=== PATIENT | female | born 1930 | race Caucasian/White ===

== ENCOUNTER 2021-07-25 14:07 | Observation (INO) | payer MEDICARE, OTHER ==
[~2021-07-25] VITALS: Ht 165.1 cm; Wt 58.9 kg
[2021-07-25] MEDS ORDERED: LEVO50TA5 PO (15:16)
[2021-07-25] MEDS ORDERED: ASPI-630 PO (15:16)
[2021-07-25] MEDS ORDERED: ACET325T21 PO (15:16)
[2021-07-25] MEDS ORDERED: CITA20TA6 PO (15:16)
[2021-07-25] MEDS ORDERED: TWOCAL HN PO (15:16)
[2021-07-25] MEDS ORDERED: GABA-586 PO (15:16)
[2021-07-25] MEDS ORDERED: ACET-1874 PO (15:16)
[2021-07-25] MEDS ORDERED: PANT40TA3 PO (15:16)
[2021-07-25] MEDS ORDERED: DONE10TA61 PO (15:16)
[2021-07-25 15:56] VITALS: BP 115/71
[2021-07-25] MEDS ORDERED: QUET25TA5 PO (15:57)
[2021-07-25] MEDS ORDERED: QUEtiapine 25 MG TABLET. PO PRN (16:00)
[2021-07-25] MEDS ORDERED: ACETAMINOPHEN 325 MG TABLET PO PRN (16:00)
[2021-07-25 17:15] LABS: BASO % 1 % (0-3); EOS # 0.1 x10^3/uL (0.0-0.7); EOS % 2 % (0-3); HEMATOCRIT 38.4 % (36.0-47.0); HEMOGLOBIN 12.3 g/dL (12.0-15.5); LYMPH # 1.6 x10^3/uL (1.0-4.8); LYMPH % 26 % (24-48); MEAN CORPUSCULAR HEMOGLOBIN 28 pg (25-35); MEAN CORPUSCULAR HGB CONC 32 g/dL (31-37); MEAN CORPUSCULAR VOLUME 87 fL (79-100); MONO # 0.5 x10^3/uL (0.0-1.1); MONO % 8 % (0-9); NEUT % 64 % (31-73); PLATELET COUNT 245 x10^3/uL (140-400); RED BLOOD COUNT 4.43 x10^6/uL (3.50-5.40); RED CELL DISTRIBUTION WIDTH 15.9 % (11.5-14.5); WHITE BLOOD COUNT 6.2 x10^3/uL (4.0-11.0)
[2021-07-25 17:33] LABS: ALBUMIN/GLOBULIN RATIO 0.9 (1.0-1.7); CALCIUM 8.4 mg/dL (8.5-10.1); CREATININE 0.8 mg/dL (0.6-1.0); GFR 67.7; MAGNESIUM 2.3 mg/dL (1.8-2.4); POTASSIUM 3.8 mmol/L (3.5-5.1); TOTAL BILIRUBIN 0.2 mg/dL (0.2-1.0); TOTAL PROTEIN 6.4 g/dL (6.4-8.2)
--- NOTE | 2021-07-25 17:38 | NUR ---
NURSING NOTE ADMIT ADMIT TO ROOM 124 FOR [facility] 48 HOUR HOLD. PT WILL NOT STAY IN HER ROOM, VERBALLY AGGRESSIVE, ATTEMPT TO ELOPE, YELLING, DEMANDING. UNABLE TO RE DIRECT PT TO HER ROOM. NURSING CONSULTING SYSTEMS ENGINEER NOTIFIED, JOSH, STATES OKAY TO LEAVE DOOR OPEN AND HAVE GUS RAMOS MONITOR HER FOR ELOPEMENT UNTIL PT CAN CALM DOWN. DR DOAN NOTIFIED OF ADMISSION, HOME MEDS RECONCILED. PT REFUSED DINNER. NIA BERMUDEZ.
[2021-07-25] MEDS ORDERED: HALOPERIDOL LACT 5 MG/ML VIAL. IM ONE (17:45)
[2021-07-25 19:53] VITALS: BP 124/78
[2021-07-25] MEDS ORDERED: GABAPENTIN 300 MG CAPSULE. PO SCH (21:00)
[2021-07-25] MEDS ORDERED: DONEPEZIL HCL 10 MG TABLET PO SCH (21:00)
--- NOTE | 2021-07-26 00:40 | NUR ---
Nursing Note Pt in room confused, walks out periodically looking for her , difficult to redirect at times. Takes po meds willingly whole. Denies pain or other complaints lungs are clear. Resting in bed with the TV on at this time. Cooperative with redirection.
[2021-07-26] MEDS ORDERED: LEVOTHYROXINE 50 MCG TABLET PO SCH (06:00)
--- NOTE | 2021-07-26 07:40 | NUR ---
Nursing Note Report given to Kiana KRAMER on [facility], [phone]. Documents faxed to [facility].
[2021-07-26] MEDS ORDERED: PANTOPRAZOLE 40 MG TABLET. PO SCH (09:00)
[2021-07-26] MEDS ORDERED: CITALOPRAM 20 MG TABLET. PO SCH (09:00)
[2021-07-26] MEDS ORDERED: ASPIRIN CHEWABLE 81 MG TABLET. PO SCH (09:00)
[2021-07-26 18:37] LABS: FREE T4 1.01 ng/dL (0.76-1.46); THYROID STIM HORMONE (TSH) 2.403 uIU/mL (0.358-3.740)
[2021-07-27 01:12] LABS: HEMOGLOBIN A1C 5.6 % (4.8-5.6)
--- NOTE | 2021-07-30 02:37 | SSS ---
ADMIT DATE: 07/25/2021 HISTORY OF PRESENT ILLNESS: The patient is an 89-year-old female patient, resident at [facility] in [facility] by her primary care physician on account of worsening confusion within the context of her diagnosis of major neurocognitive disorder, Alzheimer, vascular with delusion, depression. She was admitted to [address] [place] [address] and there was screened for coronavirus and as her coronavirus by PCR was negative, she was admitted to [facility] for inpatient psychiatric stabilization. PAST MEDICAL HISTORY: Significant for history of encephalopathy, status post urinary tract infection, atherosclerotic heart disease, coronary artery disease with angina pectoris, peripheral vascular disease, hypothyroidism, anxiety disorder. PAST SURGICAL HISTORY: Significant for tonsillectomy. ALLERGIES: SHE IS ALLERGIC TO MEPERIDINE, OLANZAPINE, TRAZODONE, AMBIEN, AND DEMEROL. CODE STATUS: Full. FAMILY HISTORY: Noncontributory. SOCIAL HISTORY: She is currently a resident at [facility] in [place], [place]. She apparently does not smoke, drink alcohol or use any recreational drugs. MEDICATIONS: She is currently on following medications: Sertraline 50 mg daily, gabapentin 600 mg at bedtime, Aricept 10 mg at bedtime, aspirin 81 mg once a day, milk of magnesia 30 mL p.o. daily p.r.n. for constipation, multivitamin one tablet once a day, Protonix 40 mg once a day, levothyroxine sodium 50 mcg daily and quetiapine fumarate 12.5 mg every 4 hours and acetaminophen 650 mg daily. PHYSICAL EXAMINATION: GENERAL: On examining her, the patient was somewhat pale, but no jaundice, cyanosis, no lymphadenopathy, no thyromegaly, no jugular venous distention. No limb edema. VITAL SIGNS: Her heart rate was 61, blood pressure was 124/78, temperature was 98.2, respiratory rate was 18 and oxygen saturation was 93% on room air. HEENT: She is normocephalic, atraumatic. NECK: Supple. HEART: Normal first and second heart sounds, no gallop, rub or murmur. CHEST: Clear to auscultation. No crepitation or rhonchi. ABDOMEN: Scaphoid, soft, nontender. NEUROLOGIC: She was grossly intact. All her cranial nerves are intact. She moves extremities without difficulty. She ambulates without assistance or assistive devices. LABORATORY DATA: Her lab work on admission showed a white cell count of 6200, hemoglobin 12, hematocrit 38, MCV 87 and platelet count 245,000 with normal manual differential. Her chemistry showed a serum sodium of 141, potassium 3.8, chloride 107, bicarbonate 27, anion gap of 7, BUN 23, creatinine 0.8. Estimated GFR was 67 mL per minute. Her glucose was 104, calcium was 8.4, magnesium was 2.3. Total bilirubin, AST, ALT, alkaline phosphatase were normal. Total protein 6.4, albumin 3. Her TSH was 2.403. Her free T4 was 1.01 and total T3 was 73. Her vitamin B12 was 301 picograms per mL and 25-hydroxy vitamin D was low at 24. Her serum triglycerides was 155. Total cholesterol was 221, LDL cholesterol 119, VLDL was 31, HDL cholesterol was 72 and the ratio was 3. Her serum iron was 54, TIBC was 326 and iron saturation was 17. Her hemoglobin A1c was 5.6. Her D-dimer was only 0.4 mg per liter and her treponema pallidum antibodies were nonreactive and coronavirus by PCR was negative. ASSESSMENT AND PLAN: The patient was [facility] to [facility] for inpatient psychiatric stabilization by her primary care physician on account of worsening confusion within the context of her diagnosis of major neurocognitive disorder. She apparently has been extremely impulsive, aggressive, throwing tables, combative towards her and was admitted for inpatient psychiatric stabilization. CARLA MARIE: Nav TID: [id number]
== END 2021-07-26 07:34 ==
LOC: 1 SOUTH 15:52
PROVIDERS: ADMIT Hospitalist; ATTEND Hospitalist
DX: G30.9 Alzheimer's disease, unspecified (principal); F02.80 Dementia in other diseases classified elsewhere, unspecified severity, without behavioral disturbance, psychotic disturbance, mood disturbance, and anxiety; F32.9 Major depressive disorder, single episode, unspecified; I25.10 Atherosclerotic heart disease of native coronary artery without angina pectoris; E03.9 Hypothyroidism, unspecified; I73.9 Peripheral vascular disease, unspecified
CPT/HCPCS: G0378 ×2; 36415; 80053; 80061; 82306; 82607; 83036; 83540; 83550; 83735; 84439; 84443; 84480; 85025; 85379; 86592; 87426; 93005; G0379; U0003

== ENCOUNTER 2021-07-26 07:35 | Inpatient (IN) | payer MEDICARE, OTHER ==
[~2021-07-26] VITALS: Ht 167.6 cm; Wt 61.0 kg
[~2021-07-26 07:35] MED LIST: ACET-1874 PO; ACET325T21 PO; ASPI-630 PO; CITA20TA6 PO; DONE10TA61 PO; GABA-586 PO; LEVO50TA5 PO; PANT40TA3 PO; QUET25TA5 PO; TWOCAL HN PO
[2021-07-26] MEDS ORDERED: ACETAMINOPHEN 325 MG TABLET PO PRN ×2 (07:45→08:15)
[2021-07-26 08:15] VITALS: BP 102/67
[2021-07-26] MEDS ORDERED: METHYL SALICYLATE/MENTHOL TOPICAL OINTMENT 57GM TUBE. TP PRN (08:15)
[2021-07-26] MEDS ORDERED: MAG HYDROX/AL HYDROX/SIMETH 30 ML ORAL.SUSP PO PRN (08:15)
[2021-07-26] MEDS ORDERED: MAGNESIUM HYDROXIDE 2,400 MG/30 ML ORAL.SUSP. PO PRN (08:15)
--- NOTE | 2021-07-26 08:16 | NUR ---
Admission Note with Justification for Admission to [facility] Patient admitted to [facility] for protective oversight for emergency stabilization of acute psychiatric crisis. Pt admitted from: SNF Mode of arrival: W/C Accompanied By: [facility] Staff Precipitating behaviors that initiated intake and admission: Pt was agitated, verbally aggressive, irritable, throwing food, cursing exit seeking. Description of failure of out patient attempts at stabilization in previous setting list behavior and medication trials: Med adjustments attempted, behavior modification techniques but but unable to be managed as an outpatient. Behaviors and assessment findings upon admission: Pt pleasant but irritable, compliant with meds and assessments. Poor short term memory follows commands. Plan: Admit for protective oversight for adjustment and stabilization of medications, behaviors and mood. Intense treatment regimen including groups, medication adjustments, therapy, consistent regimen for ADL's, self care, and sleep hygiene. Daily monitoring by Inpatient staff, Psychiatry, and Medical Physician.
[2021-07-26 08:58] LABS: BACTERIA,URINE 0 /HPF (0-FEW); BILIRUBIN,URINE NEG (NEG); CLARITY,URINE CLEAR; COLOR,URINE YELLOW; GLUCOSE,URINE NEG (NEG); NITRITE,URINE NEG (NEG); RBC,URINE 0 /HPF (0-2); SQUAMOUS EPITHELIAL CELL,UR FEW /LPF; UROBILINOGEN,URINE 0.2 mg/dL (0.2 mg/dL); WBC,URINE OCC /HPF (0-4)
[2021-07-26] MEDS ORDERED: [UNRECOGNIZED DRUG - OTHER] PO SCH (09:00)
[2021-07-26] MEDS: PANTOPRAZOLE 40 MG TABLET. PO SCH (09:19)
[2021-07-26] MEDS: LEVOTHYROXINE 50 MCG TABLET PO SCH (09:19)
[2021-07-26] MEDS: ASPIRIN CHEWABLE 81 MG TABLET. PO SCH (09:19)
[2021-07-26] MEDS: CITALOPRAM 20 MG TABLET. PO SCH (09:19)
--- NOTE | 2021-07-26 14:49 | NUR ---
Risk management/legal has reviewed Vnaesa Justin's POA HC document and determined that all three persons listed on the document are POA's. Therefore, information can be shared with each person listed on the POA document. BASSEM called Serafin Zheng, brother, back as Serafin had spoken to BASSEM earlier in the day requesting an update. Informed Serafin of risk management/legal determination and answered questions that Serafin had. Provided Serafin with pass code for future updates. BASSEM contacted Lisa, daughter, to inform of above as Lisa had completed consent to treats for Vanesa Justin's admission.
[2021-07-26 15:58] VITALS: BP 114/75
--- NOTE | 2021-07-26 17:00 | NUR ---
Nursing note: Pt has been pleasant, med compliant and cooperative this shift. She has had no complaints of pain/concerns. This afternoon, pt did begin to get worked up and paced the hallway, but was able to calm down on her own. She is currently sitting quietly in her room preparing for supper. Will continue to monitor.
[2021-07-26] MEDS: DONEPEZIL HCL 10 MG TABLET PO SCH (21:56)
[2021-07-26] MEDS: GABAPENTIN 300 MG CAPSULE. PO SCH (21:56)
--- NOTE | 2021-07-26 22:02 | PDOC ---
Exam Note: Ignacio Note: Please also refer to the separate dictated note~for this date of service dictated separately.~Patient seen individually. Discussed the patient with Nursing staff reviewed the chart.~Reviewed interim history and current functioning. Reviewed vital signs,~Labs/ Radiology~and current medications noted below. Continue current treatment with the changes noted in the dictated addendum note Assessment: Vital Signs/I&O: Vital Signs Date Time Temp Pulse Resp B/P (MAP) Pulse Ox O2 Delivery O2 Flow Rate FiO2 07/26/21 15:58 98.6 79 16 114/75 (88) 95 Labs: Laboratory Tests Test 07/26/21 08:00 Urine Collection Type Unknown Urine Color Yellow Urine Clarity Clear Urine pH 5.5 Urine Specific Stewart 1.025 Urine Protein Neg (NEG-TRACE) Urine Glucose (UA) Neg mg/dL (NEG) Urine Ketones (Stick) Neg mg/dL (NEG) Urine Blood Neg (NEG) Urine Nitrite Neg (NEG) Urine Bilirubin Neg (NEG) Urine Urobilinogen Dipstick 0.2 mg/dL (0.2 mg/dL) Urine Leukocyte Esterase Neg (NEG) Urine RBC 0 /HPF (0-2) Urine WBC Occ /HPF (0-4) Urine Squamous Epithelial Cells Few /LPF Urine Bacteria 0 /HPF (0-FEW) Urine Mucus Mod /LPF Current Medications: Meds: Current Medications Medications (Trade) Dose Ordered Sig/Ruth Route PRN Reason Start Time Stop Time Status Last Admin Dose Admin Aspirin (Aspirin Chewable) 81 mg DAILY PO 07/26/21 09:00 07/26/21 09:19 Citalopram Hydrobromide (CeleXA) 20 mg DAILY PO 07/26/21 09:00 07/26/21 09:19 Donepezil HCl (Aricept) 10 mg QHS PO 07/26/21 21:00 07/26/21 21:56 Gabapentin (Neurontin) 600 mg HS PO 07/26/21 21:00 07/26/21 21:56 Levothyroxine Sodium (Synthroid) 50 mcg DAILY06 PO 07/26/21 08:00 07/26/21 09:19 Pantoprazole Sodium (Protonix) 40 mg DAILYAC PO 07/26/21 08:00 07/26/21 09:19 I have reviewed the current psychotropics carefully including drug interactions. Risk benefit ratio favors no change other than as noted in my dictated progress note. Diagnosis: Problems: (1) Major neurocognitive disorder EVANS KWON MD Jul 26, 2021 22:02
--- NOTE | 2021-07-27 01:01 | NUR ---
Nursing Note The patient was located in her room laying in bed for her assessment and medication pass. The patient was pleasant during interactions with this nurse. The patient was alert to name only. The patient was compliant with her medications and took her medication whole. The patient is currently sleeping in her room.
[2021-07-27] MEDS: LEVOTHYROXINE 50 MCG TABLET PO SCH (06:07)
[2021-07-27 06:19] VITALS: BP 101/62
[2021-07-27] MEDS: CITALOPRAM 20 MG TABLET. PO SCH (08:56)
[2021-07-27] MEDS: ASPIRIN CHEWABLE 81 MG TABLET. PO SCH (08:56)
[2021-07-27] MEDS: PANTOPRAZOLE 40 MG TABLET. PO SCH (08:57)
--- NOTE | 2021-07-27 11:03 | NUR ---
WEEKLY ACTIVITY THERAPY NOTE Date of Admission: 07/26/21 Date of AT Assessment:TBD Precipitating behaviors that initiated intake and admission: Pt was agitated, verbally aggressive, irritable, throwing food, cursing exit seeking. Goal aimed: TBD Initial Goal: TBD Weekly progress towards goal: NA Group participation level: 1 full Weekly highlights: accepted a couple of magazines during meet the needs group Behaviors observed: new patient Plan: meet/assess pt Beneficial adaptations:reading material
--- NOTE | 2021-07-27 11:15 | NUR ---
WEEKLY NOTE/UPDATE: Vanesa is averaging 6.75 hours of sleep at night and intake of meals have been 70%. Vanesa is a new admit to [facility] as of 07/26/21. Vanesa is alert with confusion. She is oriented to herself and the year. She has been calm and cooperative taking medications whole. She has been observed to be helpful to others and accepted magazines from recreational therapy. Vanesa's family has strained relationships amongst themselves, including refusing to talk to one another and calling one another foul names. Lisa, daughter/ one POA, has expressed interest in moving Vanesa and her spouse to [place] to be closer to her. Vanesa has most recently been residing at [facility] and will return there if other arrangements are not in place at time of tentative d/c the middle of week after next. BASSEM Hollis, will follow Vanesa's case while hospitalized.
--- NOTE | 2021-07-27 11:25 | NUR ---
ACTIVITY THERAPY ASSESSMENT completed based on notes, observation and interview. Pt was agreeable to answer assessment questions. Pt said that she was not feeling well and her stomach felt nauseated. AT asked pt what activities she enjoys and she said playing with her grandkids, reading, watching tv/movies and sometimes crosswords. Pt was able to answer when her birthday is but stated the current year was 1929 and then 1829. Pt was unaware of the city she was in but is aware that she is in the hospital. Pt said that she lives in [place], [place] with her brother and . Pt said she thinks she has been for 30 years and has two children from a previous marriage. Pt reports that both of her children live in [place] but she is in good contact with them. Pt said that she lived in [place] for a few years but moved back when her parents became ill. AT asked pt if she reports and stress and she said yes because she is missing her kids. Pt said that she does not cope with stress very well. AT then asked pt if she ambulates well and she said she is able to move independently. Pt also reported that she has two dogs at home that are like her children. Pt remained calm and pleasant throughout assessment. Pt did appear to be a bit anxious at times. Per notes pt has been compliant and pleasant with staff. Initial goal aimed to increase stress management and relaxation skills. Pt will participate in at least five individual or group Activity Therapy sessions per week.
--- NOTE | 2021-07-27 13:10 | NUR ---
Pt is refusing to eat any meals stating that her stomach hurts. Nursing tried to get her to drink fluids and eat some crackers, because she had taken her morning medications, but she refused. She has been delusional, agitated, and aggressive throughout the day. Pt thinks she is a worker here at the [facility] and that we are holding her here at the hospital and not letting her leave. Pt called her nurse a "shan ass" and an "idiot" because her nurse was explaining to her she could not leave until the doctor cleared her to be discharged. She then told the nurse that no one is going to stop her from leaving the unit and she will make sure she gets out. Nurse told if she needed anything to please let her know and pt said back "I won't need anything from you, dumb bitch" and then followed up "and if I do need something, I will find someone that isn't you!"
--- NOTE | 2021-07-27 13:21 | NUR ---
BASSEM returned call to wilian Gonzalez, and provided update as requested.
[2021-07-27 16:30] VITALS: BP 130/80
[2021-07-27] MEDS: DONEPEZIL HCL 10 MG TABLET PO SCH (21:54)
[2021-07-27] MEDS: GABAPENTIN 300 MG CAPSULE. PO SCH (21:54)
--- NOTE | 2021-07-27 22:20 | PDOC ---
Exam Note: Ignacio Note: Please also refer to the separate dictated note~for this date of service dictated separately.~Patient seen individually. Discussed the patient with Nursing staff reviewed the chart.~Reviewed interim history and current functioning. Reviewed vital signs,~Labs/ Radiology~and current medications noted below. Continue current treatment with the changes noted in the dictated addendum note Assessment: Vital Signs/I&O: Vital Signs Date Time Temp Pulse Resp B/P (MAP) Pulse Ox O2 Delivery O2 Flow Rate FiO2 07/27/21 16:30 97.9 72 18 130/80 (97) 93 I & O 07/26/21 07/26/21 07/27/21 14:00 22:00 06:00 Intake Total 360 ml 480 ml 240 ml Balance 360 ml 480 ml 240 ml Current Medications: Meds: Current Medications Medications (Trade) Dose Ordered Sig/Ruth Route PRN Reason Start Time Stop Time Status Last Admin Dose Admin Acetaminophen (Tylenol) 650 mg PRN Q6HRS PRN PO pain or fever 07/26/21 07:45 Aspirin (Aspirin Chewable) 81 mg DAILY PO 07/26/21 09:00 07/27/21 08:56 Citalopram Hydrobromide (CeleXA) 20 mg DAILY PO 07/26/21 09:00 07/27/21 10:11 DC 07/27/21 08:56 Donepezil HCl (Aricept) 10 mg QHS PO 07/26/21 21:00 07/27/21 21:54 Gabapentin (Neurontin) 600 mg HS PO 07/26/21 21:00 07/27/21 21:54 Levothyroxine Sodium (Synthroid) 50 mcg DAILY06 PO 07/26/21 08:00 07/27/21 06:07 Pantoprazole Sodium (Protonix) 40 mg DAILYAC PO 07/26/21 08:00 07/27/21 08:57 Quetiapine Fumarate (SEROquel) 12.5 mg PRN Q4HRS PRN PO ANXIETY / AGITATION 07/26/21 07:45 Non-Formulary Medication ([TwoCal HN 2.0 liq] ) 60 ml BID PO 07/26/21 09:00 07/26/21 08:01 DC Acetaminophen (Tylenol) 650 mg PRN Q6HRS PRN PO MILD PAIN / TEMP > 100.3'F 07/26/21 08:15 07/26/21 08:33 DC Multi-Ingredient Ointment (Analgesic [place]) 1 judith PRN QID PRN TP MUSCLE PAIN 07/26/21 08:15 Al Hydroxide/Mg Hydroxide (Mylanta Plus Xs) 15 ml PRN AFTMEALHC PRN PO DYSPEPSIA 07/26/21 08:15 Magnesium Hydroxide (Milk Of Magnesia) 2,400 mg PRN QHS PRN PO CONSTIPATION 07/26/21 08:15 Sertraline HCl (Zoloft) 50 mg DAILY PO 07/28/21 09:00 I have reviewed the current psychotropics carefully including drug interactions. Risk benefit ratio favors no change other than as noted in my dictated progress note. Diagnosis: Problems: (1) Major neurocognitive disorder EVANS KWON MD Jul 27, 2021 22:20
--- NOTE | 2021-07-27 23:10 | HP ---
ADMIT DATE: 07/26/2021 PSYCHIATRIC ADMISSION AND HISTORY/EVALUATION This is a late entry, date of service 07/26/2021, covers the elements not covered in my initial note of 07/26/2021. IDENTIFYING DATA: The patient is an 89-year-old female referred to us from [facility] in [place], [place] by Dr. Anderson, primary care physician on account of worsening confusion within the context of her diagnosis of major neurocognitive disorder, Alzheimer, vascular with delusion, depression. She has been extremely impulsive, aggressive, tells her daughter she wants out of this world. She threw a table, was combative towards her and peer, agitated, verbally aggressive, cursing, exit seeking and throwing food. She failed outpatient psychiatric interventions resulting in this referral. I met with the patient on the evening of 07/26, discussed with nursing staff, reviewed the chart and previously discussed with Maame Lu, quality management coordinator. CHIEF COMPLAINT: "I'm okay." HISTORY OF PRESENT ILLNESS: The patient has a history of dementia, Alzheimer's, vascular type with worsening symptoms of depression and making suicidal statements in the recent past. She has appeared more confused, had sleep and appetite changes. No active homicidal ideation. Denies active suicidal ideation. She has been somewhat paranoid. No clear history of bipolar disorder. PAST PSYCHIATRIC HISTORY: As above. MEDICAL HISTORY: History of encephalopathy, status post urinary tract infection, atherosclerotic heart disease, coronary artery disease, angina pectoris, peripheral vascular disease, hypothyroidism, anxiety disorder. DRUG ALLERGIES: MEPERIDINE, OLANZAPINE, TRAZODONE, AMBIEN, DEMEROL. CODE STATUS: Full code. ACCU-CHEKS: None. DIET: Regular. Takes medications whole. Ambulates independently. UA is negative. FAMILY HISTORY: Noncontributory. SOCIAL HISTORY: No history of alcohol, drug abuse, physical, sexual or elder abuse. The patient is not known to be a perpetrator. REACTION TO HOSPITALIZATION: The patient accepting of it. IMPRESSION: Major neurocognitive disorder, Alzheimer, vascular with delusion, depression, behavioral disturbance, anxiety disorder, unspecified; impulse control disorder, unspecified; major depressive disorder, recurrent, severe. Rest unchanged from above. PLAN: Admit to Geropsychiatry unit at [facility]. I will see the patient daily individually from a psychiatric standpoint, medical followup, Dr. Cabrera/Dr. Valentin. Continue current psychotropics. We will consider adjustments in psychotropics post baseline. ESTIMATED LENGTH OF STAY: 10-12 days. DISPOSITION PLAN: Back to [facility] when stable. RICARDO/NIRAJ DR: RICARDO/anastasiya TID: [id number]
--- NOTE | 2021-07-28 00:04 | NUR ---
Nursing Note Pt in good spirits, pleasant and cooperative. No behaviors noted.
--- NOTE | 2021-07-28 00:48 | NUR ---
Nursing Note Pt wanders about in the [place], cooperative and compliant with meds and assessments. Pt denies complaints is confused with zero short term memory.
[2021-07-28] MEDS: LEVOTHYROXINE 50 MCG TABLET PO SCH (06:00)
[2021-07-28 06:13] VITALS: BP 124/73
[2021-07-28] MEDS: ASPIRIN CHEWABLE 81 MG TABLET. PO SCH (08:08)
[2021-07-28] MEDS: PANTOPRAZOLE 40 MG TABLET. PO SCH (08:08)
[2021-07-28] MEDS: SERTRALINE 50 MG TABLET. PO SCH (08:09)
--- NOTE | 2021-07-28 09:46 | PDOC ---
Exam Note: Ignacio Note: This note is a late entry for 07/27/2021 covers elements not covered in my initial note. Subjective: The patient was reviewed at treatment team meeting individually in the morning on 07/27/2021 with Michelle Tellez (social work case manager), Sima, activity therapy and Mustapha RN, discussed and reviewed the chart. The patient slept 6-3/4 hours previous night. She was helping the activity therapy staff with the cart. Discussed also with Ann RN in the evening, somewhat delusional in the evening, believed she worked here. Review of Systems: Ambulation impaired. No CV, , pulmonary, eye, ENT system symptoms on review. Reliability poor. Mental Status Exam: The patient is oriented to herself and year. Insight and judgment, recent and remote memory, attention and concentration, fund of knowledge is poor consistent with her diagnoses. Laboratory Data: Reviewed. Impression: Major neurocognitive disorder Alzheimer vascular with delusion, depression, behavioral disturbance. Anxiety disorder, unspecified. Impulse control disorder, unspecified. Plan: No change from initial note. Assessment: Vital Signs/I&O: Vital Signs Date Time Temp Pulse Resp B/P (MAP) Pulse Ox O2 Delivery O2 Flow Rate FiO2 07/28/21 06:13 96.9 70 14 124/73 (90) 91 I & O 07/27/21 07/27/21 07/28/21 14:00 22:00 06:00 Intake Total 360 ml 120 ml 120 ml Balance 360 ml 120 ml 120 ml Current Medications: Meds: Current Medications Medications (Trade) Dose Ordered Sig/Ruth Route PRN Reason Start Time Stop Time Status Last Admin Dose Admin Sertraline HCl (Zoloft) 50 mg DAILY PO 07/28/21 09:00 07/28/21 08:09 I have reviewed the current psychotropics carefully including drug interactions. Risk benefit ratio favors no change other than as noted in my dictated progress note. 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
--- NOTE | 2021-07-28 10:19 | NUR ---
Nurse Note Patient up for meals, Compliant with medication. No new behaviors noted. makes needs known to staff.socializes with staff and other patients.
[2021-07-28 15:43] VITALS: BP 106/58
[2021-07-28] MEDS: GABAPENTIN 300 MG CAPSULE. PO SCH (20:27)
[2021-07-28] MEDS: DONEPEZIL HCL 10 MG TABLET PO SCH (20:27)
--- NOTE | 2021-07-28 22:05 | PDOC ---
Exam Note: Ignacio Note: Please also refer to the separate dictated note~for this date of service dictated separately.~Patient seen individually. Discussed the patient with Nursing staff reviewed the chart.~Reviewed interim history and current functioning. Reviewed vital signs,~Labs/ Radiology~and current medications noted below. Continue current treatment with the changes noted in the dictated addendum note Assessment: Vital Signs/I&O: Vital Signs Date Time Temp Pulse Resp B/P (MAP) Pulse Ox O2 Delivery O2 Flow Rate FiO2 07/28/21 15:43 98.9 94 18 106/58 (74) 97 Room Air I & O 07/27/21 07/27/21 07/28/21 14:00 22:00 06:00 Intake Total 360 ml 120 ml 120 ml Balance 360 ml 120 ml 120 ml Current Medications: Meds: Current Medications Medications (Trade) Dose Ordered Sig/Ruth Route PRN Reason Start Time Stop Time Status Last Admin Dose Admin Acetaminophen (Tylenol) 650 mg PRN Q6HRS PRN PO pain or fever 07/26/21 07:45 Aspirin (Aspirin Chewable) 81 mg DAILY PO 07/26/21 09:00 07/28/21 08:08 Citalopram Hydrobromide (CeleXA) 20 mg DAILY PO 07/26/21 09:00 07/27/21 10:11 DC 07/27/21 08:56 Donepezil HCl (Aricept) 10 mg QHS PO 07/26/21 21:00 07/28/21 20:27 Gabapentin (Neurontin) 600 mg HS PO 07/26/21 21:00 07/28/21 20:27 Levothyroxine Sodium (Synthroid) 50 mcg DAILY06 PO 07/26/21 08:00 07/28/21 06:00 Pantoprazole Sodium (Protonix) 40 mg DAILYAC PO 07/26/21 08:00 07/28/21 08:08 Quetiapine Fumarate (SEROquel) 12.5 mg PRN Q4HRS PRN PO ANXIETY / AGITATION 07/26/21 07:45 Non-Formulary Medication ([TwoCal HN 2.0 liq] ) 60 ml BID PO 07/26/21 09:00 07/26/21 08:01 DC Acetaminophen (Tylenol) 650 mg PRN Q6HRS PRN PO MILD PAIN / TEMP > 100.3'F 07/26/21 08:15 07/26/21 08:33 DC Multi-Ingredient Ointment (Analgesic Solomon) 1 judith PRN QID PRN TP MUSCLE PAIN 07/26/21 08:15 Al Hydroxide/Mg Hydroxide (Mylanta Plus Xs) 15 ml PRN AFTMEALHC PRN PO DYSPEPSIA 07/26/21 08:15 Magnesium Hydroxide (Milk Of Magnesia) 2,400 mg PRN QHS PRN PO CONSTIPATION 07/26/21 08:15 Sertraline HCl (Zoloft) 50 mg DAILY PO 07/28/21 09:00 07/28/21 08:09 Current Medications Medications (Trade) Dose Ordered Sig/Ruth Route PRN Reason Start Time Stop Time Status Last Admin Dose Admin Sertraline HCl (Zoloft) 50 mg DAILY PO 07/28/21 09:00 07/28/21 08:09 I have reviewed the current psychotropics carefully including drug interactions. Risk benefit ratio favors no change other than as noted in my dictated progress note. Diagnosis: Problems: (1) Major neurocognitive disorder (2) Impulse control disorder, unspecified (3) Anxiety disorder, unspecified (4) Dementia, vascular, with depression (5) Dementia, vascular, with delusions (6) Dementia in Alzheimer's disease with depression (7) Dementia in Alzheimer's disease with delusions (8) Dementia of the Alzheimer's type with early onset with behavioral disturbance EVANS KWON MD Jul 28, 2021 22:05
[2021-07-29 04:30] VITALS: BP 113/70
[2021-07-29] MEDS: LEVOTHYROXINE 50 MCG TABLET PO SCH (06:00)
[2021-07-29] MEDS: SERTRALINE 50 MG TABLET. PO SCH (08:30)
[2021-07-29] MEDS: PANTOPRAZOLE 40 MG TABLET. PO SCH (08:30)
[2021-07-29] MEDS: ASPIRIN CHEWABLE 81 MG TABLET. PO SCH (08:30)
--- NOTE | 2021-07-29 10:20 | NUR ---
Pt remains confused and disorganized this shift. Absent of SI/HI/VH/AH/delusions/pain at this time. Pt absent of verbal aggression towards staff. She is compliant with whole medications and has no complaints/concerns at this time. Plan of care continues, will pass to next shift.
[2021-07-29 15:04] VITALS: BP 125/67
[2021-07-29] MEDS: GABAPENTIN 300 MG CAPSULE. PO SCH (20:26)
[2021-07-29] MEDS: DONEPEZIL HCL 10 MG TABLET PO SCH (20:26)
--- NOTE | 2021-07-29 22:17 | PDOC ---
Exam Note: Ignacio Note: Please also refer to the separate dictated note~for this date of service dictated separately.~Patient seen individually. Discussed the patient with Nursing staff reviewed the chart.~Reviewed interim history and current functioning. Reviewed vital signs,~Labs/ Radiology~and current medications noted below. Continue current treatment with the changes noted in the dictated addendum note Assessment: Vital Signs/I&O: Vital Signs Date Time Temp Pulse Resp B/P (MAP) Pulse Ox O2 Delivery O2 Flow Rate FiO2 07/29/21 15:04 98.0 78 18 125/67 (86) 97 07/28/21 15:43 Room Air I & O 07/28/21 07/28/21 07/29/21 14:00 22:00 06:00 Intake Total 700 ml 240 ml 240 ml Balance 700 ml 240 ml 240 ml Current Medications: Meds: Current Medications Medications (Trade) Dose Ordered Sig/Ruth Route PRN Reason Start Time Stop Time Status Last Admin Dose Admin Acetaminophen (Tylenol) 650 mg PRN Q6HRS PRN PO pain or fever 07/26/21 07:45 Aspirin (Aspirin Chewable) 81 mg DAILY PO 07/26/21 09:00 07/29/21 08:30 Citalopram Hydrobromide (CeleXA) 20 mg DAILY PO 07/26/21 09:00 07/27/21 10:11 DC 07/27/21 08:56 Donepezil HCl (Aricept) 10 mg QHS PO 07/26/21 21:00 07/29/21 20:26 Gabapentin (Neurontin) 600 mg HS PO 07/26/21 21:00 07/29/21 20:26 Levothyroxine Sodium (Synthroid) 50 mcg DAILY06 PO 07/26/21 08:00 07/29/21 06:00 Pantoprazole Sodium (Protonix) 40 mg DAILYAC PO 07/26/21 08:00 07/29/21 08:30 Quetiapine Fumarate (SEROquel) 12.5 mg PRN Q4HRS PRN PO ANXIETY / AGITATION 07/26/21 07:45 Non-Formulary Medication ([TwoCal HN 2.0 liq] ) 60 ml BID PO 07/26/21 09:00 07/26/21 08:01 DC Acetaminophen (Tylenol) 650 mg PRN Q6HRS PRN PO MILD PAIN / TEMP > 100.3'F 07/26/21 08:15 07/26/21 08:33 DC Multi-Ingredient Ointment (Analgesic [place]) 1 judith PRN QID PRN TP MUSCLE PAIN 07/26/21 08:15 Al Hydroxide/Mg Hydroxide (Mylanta Plus Xs) 15 ml PRN AFTMEALHC PRN PO DYSPEPSIA 07/26/21 08:15 Magnesium Hydroxide (Milk Of Magnesia) 2,400 mg PRN QHS PRN PO CONSTIPATION 07/26/21 08:15 Sertraline HCl (Zoloft) 50 mg DAILY PO 07/28/21 09:00 07/29/21 08:30 I have reviewed the current psychotropics carefully including drug interactions. Risk benefit ratio favors no change other than as noted in my dictated progress note. Diagnosis: Problems: (1) Major neurocognitive disorder (2) Impulse control disorder, unspecified (3) Anxiety disorder, unspecified (4) Dementia, vascular, with depression (5) Dementia, vascular, with delusions (6) Dementia in Alzheimer's disease with depression (7) Dementia in Alzheimer's disease with delusions (8) Dementia of the Alzheimer's type with early onset with behavioral disturbance EVANS KWON MD Jul 29, 2021 22:17
--- NOTE | 2021-07-29 23:09 | CONS ---
DATE OF CONSULTATION: 07/29/2021 REASON FOR CONSULTATION: Medical management. HISTORY OF PRESENT ILLNESS: The patient is an 89-year-old female patient who is a resident at [facility], in [place], [place], who was admitted for a short period of time in [address] [place] [address] and was screened for coronavirus and returned to be negative. The patient was admitted to [facility] for inpatient psychiatric stabilization. Apparently, she was referred to this facility by her primary care physician on account of worsening confusion within the context of her diagnosis of major neurocognitive disorder, Alzheimer, vascular with delusion, or depression. Medically, she has multiple medical problems including coronary artery disease with angina pectoris, peripheral vascular disease, hypothyroidism. PAST PSYCHIATRIC HISTORY: Significant for dementia, Alzheimer, vascular type with worsening symptoms of depression and making suicidal statements. PAST SURGICAL HISTORY: Significant for tonsillectomy. ALLERGIES: SHE IS ALLERGIC TO MEPERIDINE, OLANZAPINE, TRAZODONE, AMBIEN, AND DEMEROL. FAMILY HISTORY: Noncontributory. SOCIAL HISTORY: She is currently a resident at [facility] in [place], [place]. She apparently does not smoke, drink alcohol or use recreational drugs. PHYSICAL EXAMINATION: GENERAL: When I examined her this afternoon, she was sitting comfortably in her chair in no apparent respiratory distress. She was somewhat pale, cachectic with a body mass index 21.7. VITAL SIGNS: Her heart rate was 77, blood pressure is 113/70, temperature was 97.7, respiratory rate was 18 and oxygen saturation was 93% on room air. HEAD, EYES, EARS, NOSE, AND THROAT: Normocephalic, atraumatic. NECK: Supple. HEART: Showed normal first and second heart sounds, no gallop, rub or murmur. CHEST: Clear to auscultation. No crepitation or rhonchi. ABDOMEN: Scaphoid, soft, nontender. NEUROLOGIC: She was grossly intact. LABORATORY DATA: Reviewed and were unremarkable except for the fact that 25-hydroxy vitamin D is low at 24.1. PLAN: My plan is obviously to continue with all her current medication. I will start her also on vitamin D. Meanwhile, continue with all her other medication. We will monitor all her labs that are still pending and make any necessary recommendation. Thank you, Dr. Dhillon, for allowing me to participate in the care of this patient. AMM/MANUELA MARIE: Nav TID: [id number]
[2021-07-30] MEDS: LEVOTHYROXINE 50 MCG TABLET PO SCH (06:00)
[2021-07-30 06:14] VITALS: BP 112/68
[2021-07-30] MEDS: PANTOPRAZOLE 40 MG TABLET. PO SCH (07:30)
[2021-07-30] MEDS: ASPIRIN CHEWABLE 81 MG TABLET. PO SCH (08:36)
[2021-07-30] MEDS: SERTRALINE 50 MG TABLET. PO SCH (08:37)
--- NOTE | 2021-07-30 10:44 | NUR ---
RN DAY SHIFT NOTE: PT PRESENTS WITH PLEASANT MOOD/AFFECT. PT WAS MEDICATION COMPLIANT. PT IS LOW-BURK ON THE UNIT. PT IS NOTED TO SPEND TIME IN THE HALLWAY. PT IS INQUISITIVE AND WILL ASK STAFF QUESTIONS ABOUT HER STAY HERE. PT KNEW HER NAME AND BIRTHDAY. WHEN ASKED WHERE SHE IS PT STATED, "IN A ALF." PT VITALS WNL. PT SLEPT 7.75 HOURS LAST NIGHT. PT CONTINUES TO HAVE A GOOD APPETITE. WILL CONTINUE TO MONITOR.
[2021-07-30 15:52] VITALS: BP 117/67
[2021-07-30] MEDS: CHOLECALCIFEROL (VITAMIN D3) 50,000 UNIT CAPSULE PO SCH (20:54)
[2021-07-30] MEDS: GABAPENTIN 300 MG CAPSULE. PO SCH (20:54)
[2021-07-30] MEDS: DONEPEZIL HCL 10 MG TABLET PO SCH (20:54)
--- NOTE | 2021-07-30 22:03 | PDOC ---
Exam Note: Ignacio Note: Please also refer to the separate dictated note~for this date of service dictated separately.~Patient seen individually. Discussed the patient with Nursing staff reviewed the chart.~Reviewed interim history and current functioning. Reviewed vital signs,~Labs/ Radiology~and current medications noted below. Continue current treatment with the changes noted in the dictated addendum note Assessment: Vital Signs/I&O: Vital Signs Date Time Temp Pulse Resp B/P (MAP) Pulse Ox O2 Delivery O2 Flow Rate FiO2 07/30/21 15:52 97.9 87 16 117/67 (84) 94 07/28/21 15:43 Room Air I & O 07/29/21 07/29/21 07/30/21 15:00 23:00 07:00 Intake Total 840 ml 480 ml Balance 840 ml 480 ml Current Medications: Meds: Current Medications Medications (Trade) Dose Ordered Sig/Ruth Route PRN Reason Start Time Stop Time Status Last Admin Dose Admin Acetaminophen (Tylenol) 650 mg PRN Q6HRS PRN PO pain or fever 07/26/21 07:45 Aspirin (Aspirin Chewable) 81 mg DAILY PO 07/26/21 09:00 07/30/21 08:36 Citalopram Hydrobromide (CeleXA) 20 mg DAILY PO 07/26/21 09:00 07/27/21 10:11 DC 07/27/21 08:56 Donepezil HCl (Aricept) 10 mg QHS PO 07/26/21 21:00 07/30/21 20:54 Gabapentin (Neurontin) 600 mg HS PO 07/26/21 21:00 07/30/21 20:54 Levothyroxine Sodium (Synthroid) 50 mcg DAILY06 PO 07/26/21 08:00 07/30/21 06:00 Pantoprazole Sodium (Protonix) 40 mg DAILYAC PO 07/26/21 08:00 07/30/21 07:30 Quetiapine Fumarate (SEROquel) 12.5 mg PRN Q4HRS PRN PO ANXIETY / AGITATION 07/26/21 07:45 Non-Formulary Medication ([TwoCal HN 2.0 liq] ) 60 ml BID PO 07/26/21 09:00 07/26/21 08:01 DC Acetaminophen (Tylenol) 650 mg PRN Q6HRS PRN PO MILD PAIN / TEMP > 100.3'F 07/26/21 08:15 07/26/21 08:33 DC Multi-Ingredient Ointment (Analgesic [place]) 1 judith PRN QID PRN TP MUSCLE PAIN 07/26/21 08:15 Al Hydroxide/Mg Hydroxide (Mylanta Plus Xs) 15 ml PRN AFTMEALHC PRN PO DYSPEPSIA 07/26/21 08:15 Magnesium Hydroxide (Milk Of Magnesia) 2,400 mg PRN QHS PRN PO CONSTIPATION 07/26/21 08:15 Sertraline HCl (Zoloft) 50 mg DAILY PO 07/28/21 09:00 07/30/21 08:37 Vitamin D (Vitamin D3) 50,000 unit WEEKLY PO 07/30/21 16:30 07/30/21 20:54 Current Medications Medications (Trade) Dose Ordered Sig/Ruth Route PRN Reason Start Time Stop Time Status Last Admin Dose Admin Vitamin D (Vitamin D3) 50,000 unit WEEKLY PO 07/30/21 16:30 07/30/21 20:54 I have reviewed the current psychotropics carefully including drug interactions. Risk benefit ratio favors no change other than as noted in my dictated progress note. Diagnosis: Problems: (1) Major neurocognitive disorder (2) Impulse control disorder, unspecified (3) Anxiety disorder, unspecified (4) Dementia, vascular, with depression (5) Dementia, vascular, with delusions (6) Dementia in Alzheimer's disease with depression (7) Dementia in Alzheimer's disease with delusions (8) Dementia of the Alzheimer's type with early onset with behavioral disturbance EVANS KWON MD Jul 30, 2021 22:03
--- NOTE | 2021-07-31 00:06 | NUR ---
Pt sitting in hallway when approached. Pt pleasant, crying and anxious at times, delusional- she thinks her is in the hospital. Pt calmed with re-direction provided by staff. Pt cooperative with assessment and compliant with medications administered whole. No agitation or aggression noted thus far this shift.
[2021-07-31] MEDS: LEVOTHYROXINE 50 MCG TABLET PO SCH (05:20)
[2021-07-31 05:42] VITALS: BP 147/67
--- NOTE | 2021-07-31 06:44 | PDOC ---
Exam Note: Ignacio Note: This note is a late entry for 07/28/2021 covers elements not covered in my initial note. Subjective: The patient was seen face to face in the evening of 07/28/2021 with Ann KRAMER, discussed and reviewed the chart. The patient slept 5-1/2 hours previous night. She remains confused, but otherwise not aggressive, fairly quiet, withdrawn. Review of Systems: Ambulation impaired. No CV, , pulmonary, eye, ENT system symptoms on review. Mental Status Exam: The patient is oriented to herself and year. Insight and judgment, recent and remote memory, attention and concentration, fund of knowledge is poor consistent with her diagnoses. Laboratory Data: Reviewed. Impression: Major neurocognitive disorder Alzheimer vascular with delusion, depression, behavioral disturbance. Anxiety disorder, unspecified. Impulse control disorder, unspecified. Plan: No change from initial note. Assessment: Vital Signs/I&O: Vital Signs Date Time Temp Pulse Resp B/P (MAP) Pulse Ox O2 Delivery O2 Flow Rate FiO2 07/31/21 05:42 98.6 68 18 147/67 (93) 95 Room Air I & O 07/30/21 07/30/21 07/31/21 15:00 23:00 07:00 Intake Total 720 ml 840 ml Balance 720 ml 840 ml Current Medications: Meds: Current Medications Medications (Trade) Dose Ordered Sig/Ruth Route PRN Reason Start Time Stop Time Status Last Admin Dose Admin Acetaminophen (Tylenol) 650 mg PRN Q6HRS PRN PO pain or fever 07/26/21 07:45 Aspirin (Aspirin Chewable) 81 mg DAILY PO 07/26/21 09:00 07/30/21 08:36 Citalopram Hydrobromide (CeleXA) 20 mg DAILY PO 07/26/21 09:00 07/27/21 10:11 DC 07/27/21 08:56 Donepezil HCl (Aricept) 10 mg QHS PO 07/26/21 21:00 07/30/21 20:54 Gabapentin (Neurontin) 600 mg HS PO 07/26/21 21:00 07/30/21 20:54 Levothyroxine Sodium (Synthroid) 50 mcg DAILY06 PO 07/26/21 08:00 07/31/21 05:20 Pantoprazole Sodium (Protonix) 40 mg DAILYAC PO 07/26/21 08:00 07/30/21 07:30 Quetiapine Fumarate (SEROquel) 12.5 mg PRN Q4HRS PRN PO ANXIETY / AGITATION 07/26/21 07:45 Non-Formulary Medication ([TwoCal HN 2.0 liq] ) 60 ml BID PO 07/26/21 09:00 07/26/21 08:01 DC Acetaminophen (Tylenol) 650 mg PRN Q6HRS PRN PO MILD PAIN / TEMP > 100.3'F 07/26/21 08:15 07/26/21 08:33 DC Multi-Ingredient Ointment (Analgesic [place]) 1 judith PRN QID PRN TP MUSCLE PAIN 07/26/21 08:15 Al Hydroxide/Mg Hydroxide (Mylanta Plus Xs) 15 ml PRN AFTMEALHC PRN PO DYSPEPSIA 07/26/21 08:15 Magnesium Hydroxide (Milk Of Magnesia) 2,400 mg PRN QHS PRN PO CONSTIPATION 07/26/21 08:15 Sertraline HCl (Zoloft) 50 mg DAILY PO 07/28/21 09:00 07/30/21 08:37 Vitamin D (Vitamin D3) 50,000 unit WEEKLY PO 07/30/21 16:30 07/30/21 20:54 Current Medications Medications (Trade) Dose Ordered Sig/Ruth Route PRN Reason Start Time Stop Time Status Last Admin Dose Admin Vitamin D (Vitamin D3) 50,000 unit WEEKLY PO 07/30/21 16:30 07/30/21 20:54 I have reviewed the current psychotropics carefully including drug interactions. Risk benefit ratio favors no change other than as noted in my dictated progress note. Diagnosis: Problems: (1) Major neurocognitive disorder (2) Impulse control disorder, unspecified (3) Anxiety disorder, unspecified (4) Dementia, vascular, with depression (5) Dementia, vascular, with delusions (6) Dementia in Alzheimer's disease with depression (7) Dementia in Alzheimer's disease with delusions (8) Dementia of the Alzheimer's type with early onset with behavioral disturbance EVANS KWON MD Jul 31, 2021 06:44
--- NOTE | 2021-07-31 06:56 | PDOC ---
Exam Note: Ignacio Note: This note is a late entry for 07/29/2021 covers elements not covered in my initial note. Subjective: The patient was seen face to face in the evening of 07/29/2021 with Ann KRAMER, discussed and reviewed the chart. The patient slept 6-3/4 hours previous night. She remains confused. She believes she works here. 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 Review of Systems: Ambulation impaired. No CV, , pulmonary, eye, ENT system symptoms on review. Reliability poor. Mental Status Exam: The patient is oriented to herself and year. Insight and judgment, recent and remote memory, attention and concentration, fund of knowledge is poor consistent with her diagnoses. She is delusional. Laboratory Data: Reviewed. Impression: Major neurocognitive disorder Alzheimer vascular with delusion, depression, behavioral disturbance. Anxiety disorder, unspecified. Impulse co ntrol disorder, unspecified. Plan: No change from initial note. Assessment: Vital Signs/I&O: Vital Signs Date Time Temp Pulse Resp B/P (MAP) Pulse Ox O2 Delivery O2 Flow Rate FiO2 07/31/21 05:42 98.6 68 18 147/67 (93) 95 Room Air I & O 07/30/21 07/30/21 07/31/21 15:00 23:00 07:00 Intake Total 720 ml 840 ml Balance 720 ml 840 ml Current Medications: Meds: Current Medications Medications (Trade) Dose Ordered Sig/Ruth Route PRN Reason Start Time Stop Time Status Last Admin Dose Admin Acetaminophen (Tylenol) 650 mg PRN Q6HRS PRN PO pain or fever 07/26/21 07:45 Aspirin (Aspirin Chewable) 81 mg DAILY PO 07/26/21 09:00 07/30/21 08:36 Citalopram Hydrobromide (CeleXA) 20 mg DAILY PO 07/26/21 09:00 07/27/21 10:11 DC 07/27/21 08:56 Donepezil HCl (Aricept) 10 mg QHS PO 07/26/21 21:00 07/30/21 20:54 Gabapentin (Neurontin) 600 mg HS PO 07/26/21 21:00 07/30/21 20:54 Levothyroxine Sodium (Synthroid) 50 mcg DAILY06 PO 07/26/21 08:00 07/31/21 05:20 Pantoprazole Sodium (Protonix) 40 mg DAILYAC PO 07/26/21 08:00 07/30/21 07:30 Quetiapine Fumarate (SEROquel) 12.5 mg PRN Q4HRS PRN PO ANXIETY / AGITATION 07/26/21 07:45 Non-Formulary Medication ([TwoCal HN 2.0 liq] ) 60 ml BID PO 07/26/21 09:00 07/26/21 08:01 DC Acetaminophen (Tylenol) 650 mg PRN Q6HRS PRN PO MILD PAIN / TEMP > 100.3'F 07/26/21 08:15 07/26/21 08:33 DC Multi-Ingredient Ointment (Analgesic [place]) 1 judith PRN QID PRN TP MUSCLE PAIN 07/26/21 08:15 Al Hydroxide/Mg Hydroxide (Mylanta Plus Xs) 15 ml PRN AFTMEALHC PRN PO DYSPEPSIA 07/26/21 08:15 Magnesium Hydroxide (Milk Of Magnesia) 2,400 mg PRN QHS PRN PO CONSTIPATION 07/26/21 08:15 Sertraline HCl (Zoloft) 50 mg DAILY PO 07/28/21 09:00 07/30/21 08:37 Vitamin D (Vitamin D3) 50,000 unit WEEKLY PO 07/30/21 16:30 07/30/21 20:54 Current Medications Medications (Trade) Dose Ordered Sig/Ruth Route PRN Reason Start Time Stop Time Status Last Admin Dose Admin Vitamin D (Vitamin D3) 50,000 unit WEEKLY PO 07/30/21 16:30 07/30/21 20:54 I have reviewed the current psychotropics carefully including drug interactions. Risk benefit ratio favors no change other than as noted in my dictated progress note. Diagnosis: Problems: (1) Major neurocognitive disorder (2) Impulse control disorder, unspecified (3) Anxiety disorder, unspecified (4) Dementia, vascular, with depression (5) Dementia, vascular, with delusions (6) Dementia in Alzheimer's disease with depression (7) Dementia in Alzheimer's disease with delusions (8) Dementia of the Alzheimer's type with early onset with behavioral disturbance EVANS KWON MD Jul 31, 2021 06:56
[2021-07-31] MEDS: SERTRALINE 50 MG TABLET. PO SCH (08:30)
[2021-07-31] MEDS: ASPIRIN CHEWABLE 81 MG TABLET. PO SCH (08:30)
[2021-07-31] MEDS: PANTOPRAZOLE 40 MG TABLET. PO SCH (08:30)
--- NOTE | 2021-07-31 10:43 | NUR ---
RN DAY SHIFT NOTE: PT PRESENTS WITH A PLEASANT MOOD/AFFECT. PT WILL SMILE AND ENGAGE WHEN SPOKEN TO. PT CAN STATE HER BIRTHDAY AND NAME WHEN ASKED. PT WAS MEDICATION COMPLIANT. PT IS HAS GENERAL CONFUSION. PT VITALS ARE WNL. PT SLEPT 3.5 HOURS LAST NIGHT. PT IS LOW-BURK ON THE UNIT. PT IS NOTED TO SPEND HER TIME SITTING COMFORTABLE AND CALMLY IN THE HALLWAY. PT FOLLOWS RULES/ROUTINES ON THE UNIT. PT CONTINUES TO HAVE A GOOD APPETITE. WILL CONTINUE TO MONITOR.
--- NOTE | 2021-07-31 13:55 | NUR ---
pt is confused and exit seeking, in a calm manner. pt believes she is at work and it is time for her to go home. pt is redirected and able to remain calm.
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
[2021-07-31 16:31] VITALS: BP 131/75
[2021-07-31] MEDS: GABAPENTIN 300 MG CAPSULE. PO SCH (20:26)
[2021-07-31] MEDS: DONEPEZIL HCL 10 MG TABLET PO SCH (20:26)
--- NOTE | 2021-07-31 22:05 | PDOC ---
Exam Note: Ignacio Note: Please also refer to the separate dictated note~for this date of service dictated separately.~Patient seen individually. Discussed the patient with Nursing staff reviewed the chart.~Reviewed interim history and current functioning. Reviewed vital signs,~Labs/ Radiology~and current medications noted below. Continue current treatment with the changes noted in the dictated addendum note Assessment: Vital Signs/I&O: Vital Signs Date Time Temp Pulse Resp B/P (MAP) Pulse Ox O2 Delivery O2 Flow Rate FiO2 07/31/21 16:31 97.3 86 20 131/75 (93) 96 07/31/21 05:42 Room Air I & O 07/30/21 07/30/21 07/31/21 15:00 23:00 07:00 Intake Total 720 ml 840 ml Balance 720 ml 840 ml Current Medications: Meds: Current Medications Medications (Trade) Dose Ordered Sig/Ruth Route PRN Reason Start Time Stop Time Status Last Admin Dose Admin Acetaminophen (Tylenol) 650 mg PRN Q6HRS PRN PO pain or fever 07/26/21 07:45 Aspirin (Aspirin Chewable) 81 mg DAILY PO 07/26/21 09:00 07/31/21 08:30 Citalopram Hydrobromide (CeleXA) 20 mg DAILY PO 07/26/21 09:00 07/27/21 10:11 DC 07/27/21 08:56 Donepezil HCl (Aricept) 10 mg QHS PO 07/26/21 21:00 07/31/21 20:26 Gabapentin (Neurontin) 600 mg HS PO 07/26/21 21:00 07/31/21 20:26 Levothyroxine Sodium (Synthroid) 50 mcg DAILY06 PO 07/26/21 08:00 07/31/21 05:20 Pantoprazole Sodium (Protonix) 40 mg DAILYAC PO 07/26/21 08:00 07/31/21 08:30 Quetiapine Fumarate (SEROquel) 12.5 mg PRN Q4HRS PRN PO ANXIETY / AGITATION 07/26/21 07:45 Non-Formulary Medication ([TwoCal HN 2.0 liq] ) 60 ml BID PO 07/26/21 09:00 07/26/21 08:01 DC Acetaminophen (Tylenol) 650 mg PRN Q6HRS PRN PO MILD PAIN / TEMP > 100.3'F 07/26/21 08:15 07/26/21 08:33 DC Multi-Ingredient Ointment (Analgesic [place]) 1 judith PRN QID PRN TP MUSCLE PAIN 07/26/21 08:15 Al Hydroxide/Mg Hydroxide (Mylanta Plus Xs) 15 ml PRN AFTMEALHC PRN PO DYSPEPSIA 07/26/21 08:15 Magnesium Hydroxide (Milk Of Magnesia) 2,400 mg PRN QHS PRN PO CONSTIPATION 07/26/21 08:15 Sertraline HCl (Zoloft) 50 mg DAILY PO 07/28/21 09:00 07/31/21 08:30 Vitamin D (Vitamin D3) 50,000 unit WEEKLY PO 07/30/21 16:30 07/30/21 20:54 I have reviewed the current psychotropics carefully including drug interactions. Risk benefit ratio favors no change other than as noted in my dictated progress note. 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
--- NOTE | 2021-07-31 22:48 | NUR ---
Pt walking in hallway when approached. Pt calm, confused, disorganized, and delusional. Pt wants to call home to let her family know that she won't be home tonight. I assured her that her family knows that she is here and will be staying tonight. Pt cooperative with assessment and compliant with medications administered whole. No agitation or aggression noted thus far this shift.
[2021-08-01] MEDS: LEVOTHYROXINE 50 MCG TABLET PO SCH (05:09)
[2021-08-01 05:52] VITALS: BP 108/66
[2021-08-01] MEDS: ASPIRIN CHEWABLE 81 MG TABLET. PO SCH (08:09)
[2021-08-01] MEDS: SERTRALINE 50 MG TABLET. PO SCH (08:09)
[2021-08-01] MEDS: PANTOPRAZOLE 40 MG TABLET. PO SCH (08:09)
--- NOTE | 2021-08-01 10:43 | NUR ---
RN DAY SHIFT NOTE: PT PRESENTS WITH A PLEASANT MOOD/AFFECT. PT IS ABLE TO STATE FULL NAME AND BIRTHDAY. PT IS MEDICATION COMPLIANT. PT IS LOW-BURK ON THE UNIT. PT IS NOTED TO BE RESTING IN HER BEDROOM. PT IS APPROACHABLE BY STAFF. PT WILL ENGAGE SOCIALLY WHEN SPOKEN TOO. PT SLEPT 6.5 HOURS LAST NIGHT. PT'S VITALS ARE WNL. PT FOLLOWS RULES AND ROUTINES ON THE UNIT. WILL CONTINUE TO MONITOR.
--- NOTE | 2021-08-01 12:28 | TX PLAN ---
Interdisciplinary Tx Plan Admission Information Jul 26, 2021 at 07:35 Legal Status (on Admission): Voluntary DPOA/Guardian Name: Lisa Carrillo Contact Other Contact Name: Cyndi Other Contact Verified Code Status: Full Code Allergies: Coded Allergies: meperidine (Verified Allergy, Unknown, 07/25/21) olanzapine (Verified Allergy, Unknown, 07/25/21) trazodone (Verified Allergy, Unknown, 07/25/21) zolpidem (Verified Allergy, Unknown, 07/25/21) Diagnoses Primary Diagnosis: Major Neurocognitive D/O, Vascular Alzheimers with delusions, depression and BD. Problem in Patient's Words: Concerns that she is just not in the right environment Additional Admission Comments: According to the intake pt told her dtr she wants out of this world, threw a table, combative towards her and a peer, agitated, verbally aggressive, cursing, exit seeking, throwing food Problems Active Problems: Delusional at time agitated Inactive Problems: Medication compliant No physical or verbal aggression Pt Strengths/Limitations Ability for [place]: Poor Cognitive Functioning/Ability: Fair Communication Skills/Ability: Fair Financial Resources: Fair Insight/Judgement: Poor Intellectual Ability: Fair Physical Health: Poor Social Skills: Fair Stability in Family: Fair Stability in School/Work: Poor Verbal Skills: Fair Discharge Criteria Discharge Criteria: No need for close observ., Adequate arrangements @DC, Improved behavior, Improved mood/thought Preliminary Discharge Plan Preliminary DC Plan: Current Living Arrange., Other Special Precautions Fall Risk: Low Initial D/C Plan May return to [facility] once stable with extra services Identified Discharge Needs: Potential to move to [place] with dtr. Currently Utilized Resources Currently Utilized Resources/P: Primary Care Physician Referrals Community Resources: Community services for psychiatry and case management Identified Problems/Hx/Goals Objectives/Short-Term Goals Short Term Goals: Dec. Aggression, Dec. Outbursts, Medication Stabilization, Promote Coping Skill Short Term Goals in Patient's: N/A Interventions/Frequency Staff Interventions/Frequency&: Psychiatrist to assess pt at least 3x per week for medication management. Social Work to assess pt at least 2x per week to identify barriers to care and finalize discharge plans. Nursing to assess medication effects, behavior modification and complete 15 minute checks daily Encourage participation in group activities (if applicable) or 1:1 engagement based off activity dept goals. 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 Education: Pt graduated high school (12th grade). 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 Community Follow-up Primary Care Physician Psychiatry and Case management referral. Community Provider/Family Inpu: Pt dtr is hopeful to have her move to [place] if possible. Family dynamics are very hostile as pt dtrs and pt brother has equal rights as DPOA. Treatment Plan Explained Patient/Roll Grinder had this treatment plan explained to him/her as indicated by the signature below and has been given the opportunity to ask questions and make suggestions: Date: Patient/Roll Grinder Signature: Patient/Roll Grinder Decline: No (Pt dtr is active in pt care.) ASHLEIGH DAVIS Aug 01, 2021 12:28
[2021-08-01 15:34] VITALS: BP 100/65
[2021-08-01] MEDS: DONEPEZIL HCL 10 MG TABLET PO SCH (20:16)
[2021-08-01] MEDS: GABAPENTIN 300 MG CAPSULE. PO SCH (20:16)
--- NOTE | 2021-08-01 22:01 | PDOC ---
Exam Note: Ignacio Note: Please also refer to the separate dictated note~for this date of service dictated separately.~Patient seen individually. Discussed the patient with Nursing staff reviewed the chart.~Reviewed interim history and current functioning. Reviewed vital signs,~Labs/ Radiology~and current medications noted below. Continue current treatment with the changes noted in the dictated addendum note Assessment: Vital Signs/I&O: Vital Signs Date Time Temp Pulse Resp B/P (MAP) Pulse Ox O2 Delivery O2 Flow Rate FiO2 08/01/21 15:34 97.5 78 16 100/65 (77) 95 07/31/21 05:42 Room Air I & O 07/31/21 07/31/21 08/01/21 15:00 23:00 07:00 Intake Total 1080 ml 360 ml Balance 1080 ml 360 ml Labs: Laboratory Tests Test 08/01/21 05:28 SARS-CoV-2 (PCR) Negative (NEGATIVE) Current Medications: Meds: Laboratory Tests Test 08/01/21 05:28 Coronavirus (COVID-19)(PCR) Negative Current Medications Medications (Trade) Dose Ordered Sig/Ruth Route PRN Reason Start Time Stop Time Status Last Admin Dose Admin Acetaminophen (Tylenol) 650 mg PRN Q6HRS PRN PO pain or fever 07/26/21 07:45 Aspirin (Aspirin Chewable) 81 mg DAILY PO 07/26/21 09:00 08/01/21 08:09 Citalopram Hydrobromide (CeleXA) 20 mg DAILY PO 07/26/21 09:00 07/27/21 10:11 DC 07/27/21 08:56 Donepezil HCl (Aricept) 10 mg QHS PO 07/26/21 21:00 08/01/21 20:16 Gabapentin (Neurontin) 600 mg HS PO 07/26/21 21:00 08/01/21 20:16 Levothyroxine Sodium (Synthroid) 50 mcg DAILY06 PO 07/26/21 08:00 08/01/21 05:09 Pantoprazole Sodium (Protonix) 40 mg DAILYAC PO 07/26/21 08:00 08/01/21 08:09 Quetiapine Fumarate (SEROquel) 12.5 mg PRN Q4HRS PRN PO ANXIETY / AGITATION 07/26/21 07:45 Non-Formulary Medication ([TwoCal HN 2.0 liq] ) 60 ml BID PO 07/26/21 09:00 07/26/21 08:01 DC Acetaminophen (Tylenol) 650 mg PRN Q6HRS PRN PO MILD PAIN / TEMP > 100.3'F 07/26/21 08:15 07/26/21 08:33 DC Multi-Ingredient Ointment (Analgesic [place]) 1 judith PRN QID PRN TP MUSCLE PAIN 07/26/21 08:15 Al Hydroxide/Mg Hydroxide (Mylanta Plus Xs) 15 ml PRN AFTMEALHC PRN PO DYSPEPSIA 07/26/21 08:15 Magnesium Hydroxide (Milk Of Magnesia) 2,400 mg PRN QHS PRN PO CONSTIPATION 07/26/21 08:15 Sertraline HCl (Zoloft) 50 mg DAILY PO 07/28/21 09:00 08/01/21 08:09 Vitamin D (Vitamin D3) 50,000 unit WEEKLY PO 07/30/21 16:30 07/30/21 20:54 I have reviewed the current psychotropics carefully including drug interactions. Risk benefit ratio favors no change other than as noted in my dictated progress note. 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
--- NOTE | 2021-08-02 00:03 | NUR ---
Nursing Note Pt pleasant and calm, med compliant and cooperative. Denies complaints. In [place] social with peers.
[2021-08-02] MEDS: LEVOTHYROXINE 50 MCG TABLET PO SCH (06:18)
[2021-08-02 06:19] VITALS: BP 114/72
[2021-08-02] MEDS: ASPIRIN CHEWABLE 81 MG TABLET. PO SCH (08:25)
[2021-08-02] MEDS: PANTOPRAZOLE 40 MG TABLET. PO SCH (08:25)
[2021-08-02] MEDS: SERTRALINE 50 MG TABLET. PO SCH (08:25)
--- NOTE | 2021-08-02 09:11 | PDOC ---
Exam Note: Ignacio Note: This note is a late entry for 07/30/2021 covers elements not covered in my initial note. Subjective: The patient was seen face to face in the evening of 07/30/2021 with Tatyana KRAMER, discussed and reviewed the chart. The patient slept 7-3/4 hours previous night. She has been little more social, interactive, less delusional about her being in hospital. Review of Systems: Ambulation impaired. No CV, , pulmonary, eye, ENT system symptoms on review. Mental Status Exam: The patient is oriented to herself. Insight and judgment, recent and remote memory, attention and concentration, fund of knowledge is poor consistent with her diagnoses. Laboratory Data: Reviewed. Impression: Major neurocognitive disorder Alzheimer vascular with delusion, depression, behavioral disturbance. Anxiety disorder, unspecified. Impulse control disorder, unspecified. Plan: No change from initial note. Assessment: Vital Signs/I&O: Vital Signs Date Time Temp Pulse Resp B/P (MAP) Pulse Ox O2 Delivery O2 Flow Rate FiO2 08/02/21 06:19 96.9 68 16 114/72 (86) 96 07/31/21 05:42 Room Air I & O 08/01/21 08/01/21 08/02/21 15:00 23:00 07:00 Intake Total 720 ml 480 ml Balance 720 ml 480 ml Current Medications: Meds: Current Medications Medications (Trade) Dose Ordered Sig/Ruth Route PRN Reason Start Time Stop Time Status Last Admin Dose Admin Acetaminophen (Tylenol) 650 mg PRN Q6HRS PRN PO pain or fever 07/26/21 07:45 Aspirin (Aspirin Chewable) 81 mg DAILY PO 07/26/21 09:00 08/02/21 08:25 Citalopram Hydrobromide (CeleXA) 20 mg DAILY PO 07/26/21 09:00 07/27/21 10:11 DC 07/27/21 08:56 Donepezil HCl (Aricept) 10 mg QHS PO 07/26/21 21:00 08/01/21 20:16 Gabapentin (Neurontin) 600 mg HS PO 07/26/21 21:00 08/01/21 20:16 Levothyroxine Sodium (Synthroid) 50 mcg DAILY06 PO 07/26/21 08:00 08/02/21 06:18 Pantoprazole Sodium (Protonix) 40 mg DAILYAC PO 07/26/21 08:00 08/02/21 08:25 Quetiapine Fumarate (SEROquel) 12.5 mg PRN Q4HRS PRN PO ANXIETY / AGITATION 07/26/21 07:45 Non-Formulary Medication ([TwoCal HN 2.0 liq] ) 60 ml BID PO 07/26/21 09:00 07/26/21 08:01 DC Acetaminophen (Tylenol) 650 mg PRN Q6HRS PRN PO MILD PAIN / TEMP > 100.3'F 07/26/21 08:15 07/26/21 08:33 DC Multi-Ingredient Ointment (Analgesic [place]) 1 judith PRN QID PRN TP MUSCLE PAIN 07/26/21 08:15 Al Hydroxide/Mg Hydroxide (Mylanta Plus Xs) 15 ml PRN AFTMEALHC PRN PO DYSPEPSIA 07/26/21 08:15 Magnesium Hydroxide (Milk Of Magnesia) 2,400 mg PRN QHS PRN PO CONSTIPATION 07/26/21 08:15 Sertraline HCl (Zoloft) 50 mg DAILY PO 07/28/21 09:00 08/02/21 08:25 Vitamin D (Vitamin D3) 50,000 unit WEEKLY PO 07/30/21 16:30 07/30/21 20:54 I have reviewed the current psychotropics carefully including drug interactions. Risk benefit ratio favors no change other than as noted in my dictated progress note. 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
--- NOTE | 2021-08-02 09:39 | PDOC ---
Exam Note: Ignacio Note: This note is a late entry for 07/31/2021 covers elements not covered in my initial note. Subjective: The patient was seen face to face in the evening of 07/31/2021 with Geovanna KRAMER, discussed and reviewed the chart. The patient slept 3-1/2 hours previous night. Overall she had been convinced that her was in the hospital and nursing staff had her talk to her and he is quite well and living at home. Patient seems to forget this. Review of Systems: Ambulation impaired. No CV, , pulmonary, eye, ENT system symptoms on review. Reliability poor. Mental Status Exam: The patient is oriented to herself. Insight and judgment, recent and remote memory, attention and concentration, fund of knowledge is poor consistent with her diagnoses. Laboratory Data: Reviewed. Impression: Major neurocognitive disorder Alzheimer vascular with delusion, depression, behavioral disturbance. Anxiety disorder, unspecified. Impulse control disorder, unspecified. Plan: No change from initial note. Assessment: Vital Signs/I&O: Vital Signs Date Time Temp Pulse Resp B/P (MAP) Pulse Ox O2 Delivery O2 Flow Rate FiO2 08/02/21 06:19 96.9 68 16 114/72 (86) 96 07/31/21 05:42 Room Air I & O 08/01/21 08/01/21 08/02/21 15:00 23:00 07:00 Intake Total 720 ml 480 ml Balance 720 ml 480 ml Current Medications: Meds: Current Medications Medications (Trade) Dose Ordered Sig/Ruth Route PRN Reason Start Time Stop Time Status Last Admin Dose Admin Acetaminophen (Tylenol) 650 mg PRN Q6HRS PRN PO pain or fever 07/26/21 07:45 Aspirin (Aspirin Chewable) 81 mg DAILY PO 07/26/21 09:00 08/02/21 08:25 Citalopram Hydrobromide (CeleXA) 20 mg DAILY PO 07/26/21 09:00 07/27/21 10:11 DC 07/27/21 08:56 Donepezil HCl (Aricept) 10 mg QHS PO 07/26/21 21:00 08/01/21 20:16 Gabapentin (Neurontin) 600 mg HS PO 07/26/21 21:00 08/01/21 20:16 Levothyroxine Sodium (Synthroid) 50 mcg DAILY06 PO 07/26/21 08:00 08/02/21 06:18 Pantoprazole Sodium (Protonix) 40 mg DAILYAC PO 07/26/21 08:00 08/02/21 08:25 Quetiapine Fumarate (SEROquel) 12.5 mg PRN Q4HRS PRN PO ANXIETY / AGITATION 07/26/21 07:45 Non-Formulary Medication ([TwoCal HN 2.0 liq] ) 60 ml BID PO 07/26/21 09:00 07/26/21 08:01 DC Acetaminophen (Tylenol) 650 mg PRN Q6HRS PRN PO MILD PAIN / TEMP > 100.3'F 07/26/21 08:15 07/26/21 08:33 DC Multi-Ingredient Ointment (Analgesic [place]) 1 judith PRN QID PRN TP MUSCLE PAIN 07/26/21 08:15 Al Hydroxide/Mg Hydroxide (Mylanta Plus Xs) 15 ml PRN AFTMEALHC PRN PO DYSPEPSIA 07/26/21 08:15 Magnesium Hydroxide (Milk Of Magnesia) 2,400 mg PRN QHS PRN PO CONSTIPATION 07/26/21 08:15 Sertraline HCl (Zoloft) 50 mg DAILY PO 07/28/21 09:00 08/02/21 08:25 Vitamin D (Vitamin D3) 50,000 unit WEEKLY PO 07/30/21 16:30 07/30/21 20:54 I have reviewed the current psychotropics carefully including drug interactions. Risk benefit ratio favors no change other than as noted in my dictated progress note. 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
--- NOTE | 2021-08-02 10:39 | PDOC ---
Exam Note: Ignacio Note: This note is a late entry for 08/01/2021 covers elements not covered in my initial note. Subjective: The patient was seen face to face in the evening of 08/01/2021 with Geovanna KRAMER, discussed and reviewed the chart. The patient slept 6-1/2 hours previous night. She is COVID negative, otherwise, cooperative, confused. Review of Systems: Ambulation impaired. No CV, , pulmonary, eye, ENT system symptoms on review. Reliability poor. Mental Status Exam: The patient is oriented to herself. Insight and judgment, recent and remote memory, attention and concentration, fund of knowledge is poor consistent with her diagnoses. Laboratory Data: Reviewed. Impression: Major neurocognitive disorder Alzheimer vascular with delusion, depression, behavioral disturbance. Anxiety disorder, unspecified. Impulse control disorder, unspecified. Plan: No change from initial note. Assessment: Vital Signs/I&O: Vital Signs Date Time Temp Pulse Resp B/P (MAP) Pulse Ox O2 Delivery O2 Flow Rate FiO2 08/02/21 06:19 96.9 68 16 114/72 (86) 96 07/31/21 05:42 Room Air I & O 08/01/21 08/01/21 08/02/21 15:00 23:00 07:00 Intake Total 720 ml 480 ml Balance 720 ml 480 ml Current Medications: Meds: Current Medications Medications (Trade) Dose Ordered Sig/Ruth Route PRN Reason Start Time Stop Time Status Last Admin Dose Admin Acetaminophen (Tylenol) 650 mg PRN Q6HRS PRN PO pain or fever 07/26/21 07:45 Aspirin (Aspirin Chewable) 81 mg DAILY PO 07/26/21 09:00 08/02/21 08:25 Citalopram Hydrobromide (CeleXA) 20 mg DAILY PO 07/26/21 09:00 07/27/21 10:11 DC 07/27/21 08:56 Donepezil HCl (Aricept) 10 mg QHS PO 07/26/21 21:00 08/01/21 20:16 Gabapentin (Neurontin) 600 mg HS PO 07/26/21 21:00 08/01/21 20:16 Levothyroxine Sodium (Synthroid) 50 mcg DAILY06 PO 07/26/21 08:00 08/02/21 06:18 Pantoprazole Sodium (Protonix) 40 mg DAILYAC PO 07/26/21 08:00 08/02/21 08:25 Quetiapine Fumarate (SEROquel) 12.5 mg PRN Q4HRS PRN PO ANXIETY / AGITATION 07/26/21 07:45 Non-Formulary Medication ([TwoCal HN 2.0 liq] ) 60 ml BID PO 07/26/21 09:00 07/26/21 08:01 DC Acetaminophen (Tylenol) 650 mg PRN Q6HRS PRN PO MILD PAIN / TEMP > 100.3'F 07/26/21 08:15 07/26/21 08:33 DC Multi-Ingredient Ointment (Analgesic [place]) 1 judith PRN QID PRN TP MUSCLE PAIN 07/26/21 08:15 Al Hydroxide/Mg Hydroxide (Mylanta Plus Xs) 15 ml PRN AFTMEALHC PRN PO DYSPEPSIA 07/26/21 08:15 Magnesium Hydroxide (Milk Of Magnesia) 2,400 mg PRN QHS PRN PO CONSTIPATION 07/26/21 08:15 Sertraline HCl (Zoloft) 50 mg DAILY PO 07/28/21 09:00 08/02/21 08:25 Vitamin D (Vitamin D3) 50,000 unit WEEKLY PO 07/30/21 16:30 07/30/21 20:54 I have reviewed the current psychotropics carefully including drug interactions. Risk benefit ratio favors no change other than as noted in my dictated progress note. 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
--- NOTE | 2021-08-02 10:58 | NUR ---
Pt has been very quiet and withdrawn this morning. She stays mostly in her room however when she does interact with others it has been appropriate. Absent of SI/HI/VH/AH/delusions/pain at this time. Pt absent of verbal aggression towards staff. She is compliant with whole medications and has no complaints/concerns at this time. Plan of care continues, will pass to next shift.
[2021-08-02 15:45] VITALS: BP 144/79
[2021-08-02] MEDS: DONEPEZIL HCL 10 MG TABLET PO SCH (19:51)
[2021-08-02] MEDS: GABAPENTIN 300 MG CAPSULE. PO SCH (19:52)
--- NOTE | 2021-08-02 21:58 | PDOC ---
Exam Note: Ignacio Note: Please also refer to the separate dictated note~for this date of service dictated separately.~Patient seen individually. Discussed the patient with Nursing staff reviewed the chart.~Reviewed interim history and current functioning. Reviewed vital signs,~Labs/ Radiology~and current medications noted below. Continue current treatment with the changes noted in the dictated addendum note Assessment: Vital Signs/I&O: Vital Signs Date Time Temp Pulse Resp B/P (MAP) Pulse Ox O2 Delivery O2 Flow Rate FiO2 08/02/21 15:45 97.6 80 18 144/79 (100) 95 07/31/21 05:42 Room Air I & O 08/01/21 08/01/21 08/02/21 15:00 23:00 07:00 Intake Total 720 ml 480 ml Balance 720 ml 480 ml Current Medications: Meds: Current Medications Medications (Trade) Dose Ordered Sig/Ruth Route PRN Reason Start Time Stop Time Status Last Admin Dose Admin Acetaminophen (Tylenol) 650 mg PRN Q6HRS PRN PO pain or fever 07/26/21 07:45 Aspirin (Aspirin Chewable) 81 mg DAILY PO 07/26/21 09:00 08/02/21 08:25 Citalopram Hydrobromide (CeleXA) 20 mg DAILY PO 07/26/21 09:00 07/27/21 10:11 DC 07/27/21 08:56 Donepezil HCl (Aricept) 10 mg QHS PO 07/26/21 21:00 08/02/21 19:51 Gabapentin (Neurontin) 600 mg HS PO 07/26/21 21:00 08/02/21 19:52 Levothyroxine Sodium (Synthroid) 50 mcg DAILY06 PO 07/26/21 08:00 08/02/21 06:18 Pantoprazole Sodium (Protonix) 40 mg DAILYAC PO 07/26/21 08:00 08/02/21 08:25 Quetiapine Fumarate (SEROquel) 12.5 mg PRN Q4HRS PRN PO ANXIETY / AGITATION 07/26/21 07:45 Non-Formulary Medication ([TwoCal HN 2.0 liq] ) 60 ml BID PO 07/26/21 09:00 07/26/21 08:01 DC Acetaminophen (Tylenol) 650 mg PRN Q6HRS PRN PO MILD PAIN / TEMP > 100.3'F 07/26/21 08:15 07/26/21 08:33 DC Multi-Ingredient Ointment (Analgesic [place]) 1 judith PRN QID PRN TP MUSCLE PAIN 07/26/21 08:15 Al Hydroxide/Mg Hydroxide (Mylanta Plus Xs) 15 ml PRN AFTMEALHC PRN PO DYSPEPSIA 07/26/21 08:15 Magnesium Hydroxide (Milk Of Magnesia) 2,400 mg PRN QHS PRN PO CONSTIPATION 07/26/21 08:15 Sertraline HCl (Zoloft) 50 mg DAILY PO 07/28/21 09:00 08/02/21 08:25 Vitamin D (Vitamin D3) 50,000 unit WEEKLY PO 07/30/21 16:30 07/30/21 20:54 I have reviewed the current psychotropics carefully including drug interactions. Risk benefit ratio favors no change other than as noted in my dictated progress note. 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
[2021-08-03 05:23] VITALS: BP 106/58
[2021-08-03] MEDS: LEVOTHYROXINE 50 MCG TABLET PO SCH (07:25)
[2021-08-03] MEDS: ASPIRIN CHEWABLE 81 MG TABLET. PO SCH (08:11)
[2021-08-03] MEDS: SERTRALINE 50 MG TABLET. PO SCH (08:11)
[2021-08-03] MEDS: PANTOPRAZOLE 40 MG TABLET. PO SCH (08:11)
--- NOTE | 2021-08-03 10:58 | NUR ---
Pt has pleasant mood and affect, when this nurse introduced self she commented that she has a granddaughter named Sonya. Absent of SI/HI/VH/AH/delusions at this time, absent of wandering or exit seeking. She denies pain when asked. She is med compliant. Plan of care continues, will pass to next shift.
--- NOTE | 2021-08-03 11:51 | NUR ---
WEEKLY ACTIVITY THERAPY NOTE Date of Admission: 07/26/21 Date of AT Assessment:07/27 Precipitating behaviors that initiated intake and admission: Pt was agitated, verbally aggressive, irritable, throwing food, cursing exit seeking. Goal aimed: increase stress management and relaxation skills Initial Goal: Pt will participate in at least five individual or group Activity Therapy sessions per week Weekly progress towards goal: did not achieve, / Group participation level: 1 full Weekly highlights: requested magazines on Saturday Behaviors observed: social and pleasant Plan: no change to goal Beneficial adaptations: socialization, magazines
--- NOTE | 2021-08-03 13:44 | NUR ---
Treatment team update: Pt is eating roughly 75-100% of meals and sleeping on average 6.5 hours per night. Pt continues to be disorganized, withdrawn to her room and cooperative with staff directions. Pt does not go out of her way to talk to staff or peers, but is polite when addressed. Pt did exhibit some exit seeking behavior last night; however, was easily redirected. Pt dtr, Lisa, participated in treatment team via phone. Lisa questioned if pt would be okay to complete outings and stage of Dementia. Lisa was very thankful for all staff are doing for pt; [facility] is scheduled for the middle of next week.
--- NOTE | 2021-08-03 13:53 | TX PLAN ---
Interdisciplinary Tx Plan Admission Information Jul 26, 2021 at 07:35 Legal Status (on Admission): Voluntary DPOA/Guardian Name: Lisa Carrillo Contact Other Contact Name: Cyndi Other Contact Verified Code Status: Full Code Allergies: Coded Allergies: meperidine (Verified Allergy, Unknown, 07/25/21) olanzapine (Verified Allergy, Unknown, 07/25/21) trazodone (Verified Allergy, Unknown, 07/25/21) zolpidem (Verified Allergy, Unknown, 07/25/21) Diagnoses Primary Diagnosis: Major Neurocognitive D/O, Vascular Alzheimers with delusions, depression and BD. Problem in Patient's Words: Concerns that she is just not in the right environment Additional Admission Comments: According to the intake pt told her dtr she wants out of this world, threw a table, combative towards her and a peer, agitated, verbally aggressive, cursing, exit seeking, throwing food Problems Active Problems: Delusional at time agitated Inactive Problems: Medication compliant No physical or verbal aggression Pt Strengths/Limitations Ability for [place]: Poor Cognitive Functioning/Ability: Fair Communication Skills/Ability: Fair Financial Resources: Fair Insight/Judgement: Poor Intellectual Ability: Fair Physical Health: Poor Social Skills: Fair Stability in Family: Fair Stability in School/Work: Poor Verbal Skills: Fair Discharge Criteria Discharge Criteria: No need for close observ., Adequate arrangements @DC, Improved behavior, Improved mood/thought Preliminary Discharge Plan Preliminary DC Plan: Current Living Arrange., Other Special Precautions Fall Risk: Low Initial D/C Plan May return to [facility] once stable with extra services Identified Discharge Needs: Potential to move to [place] with dtr. Currently Utilized Resources Currently Utilized Resources/P: Primary Care Physician Referrals Community Resources: Community services for psychiatry and case management Identified Problems/Hx/Goals Objectives/Short-Term Goals Short Term Goals: Dec. Aggression, Dec. Outbursts, Medication Stabilization, Promote Coping Skill Short Term Goals in Patient's: N/A Interventions/Frequency Staff Interventions/Frequency&: Psychiatrist to assess pt at least 3x per week for medication management. Social Work to assess pt at least 2x per week to identify barriers to care and finalize discharge plans. Nursing to assess medication effects, behavior modification and complete 15 minute checks daily Encourage participation in group activities (if applicable) or 1:1 engagement based off activity dept goals. 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 Education: Pt graduated high school (12th grade). 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 Community Follow-up Primary Care Physician Psychiatry and Case management referral. Community Provider/Family Inpu: Pt dtr is hopeful to have her move to [place] if possible. Family dynamics are very hostile as pt dtrs and pt brother has equal rights as DPOA. Treatment Plan Explained Patient/Revenue Analyst had this treatment plan explained to him/her as indicated by the signature below and has been given the opportunity to ask questions and make suggestions: Date: Patient/Revenue Analyst Signature: Status Update Update Pt is eating roughly 75-100% of meals and sleeping on average 6.5 hours per night. Pt continues to be disorganized, withdrawn to her room and cooperative with staff directions. Pt does not go out of her way to talk to staff or peers, but is polite when addressed. Pt did exhibit some exit seeking behavior last night; however, was easily redirected. Pt dtr, Lisa, participated in treatment team via phone. Lisa questioned if pt would be okay to complete outings and stage of Dementia. Lisa was very thankful for all staff are doing for pt; [facility] is scheduled for the middle of next week. ASHLEIGH DAVIS Aug 03, 2021 13:53
[2021-08-03 16:20] VITALS: BP 117/70
[2021-08-03] MEDS: GABAPENTIN 300 MG CAPSULE. PO SCH (21:02)
[2021-08-03] MEDS: DONEPEZIL HCL 10 MG TABLET PO SCH (21:02)
--- NOTE | 2021-08-03 22:00 | PDOC ---
Exam Note: Ignacio Note: Please also refer to the separate dictated note~for this date of service dictated separately.~Patient seen individually. Discussed the patient with Nursing staff reviewed the chart.~Reviewed interim history and current functioning. Reviewed vital signs,~Labs/ Radiology~and current medications noted below. Continue current treatment with the changes noted in the dictated addendum note Assessment: Vital Signs/I&O: Vital Signs Date Time Temp Pulse Resp B/P (MAP) Pulse Ox O2 Delivery O2 Flow Rate FiO2 08/03/21 16:20 97.8 71 20 117/70 (86) 94 07/31/21 05:42 Room Air I & O 08/02/21 08/02/21 08/03/21 15:00 23:00 07:00 Intake Total 840 ml 240 ml Balance 840 ml 240 ml Current Medications: Meds: Current Medications Medications (Trade) Dose Ordered Sig/Ruth Route PRN Reason Start Time Stop Time Status Last Admin Dose Admin Acetaminophen (Tylenol) 650 mg PRN Q6HRS PRN PO PAIN / TEMP > 100.3'F 07/26/21 07:45 Aspirin (Aspirin Chewable) 81 mg DAILY PO 07/26/21 09:00 08/03/21 08:11 Citalopram Hydrobromide (CeleXA) 20 mg DAILY PO 07/26/21 09:00 07/27/21 10:11 DC 07/27/21 08:56 Donepezil HCl (Aricept) 10 mg QHS PO 07/26/21 21:00 08/03/21 21:02 Gabapentin (Neurontin) 600 mg HS PO 07/26/21 21:00 08/03/21 21:02 Levothyroxine Sodium (Synthroid) 50 mcg DAILY06 PO 07/26/21 08:00 08/03/21 07:25 Pantoprazole Sodium (Protonix) 40 mg DAILYAC PO 07/26/21 08:00 08/03/21 08:11 Quetiapine Fumarate (SEROquel) 12.5 mg PRN Q4HRS PRN PO ANXIETY / AGITATION 07/26/21 07:45 Non-Formulary Medication ([TwoCal HN 2.0 liq] ) 60 ml BID PO 07/26/21 09:00 07/26/21 08:01 DC Acetaminophen (Tylenol) 650 mg PRN Q6HRS PRN PO MILD PAIN / TEMP > 100.3'F 07/26/21 08:15 07/26/21 08:33 DC Multi-Ingredient Ointment (Analgesic [place]) 1 judith PRN QID PRN TP MUSCLE PAIN 07/26/21 08:15 Al Hydroxide/Mg Hydroxide (Mylanta Plus Xs) 15 ml PRN AFTMEALHC PRN PO DYSPEPSIA 07/26/21 08:15 Magnesium Hydroxide (Milk Of Magnesia) 2,400 mg PRN QHS PRN PO CONSTIPATION 07/26/21 08:15 Sertraline HCl (Zoloft) 50 mg DAILY PO 07/28/21 09:00 08/03/21 08:11 Vitamin D (Vitamin D3) 50,000 unit WEEKLY PO 07/30/21 16:30 07/30/21 20:54 I have reviewed the current psychotropics carefully including drug interactions. Risk benefit ratio favors no change other than as noted in my dictated progress note. 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
--- NOTE | 2021-08-04 02:53 | NUR ---
Nursing Note The patient was located in her room and in the chair outside her room this shift. The patient was pleasant during interactions with this nurse. The patient was alert to self only. The patient took her medication whole. The patient is currently sleeping in her room.
[2021-08-04] MEDS: LEVOTHYROXINE 50 MCG TABLET PO SCH (05:42)
[2021-08-04 06:08] VITALS: BP 116/69
[2021-08-04] MEDS: PANTOPRAZOLE 40 MG TABLET. PO SCH (08:06)
[2021-08-04] MEDS: ASPIRIN CHEWABLE 81 MG TABLET. PO SCH (08:06)
[2021-08-04] MEDS: SERTRALINE 50 MG TABLET. PO SCH (08:06)
--- NOTE | 2021-08-04 09:51 | PDOC ---
Exam Note: Ignacio Note: This note is a late entry for 08/02/2021 covers elements not covered in my initial note. Subjective: The patient was seen face to face in the evening of 08/02/2021 with Sonya KRAMER, discussed and reviewed the chart. The patient slept 6-1/4 hours previous night. She remains confused, pleasant, less tearful. Review of Systems: Ambulation impaired. No CV, , pulmonary, eye, ENT system symptoms on review. Reliability poor. Mental Status Exam: The patient is oriented to herself. Insight and judgment, recent and remote memory, attention and concentration, fund of knowledge is poor consistent with her diagnoses. Laboratory Data: Reviewed. Impression: Major neurocognitive disorder Alzheimer vascular with delusion, depression, behavioral disturbance. Anxiety disorder, unspecified. Impulse control disorder, unspecified. Plan: No change from initial note. Assessment: Vital Signs/I&O: Vital Signs Date Time Temp Pulse Resp B/P (MAP) Pulse Ox O2 Delivery O2 Flow Rate FiO2 08/04/21 06:08 97.9 87 16 116/69 (85) 91 07/31/21 05:42 Room Air I & O 08/03/21 08/03/21 08/04/21 15:00 23:00 07:00 Intake Total 240 ml 960 ml Balance 240 ml 960 ml Current Medications: Meds: Current Medications Medications (Trade) Dose Ordered Sig/Ruth Route PRN Reason Start Time Stop Time Status Last Admin Dose Admin Acetaminophen (Tylenol) 650 mg PRN Q6HRS PRN PO PAIN / TEMP > 100.3'F 07/26/21 07:45 Aspirin (Aspirin Chewable) 81 mg DAILY PO 07/26/21 09:00 08/04/21 08:06 Citalopram Hydrobromide (CeleXA) 20 mg DAILY PO 07/26/21 09:00 07/27/21 10:11 DC 07/27/21 08:56 Donepezil HCl (Aricept) 10 mg QHS PO 07/26/21 21:00 08/03/21 21:02 Gabapentin (Neurontin) 600 mg HS PO 07/26/21 21:00 08/03/21 21:02 Levothyroxine Sodium (Synthroid) 50 mcg DAILY06 PO 07/26/21 08:00 08/04/21 05:42 Pantoprazole Sodium (Protonix) 40 mg DAILYAC PO 07/26/21 08:00 08/04/21 08:06 Quetiapine Fumarate (SEROquel) 12.5 mg PRN Q4HRS PRN PO ANXIETY / AGITATION 07/26/21 07:45 Non-Formulary Medication ([TwoCal HN 2.0 liq] ) 60 ml BID PO 07/26/21 09:00 07/26/21 08:01 DC Acetaminophen (Tylenol) 650 mg PRN Q6HRS PRN PO MILD PAIN / TEMP > 100.3'F 07/26/21 08:15 07/26/21 08:33 DC Multi-Ingredient Ointment (Analgesic [place]) 1 judith PRN QID PRN TP MUSCLE PAIN 07/26/21 08:15 Al Hydroxide/Mg Hydroxide (Mylanta Plus Xs) 15 ml PRN AFTMEALHC PRN PO DYSPEPSIA 07/26/21 08:15 Magnesium Hydroxide (Milk Of Magnesia) 2,400 mg PRN QHS PRN PO CONSTIPATION 07/26/21 08:15 Sertraline HCl (Zoloft) 50 mg DAILY PO 07/28/21 09:00 08/04/21 08:06 Vitamin D (Vitamin D3) 50,000 unit WEEKLY PO 07/30/21 16:30 07/30/21 20:54 I have reviewed the current psychotropics carefully including drug interactions. Risk benefit ratio favors no change other than as noted in my dictated progress note. 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
--- NOTE | 2021-08-04 10:02 | PDOC ---
Exam Note: Ignacio Note: This note is a late entry for 08/03/2021 covers elements not covered in my initial note. Subjective: The patient was reviewed at treatment team meeting individually in the morning on 08/03/2021 with Maame Rosario, Michelle Hartmann (social worker psychiatric), Sima, activity therapy and Sonya RN, discussed and reviewed the chart. The patient slept 6 hours previous night. Patients daughter Lisa attended the lengthy treatment team meeting. Daughter would like the patient move closer to her in [place] and we addressed this. Review of Systems: Ambulation impaired. No CV, , pulmonary, eye, ENT system symptoms on review. Reliability poor. Mental Status Exam: The patient is oriented to herself. Insight and judgment, recent and remote memory, attention and concentration, fund of knowledge is poor consistent with her diagnoses. Laboratory Data: Reviewed. Impression: Major neurocognitive disorder Alzheimer vascular with delusion, d epression, behavioral disturbance. Anxiety disorder, unspecified. Impulse control disorder, unspecified. Plan: No change from initial note. Assessment: Vital Signs/I&O: Vital Signs Date Time Temp Pulse Resp B/P (MAP) Pulse Ox O2 Delivery O2 Flow Rate FiO2 08/04/21 06:08 97.9 87 16 116/69 (85) 91 07/31/21 05:42 Room Air I & O 08/03/21 08/03/21 08/04/21 15:00 23:00 07:00 Intake Total 240 ml 960 ml Balance 240 ml 960 ml Current Medications: Meds: Current Medications Medications (Trade) Dose Ordered Sig/Ruth Route PRN Reason Start Time Stop Time Status Last Admin Dose Admin Acetaminophen (Tylenol) 650 mg PRN Q6HRS PRN PO PAIN / TEMP > 100.3'F 07/26/21 07:45 Aspirin (Aspirin Chewable) 81 mg DAILY PO 07/26/21 09:00 08/04/21 08:06 Citalopram Hydrobromide (CeleXA) 20 mg DAILY PO 07/26/21 09:00 07/27/21 10:11 DC 07/27/21 08:56 Donepezil HCl (Aricept) 10 mg QHS PO 07/26/21 21:00 08/03/21 21:02 Gabapentin (Neurontin) 600 mg HS PO 07/26/21 21:00 08/03/21 21:02 Levothyroxine Sodium (Synthroid) 50 mcg DAILY06 PO 07/26/21 08:00 08/04/21 05:42 Pantoprazole Sodium (Protonix) 40 mg DAILYAC PO 07/26/21 08:00 08/04/21 08:06 Quetiapine Fumarate (SEROquel) 12.5 mg PRN Q4HRS PRN PO ANXIETY / AGITATION 07/26/21 07:45 Non-Formulary Medication ([TwoCal HN 2.0 liq] ) 60 ml BID PO 07/26/21 09:00 07/26/21 08:01 DC Acetaminophen (Tylenol) 650 mg PRN Q6HRS PRN PO MILD PAIN / TEMP > 100.3'F 07/26/21 08:15 07/26/21 08:33 DC Multi-Ingredient Ointment (Analgesic [place]) 1 judith PRN QID PRN TP MUSCLE PAIN 07/26/21 08:15 Al Hydroxide/Mg Hydroxide (Mylanta Plus Xs) 15 ml PRN AFTMEALHC PRN PO DYSPEPSIA 07/26/21 08:15 Magnesium Hydroxide (Milk Of Magnesia) 2,400 mg PRN QHS PRN PO CONSTIPATION 07/26/21 08:15 Sertraline HCl (Zoloft) 50 mg DAILY PO 07/28/21 09:00 08/04/21 08:06 Vitamin D (Vitamin D3) 50,000 unit WEEKLY PO 07/30/21 16:30 07/30/21 20:54 I have reviewed the current psychotropics carefully including drug interactions. Risk benefit ratio favors no change other than as noted in my dictated progress note. 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
--- NOTE | 2021-08-04 11:04 | NUR ---
Nurse Note Patient alert to self, pleasant and cooperative with staff. Patient quiet unless conversation is initiated with her.Takes all medication whole compliant with all medications. Patient withdrawn to room but comes out for meals and activities. socializes with staff and other patients.
--- NOTE | 2021-08-04 12:58 | NUR ---
BASSEM received call from pt dtr, Lisa, who wanted to discuss discharge plans for pt. Initially the team discussed discharge for the middle of the week. Pt dtr was able to make arrangements to pick pt up on Sunday 08/12; she is driving down from [place] to pick pt up and will plan to get medications filled her in [place] so she can have them for the trip home. SW will have to make sure that scripts for all of pt new medications are available for discharge. BASSEM was asked to email Lisa the address for the hospital as well as instructions on what to do. Lisa gave SW the information of pt primary care who will see her in [place] and will make sure he gets the information for continued care purposes. BASSEM will check in with Lisa next week to confirm and finalize all discharge plans. Lisa did question if her sister has called and BASSEM was not able to confirm if nursing has talk to her but BASSEM has only talked to Lisa as the point of contact for discharge planning.
--- NOTE | 2021-08-04 15:53 | NUR ---
Nurse Notes Patient's brother called to check on sister during the conversation he states " And another thing when it is time for her to leave she is not to leave with Lisa she has to call me first and we have to agree on it" I have conditions and Lorriane need to agree to the conditions or he will not let Vanesa Justin go and fight for guardianship. I have a manufacturers service representative on standby" The nurse replied to the brother sir I am the nurse I understand what you are saying but I care about the patient's well being, this matter must be discussed with social welfare clerk and our fur cutter being there are 3 POA.Brother of patient amarjit he understands but continue to talk about there will be a lawsuit and he will take Lorriane to court. Nurse continue to tell the brother about the patient's day. Brother ended the conversation.
[2021-08-04 16:35] VITALS: BP 116/60
[2021-08-04] MEDS: GABAPENTIN 300 MG CAPSULE. PO SCH (20:21)
[2021-08-04] MEDS: DONEPEZIL HCL 10 MG TABLET PO SCH (20:21)
[2021-08-04] MEDS: QUEtiapine 25 MG TABLET. PO PRN (21:48)
--- NOTE | 2021-08-04 22:09 | PDOC ---
Exam Note: Ignacio Note: Please also refer to the separate dictated note~for this date of service dictated separately.~Patient seen individually. Discussed the patient with Nursing staff reviewed the chart.~Reviewed interim history and current functioning. Reviewed vital signs,~Labs/ Radiology~and current medications noted below. Continue current treatment with the changes noted in the dictated addendum note Assessment: Vital Signs/I&O: Vital Signs Date Time Temp Pulse Resp B/P (MAP) Pulse Ox O2 Delivery O2 Flow Rate FiO2 08/04/21 16:35 97.8 80 18 116/60 (78) 94 07/31/21 05:42 Room Air I & O 08/03/21 08/03/21 08/04/21 15:00 23:00 07:00 Intake Total 240 ml 960 ml Balance 240 ml 960 ml Current Medications: Meds: Current Medications Medications (Trade) Dose Ordered Sig/Ruth Route PRN Reason Start Time Stop Time Status Last Admin Dose Admin Acetaminophen (Tylenol) 650 mg PRN Q6HRS PRN PO PAIN / TEMP > 100.3'F 07/26/21 07:45 Aspirin (Aspirin Chewable) 81 mg DAILY PO 07/26/21 09:00 08/04/21 08:06 Citalopram Hydrobromide (CeleXA) 20 mg DAILY PO 07/26/21 09:00 07/27/21 10:11 DC 07/27/21 08:56 Donepezil HCl (Aricept) 10 mg QHS PO 07/26/21 21:00 08/04/21 20:21 Gabapentin (Neurontin) 600 mg HS PO 07/26/21 21:00 08/04/21 20:21 Levothyroxine Sodium (Synthroid) 50 mcg DAILY06 PO 07/26/21 08:00 08/04/21 05:42 Pantoprazole Sodium (Protonix) 40 mg DAILYAC PO 07/26/21 08:00 08/04/21 08:06 Quetiapine Fumarate (SEROquel) 12.5 mg PRN Q4HRS PRN PO ANXIETY / AGITATION 07/26/21 07:45 08/04/21 21:48 Non-Formulary Medication ([TwoCal HN 2.0 liq] ) 60 ml BID PO 07/26/21 09:00 07/26/21 08:01 DC Acetaminophen (Tylenol) 650 mg PRN Q6HRS PRN PO MILD PAIN / TEMP > 100.3'F 07/26/21 08:15 07/26/21 08:33 DC Multi-Ingredient Ointment (Analgesic [place]) 1 judith PRN QID PRN TP MUSCLE PAIN 07/26/21 08:15 Al Hydroxide/Mg Hydroxide (Mylanta Plus Xs) 15 ml PRN AFTMEALHC PRN PO DYSPEPSIA 07/26/21 08:15 Magnesium Hydroxide (Milk Of Magnesia) 2,400 mg PRN QHS PRN PO CONSTIPATION 07/26/21 08:15 Sertraline HCl (Zoloft) 50 mg DAILY PO 07/28/21 09:00 08/04/21 08:06 Vitamin D (Vitamin D3) 50,000 unit WEEKLY PO 07/30/21 16:30 07/30/21 20:54 I have reviewed the current psychotropics carefully including drug interactions. Risk benefit ratio favors no change other than as noted in my dictated progress note. 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
--- NOTE | 2021-08-04 23:57 | NUR ---
Patient is in the hallway on assumption of care, socializing with a peer. She is in pleasant spirits. Compliant with assessments and medications whole. No agitation. Patient denies any pain or discomfort. She requested something to help her sleep, PRN Seroquel 12.5mg given at 2200, with good effect. She appears to be sleeping comfortably at present time. Will continue to monitor.
[2021-08-05] MEDS: LEVOTHYROXINE 50 MCG TABLET PO SCH (05:32)
[2021-08-05 06:12] VITALS: BP 114/65
[2021-08-05] MEDS: PANTOPRAZOLE 40 MG TABLET. PO SCH (08:33)
[2021-08-05] MEDS: SERTRALINE 50 MG TABLET. PO SCH (08:33)
[2021-08-05] MEDS: ASPIRIN CHEWABLE 81 MG TABLET. PO SCH (08:33)
[2021-08-05 08:34] LABS: BASO # 0.1 x10^3/uL (0.0-0.2); BASO % 1 % (0-3); EOS # 0.2 x10^3/uL (0.0-0.7); EOS % 2 % (0-3); HEMATOCRIT 37.4 % (36.0-47.0); HEMOGLOBIN 12.2 g/dL (12.0-15.5); LYMPH % 30 % (24-48); MEAN CORPUSCULAR HEMOGLOBIN 28 pg (25-35); MEAN CORPUSCULAR HGB CONC 33 g/dL (31-37); MEAN CORPUSCULAR VOLUME 87 fL (79-100); MONO # 0.6 x10^3/uL (0.0-1.1); MONO % 8 % (0-9); NEUT # 3.8 x10^3uL (1.8-7.7); NEUT % 58 % (31-73); PLATELET COUNT 299 x10^3/uL (140-400); RED BLOOD COUNT 4.32 x10^6/uL (3.50-5.40); RED CELL DISTRIBUTION WIDTH 15.3 % (11.5-14.5); WHITE BLOOD COUNT 6.6 x10^3/uL (4.0-11.0)
[2021-08-05 08:49] LABS: ALBUMIN/GLOBULIN RATIO 0.9 (1.0-1.7); CALCIUM 8.6 mg/dL (8.5-10.1); CREATININE 0.6 mg/dL (0.6-1.0); GFR 94.3; POTASSIUM 4.1 mmol/L (3.5-5.1); TOTAL BILIRUBIN 0.3 mg/dL (0.2-1.0); TOTAL PROTEIN 6.5 g/dL (6.4-8.2)
[2021-08-05 15:34] VITALS: BP 103/64
--- NOTE | 2021-08-05 17:23 | NUR ---
Nurse Note: Patient in hallway for medication and assessment, meds taken whole. She is alert to self, pleasant and cooperative with staff. She ambulates independently through halls and room. She has been interactive with peers and staff, as well as sitting in day room through the day. Patient is currently eating dinner. Will continue to monitor.
[2021-08-05] MEDS: DONEPEZIL HCL 10 MG TABLET PO SCH (20:13)
[2021-08-05] MEDS: GABAPENTIN 300 MG CAPSULE. PO SCH (20:13)
--- NOTE | 2021-08-05 22:02 | PDOC ---
Exam Note: Ignacio Note: Please also refer to the separate dictated note~for this date of service dictated separately.~Patient seen individually. Discussed the patient with Nursing staff reviewed the chart.~Reviewed interim history and current functioning. Reviewed vital signs,~Labs/ Radiology~and current medications noted below. Continue current treatment with the changes noted in the dictated addendum note Assessment: Vital Signs/I&O: Vital Signs Date Time Temp Pulse Resp B/P (MAP) Pulse Ox O2 Delivery O2 Flow Rate FiO2 08/05/21 15:34 98.4 84 16 103/64 (77) 93 07/31/21 05:42 Room Air I & O 08/04/21 08/04/21 08/05/21 15:00 23:00 07:00 Intake Total 240 ml 720 ml Output Total 240 ml Balance 0 ml 720 ml Labs: Laboratory Tests Test 08/05/21 08:00 08/05/21 08:05 Sodium Level 142 mmol/L (136-145) Potassium Level 4.1 mmol/L (3.5-5.1) Chloride Level 108 mmol/L (98-107) H Carbon Dioxide Level 26 mmol/L (21-32) Anion Gap 8 (6-14) Blood Urea Nitrogen 17 mg/dL (7-20) Creatinine 0.6 mg/dL (0.6-1.0) Estimated GFR (Cockcroft-Gault) 94.3 BUN/Creatinine Ratio 28 (6-20) H Glucose Level 94 mg/dL (70-99) Calcium Level 8.6 mg/dL (8.5-10.1) Total Bilirubin 0.3 mg/dL (0.2-1.0) Aspartate Amino Transferase (AST) 26 U/L (15-37) Alanine Aminotransferase (ALT) 14 U/L (14-59) Alkaline Phosphatase 86 U/L (46-116) Total Protein 6.5 g/dL (6.4-8.2) Albumin 3.0 g/dL (3.4-5.0) L Albumin/Globulin Ratio 0.9 (1.0-1.7) L White Blood Count 6.6 x10^3/uL (4.0-11.0) Red Blood Count 4.32 x10^6/uL (3.50-5.40) Hemoglobin 12.2 g/dL (12.0-15.5) Hematocrit 37.4 % (36.0-47.0) Mean Corpuscular Volume 87 fL (79-100) Mean Corpuscular Hemoglobin 28 pg (25-35) Mean Corpuscular Hemoglobin Concent 33 g/dL (31-37) Red Cell Distribution Width 15.3 % (11.5-14.5) H Platelet Count 299 x10^3/uL (140-400) Neutrophils (%) (Auto) 58 % (31-73) Lymphocytes (%) (Auto) 30 % (24-48) Monocytes (%) (Auto) 8 % (0-9) Eosinophils (%) (Auto) 2 % (0-3) Basophils (%) (Auto) 1 % (0-3) Neutrophils # (Auto) 3.8 x10^3uL (1.8-7.7) Lymphocytes # (Auto) 2.0 x10^3/uL (1.0-4.8) Monocytes # (Auto) 0.6 x10^3/uL (0.0-1.1) Eosinophils # (Auto) 0.2 x10^3/uL (0.0-0.7) Basophils # (Auto) 0.1 x10^3/uL (0.0-0.2) Current Medications: Meds: Laboratory Tests Test 08/05/21 08:00 08/05/21 08:05 Sodium Level 142 mmol/L Potassium Level 4.1 mmol/L Chloride Level 108 mmol/L Carbon Dioxide Level 26 mmol/L Anion Gap 8 Blood Urea Nitrogen 17 mg/dL Creatinine 0.6 mg/dL Estimated GFR (Cockcroft-Gault) 94.3 BUN/Creatinine Ratio 28 Glucose Level 94 mg/dL Calcium Level 8.6 mg/dL Total Bilirubin 0.3 mg/dL Aspartate Amino Transf (AST/SGOT) 26 U/L Alanine Aminotransferase (ALT/SGPT) 14 U/L Alkaline Phosphatase 86 U/L Total Protein 6.5 g/dL Albumin 3.0 g/dL Albumin/Globulin Ratio 0.9 White Blood Count 6.6 x10^3/uL Red Blood Count 4.32 x10^6/uL Hemoglobin 12.2 g/dL Hematocrit 37.4 % Mean Corpuscular Volume 87 fL Mean Corpuscular Hemoglobin 28 pg Mean Corpuscular Hemoglobin Concent 33 g/dL Red Cell Distribution Width 15.3 % Platelet Count 299 x10^3/uL Neutrophils (%) (Auto) 58 % Lymphocytes (%) (Auto) 30 % Monocytes (%) (Auto) 8 % Eosinophils (%) (Auto) 2 % Basophils (%) (Auto) 1 % Neutrophils # (Auto) 3.8 x10^3uL Lymphocytes # (Auto) 2.0 x10^3/uL Monocytes # (Auto) 0.6 x10^3/uL Eosinophils # (Auto) 0.2 x10^3/uL Basophils # (Auto) 0.1 x10^3/uL Current Medications Medications (Trade) Dose Ordered Sig/Ruth Route PRN Reason Start Time Stop Time Status Last Admin Dose Admin Acetaminophen (Tylenol) 650 mg PRN Q6HRS PRN PO PAIN / TEMP > 100.3'F 07/26/21 07:45 Aspirin (Aspirin Chewable) 81 mg DAILY PO 07/26/21 09:00 08/05/21 08:33 Citalopram Hydrobromide (CeleXA) 20 mg DAILY PO 07/26/21 09:00 07/27/21 10:11 DC 07/27/21 08:56 Donepezil HCl (Aricept) 10 mg QHS PO 07/26/21 21:00 08/05/21 20:13 Gabapentin (Neurontin) 600 mg HS PO 07/26/21 21:00 08/05/21 20:13 Levothyroxine Sodium (Synthroid) 50 mcg DAILY06 PO 07/26/21 08:00 08/05/21 05:32 Pantoprazole Sodium (Protonix) 40 mg DAILYAC PO 07/26/21 08:00 08/05/21 08:33 Quetiapine Fumarate (SEROquel) 12.5 mg PRN Q4HRS PRN PO ANXIETY / AGITATION 07/26/21 07:45 08/04/21 21:48 Non-Formulary Medication ([TwoCal HN 2.0 liq] ) 60 ml BID PO 07/26/21 09:00 07/26/21 08:01 DC Acetaminophen (Tylenol) 650 mg PRN Q6HRS PRN PO MILD PAIN / TEMP > 100.3'F 07/26/21 08:15 07/26/21 08:33 DC Multi-Ingredient Ointment (Analgesic [place]) 1 judith PRN QID PRN TP MUSCLE PAIN 07/26/21 08:15 Al Hydroxide/Mg Hydroxide (Mylanta Plus Xs) 15 ml PRN AFTMEALHC PRN PO DYSPEPSIA 07/26/21 08:15 Magnesium Hydroxide (Milk Of Magnesia) 2,400 mg PRN QHS PRN PO CONSTIPATION 07/26/21 08:15 Sertraline HCl (Zoloft) 50 mg DAILY PO 07/28/21 09:00 08/05/21 08:33 Vitamin D (Vitamin D3) 50,000 unit WEEKLY PO 07/30/21 16:30 07/30/21 20:54 I have reviewed the current psychotropics carefully including drug interactions. Risk benefit ratio favors no change other than as noted in my dictated progress note. 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
--- NOTE | 2021-08-05 22:28 | NUR ---
Patient is in the hallway on assumption of care, socializing with a peer. She is in pleasant spirits. Appropriate in her interactions with staff and peers. Compliant with assessments and medications whole. No agitation. Patient denies any pain or discomfort. She appears to be sleeping comfortably at present time. Will continue to monitor.
--- NOTE | 2021-08-05 23:59 | PDOC ---
Exam Note: Ignacio Note: This note is a late entry for 08/04/2021 covers elements not covered in my initial note. Subjective: The patient was seen face to face in the evening of 08/04/2021 with Elmer KRAMER, discussed and reviewed the chart. The patient slept 6-1/4 hours previous night. Overall she gets more confused in the evening, compliant with her medications. Review of Systems: Ambulation impaired. No CV, , pulmonary, eye, ENT system symptoms on review. Reliability poor. Mental Status Exam: The patient is oriented to herself. Insight and judgment, recent and remote memory, attention and concentration, fund of knowledge is poor consistent with her diagnoses. Laboratory Data: Reviewed. Impression: Major neurocognitive disorder Alzheimer vascular with delusion, depression, behavioral disturbance. Anxiety disorder, unspecified. Impulse control disorder, unspecified. Plan: No change from initial note. Assessment: Vital Signs/I&O: Vital Signs Date Time Temp Pulse Resp B/P (MAP) Pulse Ox O2 Delivery O2 Flow Rate FiO2 08/05/21 15:34 98.4 84 16 103/64 (77) 93 07/31/21 05:42 Room Air I & O 08/04/21 08/04/21 08/05/21 15:00 23:00 07:00 Intake Total 240 ml 720 ml Output Total 240 ml Balance 0 ml 720 ml Labs: Laboratory Tests Test 08/05/21 08:00 08/05/21 08:05 Sodium Level 142 mmol/L (136-145) Potassium Level 4.1 mmol/L (3.5-5.1) Chloride Level 108 mmol/L (98-107) H Carbon Dioxide Level 26 mmol/L (21-32) Anion Gap 8 (6-14) Blood Urea Nitrogen 17 mg/dL (7-20) Creatinine 0.6 mg/dL (0.6-1.0) Estimated GFR (Cockcroft-Gault) 94.3 BUN/Creatinine Ratio 28 (6-20) H Glucose Level 94 mg/dL (70-99) Calcium Level 8.6 mg/dL (8.5-10.1) Total Bilirubin 0.3 mg/dL (0.2-1.0) Aspartate Amino Transferase (AST) 26 U/L (15-37) Alanine Aminotransferase (ALT) 14 U/L (14-59) Alkaline Phosphatase 86 U/L (46-116) Total Protein 6.5 g/dL (6.4-8.2) Albumin 3.0 g/dL (3.4-5.0) L Albumin/Globulin Ratio 0.9 (1.0-1.7) L White Blood Count 6.6 x10^3/uL (4.0-11.0) Red Blood Count 4.32 x10^6/uL (3.50-5.40) Hemoglobin 12.2 g/dL (12.0-15.5) Hematocrit 37.4 % (36.0-47.0) Mean Corpuscular Volume 87 fL (79-100) Mean Corpuscular Hemoglobin 28 pg (25-35) Mean Corpuscular Hemoglobin Concent 33 g/dL (31-37) Red Cell Distribution Width 15.3 % (11.5-14.5) H Platelet Count 299 x10^3/uL (140-400) Neutrophils (%) (Auto) 58 % (31-73) Lymphocytes (%) (Auto) 30 % (24-48) Monocytes (%) (Auto) 8 % (0-9) Eosinophils (%) (Auto) 2 % (0-3) Basophils (%) (Auto) 1 % (0-3) Neutrophils # (Auto) 3.8 x10^3uL (1.8-7.7) Lymphocytes # (Auto) 2.0 x10^3/uL (1.0-4.8) Monocytes # (Auto) 0.6 x10^3/uL (0.0-1.1) Eosinophils # (Auto) 0.2 x10^3/uL (0.0-0.7) Basophils # (Auto) 0.1 x10^3/uL (0.0-0.2) Current Medications: Meds: Laboratory Tests Test 08/05/21 08:00 08/05/21 08:05 Sodium Level 142 mmol/L Potassium Level 4.1 mmol/L Chloride Level 108 mmol/L Carbon Dioxide Level 26 mmol/L Anion Gap 8 Blood Urea Nitrogen 17 mg/dL Creatinine 0.6 mg/dL Estimated GFR (Cockcroft-Gault) 94.3 BUN/Creatinine Ratio 28 Glucose Level 94 mg/dL Calcium Level 8.6 mg/dL Total Bilirubin 0.3 mg/dL Aspartate Amino Transf (AST/SGOT) 26 U/L Alanine Aminotransferase (ALT/SGPT) 14 U/L Alkaline Phosphatase 86 U/L Total Protein 6.5 g/dL Albumin 3.0 g/dL Albumin/Globulin Ratio 0.9 White Blood Count 6.6 x10^3/uL Red Blood Count 4.32 x10^6/uL Hemoglobin 12.2 g/dL Hematocrit 37.4 % Mean Corpuscular Volume 87 fL Mean Corpuscular Hemoglobin 28 pg Mean Corpuscular Hemoglobin Concent 33 g/dL Red Cell Distribution Width 15.3 % Platelet Count 299 x10^3/uL Neutrophils (%) (Auto) 58 % Lymphocytes (%) (Auto) 30 % Monocytes (%) (Auto) 8 % Eosinophils (%) (Auto) 2 % Basophils (%) (Auto) 1 % Neutrophils # (Auto) 3.8 x10^3uL Lymphocytes # (Auto) 2.0 x10^3/uL Monocytes # (Auto) 0.6 x10^3/uL Eosinophils # (Auto) 0.2 x10^3/uL Basophils # (Auto) 0.1 x10^3/uL Current Medications Medications (Trade) Dose Ordered Sig/Ruth Route PRN Reason Start Time Stop Time Status Last Admin Dose Admin Acetaminophen (Tylenol) 650 mg PRN Q6HRS PRN PO PAIN / TEMP > 100.3'F 07/26/21 07:45 Aspirin (Aspirin Chewable) 81 mg DAILY PO 07/26/21 09:00 08/05/21 08:33 Citalopram Hydrobromide (CeleXA) 20 mg DAILY PO 07/26/21 09:00 07/27/21 10:11 DC 07/27/21 08:56 Donepezil HCl (Aricept) 10 mg QHS PO 07/26/21 21:00 08/05/21 20:13 Gabapentin (Neurontin) 600 mg HS PO 07/26/21 21:00 08/05/21 20:13 Levothyroxine Sodium (Synthroid) 50 mcg DAILY06 PO 07/26/21 08:00 08/05/21 05:32 Pantoprazole Sodium (Protonix) 40 mg DAILYAC PO 07/26/21 08:00 08/05/21 08:33 Quetiapine Fumarate (SEROquel) 12.5 mg PRN Q4HRS PRN PO ANXIETY / AGITATION 07/26/21 07:45 08/04/21 21:48 Non-Formulary Medication ([TwoCal HN 2.0 liq] ) 60 ml BID PO 07/26/21 09:00 07/26/21 08:01 DC Acetaminophen (Tylenol) 650 mg PRN Q6HRS PRN PO MILD PAIN / TEMP > 100.3'F 07/26/21 08:15 07/26/21 08:33 DC Multi-Ingredient Ointment (Analgesic [place]) 1 judith PRN QID PRN TP MUSCLE PAIN 07/26/21 08:15 Al Hydroxide/Mg Hydroxide (Mylanta Plus Xs) 15 ml PRN AFTMEALHC PRN PO DYSPEPSIA 07/26/21 08:15 Magnesium Hydroxide (Milk Of Magnesia) 2,400 mg PRN QHS PRN PO CONSTIPATION 07/26/21 08:15 Sertraline HCl (Zoloft) 50 mg DAILY PO 07/28/21 09:00 08/05/21 08:33 Vitamin D (Vitamin D3) 50,000 unit WEEKLY PO 07/30/21 16:30 07/30/21 20:54 I have reviewed the current psychotropics carefully including drug interactions. Risk benefit ratio favors no change other than as noted in my dictated progress note. 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
[2021-08-06] MEDS: LEVOTHYROXINE 50 MCG TABLET PO SCH (05:35)
[2021-08-06 06:14] VITALS: BP 137/78
[2021-08-06] MEDS: PANTOPRAZOLE 40 MG TABLET. PO SCH (08:15)
[2021-08-06] MEDS: SERTRALINE 50 MG TABLET. PO SCH (08:15)
[2021-08-06] MEDS: ASPIRIN CHEWABLE 81 MG TABLET. PO SCH (08:15)
[2021-08-06] MEDS: CHOLECALCIFEROL (VITAMIN D3) 50,000 UNIT CAPSULE PO SCH (08:16)
--- NOTE | 2021-08-06 11:56 | NUR ---
Nursing note: Pt in dining room at time of AM med pass and assessment. She is pleasant, med compliant and cooperative. Pt has no complaints or concerns at time of assessment. She is currently in the dining room for lunch. Will continue to monitor.
[2021-08-06 15:56] VITALS: BP 113/70
[2021-08-06] MEDS: GABAPENTIN 300 MG CAPSULE. PO SCH (19:50)
[2021-08-06] MEDS: DONEPEZIL HCL 10 MG TABLET PO SCH (19:50)
--- NOTE | 2021-08-06 22:20 | PDOC ---
Exam Note: Ignacio Note: Please also refer to the separate dictated note~for this date of service dictated separately.~Patient seen individually. Discussed the patient with Nursing staff reviewed the chart.~Reviewed interim history and current functioning. Reviewed vital signs,~Labs/ Radiology~and current medications noted below. Continue current treatment with the changes noted in the dictated addendum note Assessment: Vital Signs/I&O: Vital Signs Date Time Temp Pulse Resp B/P (MAP) Pulse Ox O2 Delivery O2 Flow Rate FiO2 08/06/21 15:56 97.4 74 20 113/70 (84) 97 I & O 08/05/21 08/05/21 08/06/21 15:00 23:00 07:00 Intake Total 600 ml 240 ml Balance 600 ml 240 ml Current Medications: Meds: Current Medications Medications (Trade) Dose Ordered Sig/Ruth Route PRN Reason Start Time Stop Time Status Last Admin Dose Admin Acetaminophen (Tylenol) 650 mg PRN Q6HRS PRN PO PAIN / TEMP > 100.3'F 07/26/21 07:45 Aspirin (Aspirin Chewable) 81 mg DAILY PO 07/26/21 09:00 08/06/21 08:15 Citalopram Hydrobromide (CeleXA) 20 mg DAILY PO 07/26/21 09:00 07/27/21 10:11 DC 07/27/21 08:56 Donepezil HCl (Aricept) 10 mg QHS PO 07/26/21 21:00 08/06/21 19:50 Gabapentin (Neurontin) 600 mg HS PO 07/26/21 21:00 08/06/21 19:50 Levothyroxine Sodium (Synthroid) 50 mcg DAILY06 PO 07/26/21 08:00 08/06/21 05:35 Pantoprazole Sodium (Protonix) 40 mg DAILYAC PO 07/26/21 08:00 08/06/21 08:15 Quetiapine Fumarate (SEROquel) 12.5 mg PRN Q4HRS PRN PO ANXIETY / AGITATION 07/26/21 07:45 08/04/21 21:48 Non-Formulary Medication ([TwoCal HN 2.0 liq] ) 60 ml BID PO 07/26/21 09:00 07/26/21 08:01 DC Acetaminophen (Tylenol) 650 mg PRN Q6HRS PRN PO MILD PAIN / TEMP > 100.3'F 07/26/21 08:15 07/26/21 08:33 DC Multi-Ingredient Ointment (Analgesic [place]) 1 judith PRN QID PRN TP MUSCLE PAIN 07/26/21 08:15 Al Hydroxide/Mg Hydroxide (Mylanta Plus Xs) 15 ml PRN AFTMEALHC PRN PO DYSPEPSIA 07/26/21 08:15 Magnesium Hydroxide (Milk Of Magnesia) 2,400 mg PRN QHS PRN PO CONSTIPATION 07/26/21 08:15 Sertraline HCl (Zoloft) 50 mg DAILY PO 07/28/21 09:00 08/06/21 08:15 Vitamin D (Vitamin D3) 50,000 unit WEEKLY PO 07/30/21 16:30 08/06/21 08:16 I have reviewed the current psychotropics carefully including drug interactions. Risk benefit ratio favors no change other than as noted in my dictated progress note. 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
[2021-08-07] MEDS: LEVOTHYROXINE 50 MCG TABLET PO SCH (05:12)
[2021-08-07 05:59] VITALS: BP 142/87
[2021-08-07] MEDS: SERTRALINE 50 MG TABLET. PO SCH (08:08)
[2021-08-07] MEDS: ASPIRIN CHEWABLE 81 MG TABLET. PO SCH (08:08)
[2021-08-07] MEDS: PANTOPRAZOLE 40 MG TABLET. PO SCH (08:08)
--- NOTE | 2021-08-07 09:21 | NUR ---
Nurse Note Patient alert to self and confused. Patient ambulates in room , hallway and to dining room. Speech is clear and concise , no hearing loss. Hand grasp strong equal. Patient dependent to toilet, assist with showers. Skin warm and dry. Feed self. Medication compliant. PAtient repeatedly asking to go home, patient is easily redirected. No behaviors noted at this time.
--- NOTE | 2021-08-07 10:09 | PDOC ---
Exam Note: Ignacio Note: This note is a late entry for 08/05/2021 covers elements not covered in my initial note. Subjective: The patient was seen individually in the evening of 08/05/2021 with Elmer KRAMER, discussed and reviewed the chart. The patient slept 6-1/4 hours previous night. Overall she remains confused and has done reasonably well, not agitated or aggressive. She still gets tearful and depressed at times but less evening of 08/05 as I met with her. Review of Systems: Ambulation impaired. No CV, , pulmonary, eye, ENT system symptoms on review. She is outside her room in the corridor on the East side having moved there on 08/05. Mental Status Exam: The patient is oriented to herself. Insight and judgment, recent and remote memory, attention and concentration, fund of knowledge is poor consistent with her diagnoses. Laboratory Data: Reviewed. Impression: Major neurocognitive disorder Alzheimer vascular with delusion, depression, behavioral disturbance. Anxiety disorder, unspecified. Impulse control disorder, unspecified. Plan: No change from initial note. Assessment: Vital Signs/I&O: Vital Signs Date Time Temp Pulse Resp B/P (MAP) Pulse Ox O2 Delivery O2 Flow Rate FiO2 08/07/21 05:59 97.6 66 16 142/87 (105) 94 I & O 08/06/21 08/06/21 08/07/21 15:00 23:00 07:00 Intake Total 840 ml 360 ml Balance 840 ml 360 ml Current Medications: Meds: Current Medications Medications (Trade) Dose Ordered Sig/Ruth Route PRN Reason Start Time Stop Time Status Last Admin Dose Admin Acetaminophen (Tylenol) 650 mg PRN Q6HRS PRN PO PAIN / TEMP > 100.3'F 07/26/21 07:45 Aspirin (Aspirin Chewable) 81 mg DAILY PO 07/26/21 09:00 08/07/21 08:08 Citalopram Hydrobromide (CeleXA) 20 mg DAILY PO 07/26/21 09:00 07/27/21 10:11 DC 07/27/21 08:56 Donepezil HCl (Aricept) 10 mg QHS PO 07/26/21 21:00 08/06/21 19:50 Gabapentin (Neurontin) 600 mg HS PO 07/26/21 21:00 08/06/21 19:50 Levothyroxine Sodium (Synthroid) 50 mcg DAILY06 PO 07/26/21 08:00 08/07/21 05:12 Pantoprazole Sodium (Protonix) 40 mg DAILYAC PO 07/26/21 08:00 08/07/21 08:08 Quetiapine Fumarate (SEROquel) 12.5 mg PRN Q4HRS PRN PO ANXIETY / AGITATION 07/26/21 07:45 08/04/21 21:48 Non-Formulary Medication ([TwoCal HN 2.0 liq] ) 60 ml BID PO 07/26/21 09:00 07/26/21 08:01 DC Acetaminophen (Tylenol) 650 mg PRN Q6HRS PRN PO MILD PAIN / TEMP > 100.3'F 07/26/21 08:15 07/26/21 08:33 DC Multi-Ingredient Ointment (Analgesic [place]) 1 judith PRN QID PRN TP MUSCLE PAIN 07/26/21 08:15 Al Hydroxide/Mg Hydroxide (Mylanta Plus Xs) 15 ml PRN AFTMEALHC PRN PO DYSPEPSIA 07/26/21 08:15 Magnesium Hydroxide (Milk Of Magnesia) 2,400 mg PRN QHS PRN PO CONSTIPATION 07/26/21 08:15 Sertraline HCl (Zoloft) 50 mg DAILY PO 07/28/21 09:00 08/07/21 08:08 Vitamin D (Vitamin D3) 50,000 unit WEEKLY PO 07/30/21 16:30 08/06/21 08:16 I have reviewed the current psychotropics carefully including drug interactions. Risk benefit ratio favors no change other than as noted in my dictated progress note. Diagnosis: Problems: (1) Major neurocognitive disorder (2) Impulse control disorder, unspecified (3) Anxiety disorder, unspecified (4) Dementia, vascular, with depression (5) Dementia, vascular, with delusions (6) Dementia in Alzheimer's disease with depression (7) Dementia in Alzheimer's disease with delusions (8) Dementia of the Alzheimer's type with early onset with behavioral disturbanc EVANS Jean MD Aug 07, 2021 10:09
[2021-08-07 16:06] VITALS: BP 130/67
[2021-08-07] MEDS: DONEPEZIL HCL 10 MG TABLET PO SCH (20:45)
[2021-08-07] MEDS: GABAPENTIN 300 MG CAPSULE. PO SCH (20:45)
--- NOTE | 2021-08-07 22:06 | PDOC ---
Exam Note: Ignacio Note: Please also refer to the separate dictated note~for this date of service dictated separately.~Patient seen individually. Discussed the patient with Nursing staff reviewed the chart.~Reviewed interim history and current functioning. Reviewed vital signs,~Labs/ Radiology~and current medications noted below. Continue current treatment with the changes noted in the dictated addendum note Assessment: Vital Signs/I&O: Vital Signs Date Time Temp Pulse Resp B/P (MAP) Pulse Ox O2 Delivery O2 Flow Rate FiO2 08/07/21 16:06 97.7 85 16 130/67 (88) 96 I & O 08/06/21 08/06/21 08/07/21 15:00 23:00 07:00 Intake Total 840 ml 360 ml Balance 840 ml 360 ml Current Medications: Meds: Current Medications Medications (Trade) Dose Ordered Sig/Ruth Route PRN Reason Start Time Stop Time Status Last Admin Dose Admin Acetaminophen (Tylenol) 650 mg PRN Q6HRS PRN PO PAIN / TEMP > 100.3'F 07/26/21 07:45 Aspirin (Aspirin Chewable) 81 mg DAILY PO 07/26/21 09:00 08/07/21 08:08 Citalopram Hydrobromide (CeleXA) 20 mg DAILY PO 07/26/21 09:00 07/27/21 10:11 DC 07/27/21 08:56 Donepezil HCl (Aricept) 10 mg QHS PO 07/26/21 21:00 08/07/21 20:45 Gabapentin (Neurontin) 600 mg HS PO 07/26/21 21:00 08/07/21 20:45 Levothyroxine Sodium (Synthroid) 50 mcg DAILY06 PO 07/26/21 08:00 08/07/21 05:12 Pantoprazole Sodium (Protonix) 40 mg DAILYAC PO 07/26/21 08:00 08/07/21 08:08 Quetiapine Fumarate (SEROquel) 12.5 mg PRN Q4HRS PRN PO ANXIETY / AGITATION 07/26/21 07:45 08/04/21 21:48 Non-Formulary Medication ([TwoCal HN 2.0 liq] ) 60 ml BID PO 07/26/21 09:00 07/26/21 08:01 DC Acetaminophen (Tylenol) 650 mg PRN Q6HRS PRN PO MILD PAIN / TEMP > 100.3'F 07/26/21 08:15 07/26/21 08:33 DC Multi-Ingredient Ointment (Analgesic [place]) 1 judith PRN QID PRN TP MUSCLE PAIN 07/26/21 08:15 Al Hydroxide/Mg Hydroxide (Mylanta Plus Xs) 15 ml PRN AFTMEALHC PRN PO DYSPEPSIA 07/26/21 08:15 Magnesium Hydroxide (Milk Of Magnesia) 2,400 mg PRN QHS PRN PO CONSTIPATION 07/26/21 08:15 Sertraline HCl (Zoloft) 50 mg DAILY PO 07/28/21 09:00 08/07/21 08:08 Vitamin D (Vitamin D3) 50,000 unit WEEKLY PO 07/30/21 16:30 08/06/21 08:16 I have reviewed the current psychotropics carefully including drug interactions. Risk benefit ratio favors no change other than as noted in my dictated progress note. 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
--- NOTE | 2021-08-07 22:45 | NUR ---
Patient spent the evening socializing with several peers in the hallway. She is calm, pleasant, interactive, cooperative and compliant with medications. Patient is very forgetful; she asked for a night gown several times despite being told each time that there was one on her bed for her. Patient stated that she wants to go home, she spoke with Dr Dhillon about that on rounds.
[2021-08-08] MEDS: LEVOTHYROXINE 50 MCG TABLET PO SCH (05:31)
[2021-08-08 05:57] VITALS: BP 116/67
[2021-08-08] MEDS: ASPIRIN CHEWABLE 81 MG TABLET. PO SCH (08:03)
[2021-08-08] MEDS: PANTOPRAZOLE 40 MG TABLET. PO SCH (08:03)
[2021-08-08] MEDS: SERTRALINE 50 MG TABLET. PO SCH (08:03)
--- NOTE | 2021-08-08 08:25 | PDOC ---
Exam Note: Ignacio Note: This note is a late entry for 08/06/2021 covers elements not covered in my initial note. Subjective: The patient was seen individually in the evening of 08/06/2021 with Elmer KRAMER, discussed and reviewed the chart. The patient slept 6-1/2 hours previous night. I met with her in the hallway. She was sitting in the East hallway outside her room. Review of Systems: Ambulation impaired. No CV, , pulmonary, eye, ENT system symptoms on review. Mental Status Exam: The patient is oriented to herself. Insight and judgment, recent and remote memory, attention and concentration, fund of knowledge is poor consistent with her diagnoses. Laboratory Data: Reviewed. Impression: Major neurocognitive disorder Alzheimer vascular with delusion, depression, behavioral disturbance. Anxiety disorder, unspecified. Impulse control disorder, unspecified. Plan: No change from initial note. Assessment: Vital Signs/I&O: Vital Signs Date Time Temp Pulse Resp B/P (MAP) Pulse Ox O2 Delivery O2 Flow Rate FiO2 08/08/21 05:57 96.4 70 16 116/67 (83) 97 I & O 08/07/21 08/07/21 08/08/21 15:00 23:00 07:00 Intake Total 720 ml 600 ml Balance 720 ml 600 ml Current Medications: Meds: Current Medications Medications (Trade) Dose Ordered Sig/Ruth Route PRN Reason Start Time Stop Time Status Last Admin Dose Admin Acetaminophen (Tylenol) 650 mg PRN Q6HRS PRN PO PAIN / TEMP > 100.3'F 07/26/21 07:45 Aspirin (Aspirin Chewable) 81 mg DAILY PO 07/26/21 09:00 08/08/21 08:03 Citalopram Hydrobromide (CeleXA) 20 mg DAILY PO 07/26/21 09:00 07/27/21 10:11 DC 07/27/21 08:56 Donepezil HCl (Aricept) 10 mg QHS PO 07/26/21 21:00 08/07/21 20:45 Gabapentin (Neurontin) 600 mg HS PO 07/26/21 21:00 08/07/21 20:45 Levothyroxine Sodium (Synthroid) 50 mcg DAILY06 PO 07/26/21 08:00 08/08/21 05:31 Pantoprazole Sodium (Protonix) 40 mg DAILYAC PO 07/26/21 08:00 08/08/21 08:03 Quetiapine Fumarate (SEROquel) 12.5 mg PRN Q4HRS PRN PO ANXIETY / AGITATION 07/26/21 07:45 08/04/21 21:48 Non-Formulary Medication ([TwoCal HN 2.0 liq] ) 60 ml BID PO 07/26/21 09:00 07/26/21 08:01 DC Acetaminophen (Tylenol) 650 mg PRN Q6HRS PRN PO MILD PAIN / TEMP > 100.3'F 07/26/21 08:15 07/26/21 08:33 DC Multi-Ingredient Ointment (Analgesic [place]) 1 judith PRN QID PRN TP MUSCLE PAIN 07/26/21 08:15 Al Hydroxide/Mg Hydroxide (Mylanta Plus Xs) 15 ml PRN AFTMEALHC PRN PO DYSPEPSIA 07/26/21 08:15 Magnesium Hydroxide (Milk Of Magnesia) 2,400 mg PRN QHS PRN PO CONSTIPATION 07/26/21 08:15 Sertraline HCl (Zoloft) 50 mg DAILY PO 07/28/21 09:00 08/08/21 08:03 Vitamin D (Vitamin D3) 50,000 unit WEEKLY PO 07/30/21 16:30 08/06/21 08:16 I have reviewed the current psychotropics carefully including drug interactions. Risk benefit ratio favors no change other than as noted in my dictated progress note. Diagnosis: Problems: (1) Major neurocognitive disorder (2) Impulse control disorder, unspecified (3) Anxiety disorder, unspecified (4) Dementia, vascular, with depression (5) Dementia, vascular, with delusions (6) Dementia in Alzheimer's disease with depression (7) Dementia in Alzheimer's disease with delusions (8) Dementia of the Alzheimer's type with early onset with behavioral disturbance EVANS KWON MD Aug 08, 2021 08:25
--- NOTE | 2021-08-08 08:41 | PDOC ---
Exam Note: Ignacio Note: This note is a late entry for 08/07/2021 covers elements not covered in my initial note. Subjective: The patient was seen individually in the evening of 08/07/2021 with Viola KRAMER, discussed and reviewed the chart. The patient slept 5-1/2 hours previous night. Again I met with the patient as she was seated outside her room in the East hallway. She is obsessing about discharge and we addressed this. She is quite forgetful. Review of Systems: Ambulation impaired. No CV, , pulmonary, eye, ENT system symptoms on review. Mental Status Exam: The patient is oriented to herself. Insight and judgment, recent and remote memory, attention and concentration, fund of knowledge is poor consistent with her diagnoses. Laboratory Data: Reviewed. Impression: Major neurocognitive disorder Alzheimer vascular with delusion, depression, behavioral disturbance. Anxiety disorder, unspecified. Impulse control disorder, unspecified. Plan: No change from initial note. Assessment: Vital Signs/I&O: Vital Signs Date Time Temp Pulse Resp B/P (MAP) Pulse Ox O2 Delivery O2 Flow Rate FiO2 08/08/21 05:57 96.4 70 16 116/67 (83) 97 I & O 08/07/21 08/07/21 08/08/21 15:00 23:00 07:00 Intake Total 720 ml 600 ml Balance 720 ml 600 ml Current Medications: Meds: Current Medications Medications (Trade) Dose Ordered Sig/Ruth Route PRN Reason Start Time Stop Time Status Last Admin Dose Admin Acetaminophen (Tylenol) 650 mg PRN Q6HRS PRN PO PAIN / TEMP > 100.3'F 07/26/21 07:45 Aspirin (Aspirin Chewable) 81 mg DAILY PO 07/26/21 09:00 08/08/21 08:03 Citalopram Hydrobromide (CeleXA) 20 mg DAILY PO 07/26/21 09:00 07/27/21 10:11 DC 07/27/21 08:56 Donepezil HCl (Aricept) 10 mg QHS PO 07/26/21 21:00 08/07/21 20:45 Gabapentin (Neurontin) 600 mg HS PO 07/26/21 21:00 08/07/21 20:45 Levothyroxine Sodium (Synthroid) 50 mcg DAILY06 PO 07/26/21 08:00 08/08/21 05:31 Pantoprazole Sodium (Protonix) 40 mg DAILYAC PO 07/26/21 08:00 08/08/21 08:03 Quetiapine Fumarate (SEROquel) 12.5 mg PRN Q4HRS PRN PO ANXIETY / AGITATION 07/26/21 07:45 08/04/21 21:48 Non-Formulary Medication ([TwoCal HN 2.0 liq] ) 60 ml BID PO 07/26/21 09:00 07/26/21 08:01 DC Acetaminophen (Tylenol) 650 mg PRN Q6HRS PRN PO MILD PAIN / TEMP > 100.3'F 07/26/21 08:15 07/26/21 08:33 DC Multi-Ingredient Ointment (Analgesic [place]) 1 judith PRN QID PRN TP MUSCLE PAIN 07/26/21 08:15 Al Hydroxide/Mg Hydroxide (Mylanta Plus Xs) 15 ml PRN AFTMEALHC PRN PO DYSPEPSIA 07/26/21 08:15 Magnesium Hydroxide (Milk Of Magnesia) 2,400 mg PRN QHS PRN PO CONSTIPATION 07/26/21 08:15 Sertraline HCl (Zoloft) 50 mg DAILY PO 07/28/21 09:00 08/08/21 08:03 Vitamin D (Vitamin D3) 50,000 unit WEEKLY PO 07/30/21 16:30 08/06/21 08:16 I have reviewed the current psychotropics carefully including drug interactions. Risk benefit ratio favors no change other than as noted in my dictated progress note. Diagnosis: Problems: (1) Major neurocognitive disorder (2) Impulse control disorder, unspecified (3) Anxiety disorder, unspecified (4) Dementia, vascular, with depression (5) Dementia, vascular, with delusions (6) Dementia in Alzheimer's disease with depression (7) Dementia in Alzheimer's disease with delusions (8) Dementia of the Alzheimer's type with early onset with behavioral disturbance EVANS KWON MD Aug 08, 2021 08:41
--- NOTE | 2021-08-08 09:20 | NUR ---
SW contacted Risk Management to discuss the DPOA paperwork to make sure SW not only understood it correctly, but to question what would need to happen in the event all parties did not agree for discharge planning purposes. As it stands, they have a difference in opinion. Risk Management mentioned that if all parties did not agree, it should be mentioned that the case could be taken to court and a guardian, non-family, could be assigned to her. Hopefully that would sway the family into making a unanimous decision; however, that would be the next step if all parties continue to disagree on pt plan of care.
--- NOTE | 2021-08-08 11:11 | NUR ---
Nursing note: Pt in dining room at time of AM med pass and assessment. She is pleasant, med compliant and cooperative. She is forgetful, asking staff repeatedly to let the doctor know she wants to speak with him when he gets here. Pt continues to be reassured by staff and she is accepting of it. Pt is currently resting quietly in her room. Will continue to monitor.
--- NOTE | 2021-08-08 12:40 | NUR ---
BASSEM received call from Serafin, pt brother, who wanted an update on pt status. BASSEM gave Serafin an update on pt behaviors and reported that pt would be ready to discharge soon and would need to establish a meeting with all parties to determine pt discharge outcome. It was BASSEM understanding that Serafin did not want pt to discharge to [place]; however, pt dtr did. Serafin reports that he is willing to concede letting pt discharge to [place] with her dtr; however, he needs Lisa to call him. He wants to make sure that he is still able to get updates on how pt is doing and information on how to reach her so that he can continue to still be in the loop. "Lisa thinks her shit doesn't stink and I'm willing to let this all go if she will just call me". BASSEM will pass the message on to Lisa and informed Serafin that if anything more comes up, BASSEM would be in contact with him.
--- NOTE | 2021-08-08 13:00 | NUR ---
BASSEM contacted Lisa, pt dtr, to let her know that SW received a call from Serafin, who wanted to give his consent for pt to discharge to [place] on the contingency that Lisa called him He wants to continue to be kept update on pt care and get information on where pt would be going. Lisa questioned SW how Serafin received the passcode because she never gave it to him; BASSEM is not aware of that as this is the first time SW has talked to him, but he did give SW the code before anything was discussed. Lisa is leary about calling pt, in which SW understood; however, SW also wants to make sure that pt discharge plan goes accordingly. With having a triple DPOA, it would be a disservice to the pt. Lisa mentioned that pt has no say on pt placement. He has medical DPOA but Lisa has the financial and other rights for POA. BASSEM questioned Lisa and she reports that there are 2 DPOA in which SW reported only receiving one. Lisa will forward it on to BASSEM and explained that while Lisa, her sister Vanesa and her uncle Serafin have equal rights for DPOA; Lisa has been assigned as her DPOA for other things such as placement and financials. BASSEM will go over this with Risk Mgmt; Lisa requested that SW not say anything to her uncle until she double checks with [employer] to make sure she understands the DPOA herself.
[2021-08-08 15:50] VITALS: BP 119/64
[2021-08-08] MEDS: GABAPENTIN 300 MG CAPSULE. PO SCH (21:14)
[2021-08-08] MEDS: DONEPEZIL HCL 10 MG TABLET PO SCH (21:14)
--- NOTE | 2021-08-08 22:13 | PDOC ---
Exam Note: Ignacio Note: Please also refer to the separate dictated note~for this date of service dictated separately.~Patient seen individually. Discussed the patient with Nursing staff reviewed the chart.~Reviewed interim history and current functioning. Reviewed vital signs,~Labs/ Radiology~and current medications noted below. Continue current treatment with the changes noted in the dictated addendum note Assessment: Vital Signs/I&O: Vital Signs Date Time Temp Pulse Resp B/P (MAP) Pulse Ox O2 Delivery O2 Flow Rate FiO2 08/08/21 15:50 97.1 76 18 119/64 (82) 96 I & O 08/07/21 08/07/21 08/08/21 15:00 23:00 07:00 Intake Total 720 ml 600 ml Balance 720 ml 600 ml Current Medications: Meds: Current Medications Medications (Trade) Dose Ordered Sig/Ruth Route PRN Reason Start Time Stop Time Status Last Admin Dose Admin Acetaminophen (Tylenol) 650 mg PRN Q6HRS PRN PO PAIN / TEMP > 100.3'F 07/26/21 07:45 Aspirin (Aspirin Chewable) 81 mg DAILY PO 07/26/21 09:00 08/08/21 08:03 Citalopram Hydrobromide (CeleXA) 20 mg DAILY PO 07/26/21 09:00 07/27/21 10:11 DC 07/27/21 08:56 Donepezil HCl (Aricept) 10 mg QHS PO 07/26/21 21:00 08/08/21 21:14 Gabapentin (Neurontin) 600 mg HS PO 07/26/21 21:00 08/08/21 21:14 Levothyroxine Sodium (Synthroid) 50 mcg DAILY06 PO 07/26/21 08:00 08/08/21 05:31 Pantoprazole Sodium (Protonix) 40 mg DAILYAC PO 07/26/21 08:00 08/08/21 08:03 Quetiapine Fumarate (SEROquel) 12.5 mg PRN Q4HRS PRN PO ANXIETY / AGITATION 07/26/21 07:45 08/04/21 21:48 Non-Formulary Medication ([TwoCal HN 2.0 liq] ) 60 ml BID PO 07/26/21 09:00 07/26/21 08:01 DC Acetaminophen (Tylenol) 650 mg PRN Q6HRS PRN PO MILD PAIN / TEMP > 100.3'F 07/26/21 08:15 07/26/21 08:33 DC Multi-Ingredient Ointment (Analgesic [place]) 1 judith PRN QID PRN TP MUSCLE PAIN 07/26/21 08:15 Al Hydroxide/Mg Hydroxide (Mylanta Plus Xs) 15 ml PRN AFTMEALHC PRN PO DYSPEPSIA 07/26/21 08:15 Magnesium Hydroxide (Milk Of Magnesia) 2,400 mg PRN QHS PRN PO CONSTIPATION 07/26/21 08:15 Sertraline HCl (Zoloft) 50 mg DAILY PO 07/28/21 09:00 08/08/21 08:03 Vitamin D (Vitamin D3) 50,000 unit WEEKLY PO 07/30/21 16:30 08/06/21 08:16 I have reviewed the current psychotropics carefully including drug interactions. Risk benefit ratio favors no change other than as noted in my dictated progress note. Diagnosis: Problems: (1) Major neurocognitive disorder (2) Impulse control disorder, unspecified (3) Anxiety disorder, unspecified (4) Dementia, vascular, with depression (5) Dementia, vascular, with delusions (6) Dementia in Alzheimer's disease with depression (7) Dementia in Alzheimer's disease with delusions (8) Dementia of the Alzheimer's type with early onset with behavioral disturbance EVANS KWON MD Aug 08, 2021 22:13
--- NOTE | 2021-08-08 22:35 | NUR ---
Patient was in the hallway with peers socializing tonight. She was compliant with medications and cooperative with assessment. Patient is forgetful but pleasant and calm. No adverse behaviors were noted at this time.
[2021-08-09] MEDS: LEVOTHYROXINE 50 MCG TABLET PO SCH (05:10)
[2021-08-09 06:02] VITALS: BP 121/72
[2021-08-09] MEDS: ASPIRIN CHEWABLE 81 MG TABLET. PO SCH (08:03)
[2021-08-09] MEDS: SERTRALINE 50 MG TABLET. PO SCH (08:04)
[2021-08-09] MEDS: PANTOPRAZOLE 40 MG TABLET. PO SCH (08:04)
--- NOTE | 2021-08-09 08:26 | PDOC ---
Exam Note: Ignacio Note: This note is a late entry for 08/08/2021 covers elements not covered in my initial note. Subjective: The patient was seen individually in the evening of 08/08/2021 with Viola KRAMER, discussed and reviewed the chart. The patient slept 6-1/2 hours previous night. Reportedly the patients daughter would like for the patient to be discharged home to go to [place] closer to the daughter but reportedly the brother who is the DPOA is not wanting this to happen. She does have short-term memory deficits, otherwise, pleasant, cooperative. Review of Systems: Ambulation impaired. No CV, , pulmonary, eye, ENT system symptoms on review. Reliability poor. Mental Status Exam: The patient is oriented to herself. Insight and judgment, recent and remote memory, attention and concentration, fund of knowledge is poor consistent with her diagnoses. Laboratory Data: Reviewed. Impression: Major neurocognitive disorder Alzheimer vascular with delusion, depression, behavioral disturbance. Anxiety disorder, unspecified. Impulse control disorder, unspecified. Plan: No change from initial note. Assessment: Vital Signs/I&O: Vital Signs Date Time Temp Pulse Resp B/P (MAP) Pulse Ox O2 Delivery O2 Flow Rate FiO2 08/09/21 06:02 97.7 67 16 121/72 (88) 92 I & O 08/08/21 08/08/21 08/09/21 15:00 23:00 07:00 Intake Total 720 ml 840 ml Balance 720 ml 840 ml Current Medications: Meds: Current Medications Medications (Trade) Dose Ordered Sig/Ruth Route PRN Reason Start Time Stop Time Status Last Admin Dose Admin Acetaminophen (Tylenol) 650 mg PRN Q6HRS PRN PO PAIN / TEMP > 100.3'F 07/26/21 07:45 Aspirin (Aspirin Chewable) 81 mg DAILY PO 07/26/21 09:00 08/09/21 08:03 Citalopram Hydrobromide (CeleXA) 20 mg DAILY PO 07/26/21 09:00 07/27/21 10:11 DC 07/27/21 08:56 Donepezil HCl (Aricept) 10 mg QHS PO 07/26/21 21:00 08/08/21 21:14 Gabapentin (Neurontin) 600 mg HS PO 07/26/21 21:00 08/08/21 21:14 Levothyroxine Sodium (Synthroid) 50 mcg DAILY06 PO 07/26/21 08:00 08/09/21 05:10 Pantoprazole Sodium (Protonix) 40 mg DAILYAC PO 07/26/21 08:00 08/09/21 08:04 Quetiapine Fumarate (SEROquel) 12.5 mg PRN Q4HRS PRN PO ANXIETY / AGITATION 07/26/21 07:45 08/04/21 21:48 Non-Formulary Medication ([TwoCal HN 2.0 liq] ) 60 ml BID PO 07/26/21 09:00 07/26/21 08:01 DC Acetaminophen (Tylenol) 650 mg PRN Q6HRS PRN PO MILD PAIN / TEMP > 100.3'F 07/26/21 08:15 07/26/21 08:33 DC Multi-Ingredient Ointment (Analgesic [place]) 1 judith PRN QID PRN TP MUSCLE PAIN 07/26/21 08:15 Al Hydroxide/Mg Hydroxide (Mylanta Plus Xs) 15 ml PRN AFTMEALHC PRN PO DYSPEPSIA 07/26/21 08:15 Magnesium Hydroxide (Milk Of Magnesia) 2,400 mg PRN QHS PRN PO CONSTIPATION 07/26/21 08:15 Sertraline HCl (Zoloft) 50 mg DAILY PO 07/28/21 09:00 08/09/21 08:04 Vitamin D (Vitamin D3) 50,000 unit WEEKLY PO 07/30/21 16:30 08/06/21 08:16 I have reviewed the current psychotropics carefully including drug interactions. Risk benefit ratio favors no change other than as noted in my dictated progress note. Diagnosis: Problems: (1) Major neurocognitive disorder (2) Impulse control disorder, unspecified (3) Anxiety disorder, unspecified (4) Dementia, vascular, with depression (5) Dementia, vascular, with delusions (6) Dementia in Alzheimer's disease with depression (7) Dementia in Alzheimer's disease with delusions (8) Dementia of the Alzheimer's type with early onset with behavioral disturbance EVANS KWON MD Aug 09, 2021 08:26
--- NOTE | 2021-08-09 09:35 | NUR ---
BASSEM discussed with Risk Management the DPOA paperwork received from pt dtr; it does state that pt dtr has the DPOA to make decisions based off other aspects of pt care, such as financials, real estate, etc.
--- NOTE | 2021-08-09 14:33 | NUR ---
Pt has been socializing with peers in the hallway and listening to music and sitting quietly in the chair. After lunch she attended group outside and participated with others. Pt is pleasantly confused, cooperative, and medication compliant. This afternoon she had some popcorn and continued to socialize with others on the unit.
[2021-08-09] MEDS: QUEtiapine 25 MG TABLET. PO PRN (15:55)
[2021-08-09 16:08] VITALS: BP 125/75
--- NOTE | 2021-08-09 16:15 | NUR ---
Pt became anxious, was exit seeking, asking staff to unlock the doors so she could go home, and becoming agitated when redirected. Nursing administered her PRN Seroquel around 1553 and assured her that her family was aware of where she was at and they knew she was staying the night. Pt later calmed down and was able to become regulated.
[2021-08-09] MEDS: GABAPENTIN 300 MG CAPSULE. PO SCH (19:44)
[2021-08-09] MEDS: DONEPEZIL HCL 10 MG TABLET PO SCH (19:44)
--- NOTE | 2021-08-10 00:16 | NUR ---
This evening pt said she needed to leave for an appointment and was trying to find a way out. She took HS meds without difficulty then was redirected to her room and given a magazine to read and she calmed after awhile and went to bed and has been sleeping.
[2021-08-10] MEDS: LEVOTHYROXINE 50 MCG TABLET PO SCH (05:30)
[2021-08-10 06:58] VITALS: BP 115/70
[2021-08-10] MEDS: SERTRALINE 50 MG TABLET. PO SCH (08:21)
[2021-08-10] MEDS: PANTOPRAZOLE 40 MG TABLET. PO SCH (08:21)
[2021-08-10] MEDS: ASPIRIN CHEWABLE 81 MG TABLET. PO SCH (08:21)
--- NOTE | 2021-08-10 11:18 | NUR ---
WEEKLY ACTIVITY THERAPY NOTE Date of Admission: 07/26/21 Date of AT Assessment:07/27 Precipitating behaviors that initiated intake and admission: Pt was agitated, verbally aggressive, irritable, throwing food, cursing exit seeking. Goal aimed: increase stress management and relaxation skills Initial Goal: Pt will participate in at least five individual or group Activity Therapy sessions per week Weekly progress towards goal: did not achieve, 4/5 Group participation level: 4 full Weekly highlights: watched movie and chatted in the day room , listened to day discussion Saturday, assisted with gardening on Saturday Behaviors observed: calm and pleasant, independent and social Plan: no change to goal Beneficial adaptations: socialization, magazines
--- NOTE | 2021-08-10 14:04 | NUR ---
Pt has been pleasantly confused, calm, and medication compliant. She has attended all meals and is continuing to eat over 75% of her food. Pt has been socializing with others on the unit and attended group outside after lunch today and enjoyed listening to music and sharing stories. Pt will be discharging on Saturday with her daughter and going to [place]. Med Rec has been printed and is awaiting the doctors signature. SW will be finding out from family where to fax medication list.
[2021-08-10 15:44] VITALS: BP 120/74
[2021-08-10] MEDS: DONEPEZIL HCL 10 MG TABLET PO SCH (19:52)
[2021-08-10] MEDS: GABAPENTIN 300 MG CAPSULE. PO SCH (19:52)
--- NOTE | 2021-08-10 21:42 | PDOC ---
Exam Note: Ignacio Note: Please also refer to the separate dictated note~for this date of service dictated separately.~Patient seen individually. Discussed the patient with Nursing staff reviewed the chart.~Reviewed interim history and current functioning. Reviewed vital signs,~Labs/ Radiology~and current medications noted below. Continue current treatment with the changes noted in the dictated addendum note Assessment: Vital Signs/I&O: Vital Signs Date Time Temp Pulse Resp B/P (MAP) Pulse Ox O2 Delivery O2 Flow Rate FiO2 08/10/21 15:44 97.7 79 20 120/74 (89) 95 I & O 08/09/21 08/09/21 08/10/21 15:00 23:00 07:00 Intake Total 720 ml 320 ml Balance 720 ml 320 ml Current Medications: Meds: Current Medications Medications (Trade) Dose Ordered Sig/Ruth Route PRN Reason Start Time Stop Time Status Last Admin Dose Admin Acetaminophen (Tylenol) 650 mg PRN Q6HRS PRN PO PAIN / TEMP > 100.3'F 07/26/21 07:45 Aspirin (Aspirin Chewable) 81 mg DAILY PO 07/26/21 09:00 08/10/21 08:21 Citalopram Hydrobromide (CeleXA) 20 mg DAILY PO 07/26/21 09:00 07/27/21 10:11 DC 07/27/21 08:56 Donepezil HCl (Aricept) 10 mg QHS PO 07/26/21 21:00 08/10/21 19:52 Gabapentin (Neurontin) 600 mg HS PO 07/26/21 21:00 08/10/21 19:52 Levothyroxine Sodium (Synthroid) 50 mcg DAILY06 PO 07/26/21 08:00 08/10/21 05:30 Pantoprazole Sodium (Protonix) 40 mg DAILYAC PO 07/26/21 08:00 08/10/21 08:21 Quetiapine Fumarate (SEROquel) 12.5 mg PRN Q4HRS PRN PO ANXIETY / AGITATION 07/26/21 07:45 08/09/21 15:55 Non-Formulary Medication ([TwoCal HN 2.0 liq] ) 60 ml BID PO 07/26/21 09:00 07/26/21 08:01 DC Acetaminophen (Tylenol) 650 mg PRN Q6HRS PRN PO MILD PAIN / TEMP > 100.3'F 07/26/21 08:15 07/26/21 08:33 DC Multi-Ingredient Ointment (Analgesic [place]) 1 judith PRN QID PRN TP MUSCLE PAIN 07/26/21 08:15 Al Hydroxide/Mg Hydroxide (Mylanta Plus Xs) 15 ml PRN AFTMEALHC PRN PO DYSPEPSIA 07/26/21 08:15 Magnesium Hydroxide (Milk Of Magnesia) 2,400 mg PRN QHS PRN PO CONSTIPATION 07/26/21 08:15 Sertraline HCl (Zoloft) 50 mg DAILY PO 07/28/21 09:00 08/10/21 08:21 Vitamin D (Vitamin D3) 50,000 unit WEEKLY PO 07/30/21 16:30 08/06/21 08:16 I have reviewed the current psychotropics carefully including drug interactions. Risk benefit ratio favors no change other than as noted in my dictated progress note. Diagnosis: Problems: (1) Major neurocognitive disorder (2) Impulse control disorder, unspecified (3) Anxiety disorder, unspecified (4) Dementia, vascular, with depression (5) Dementia, vascular, with delusions (6) Dementia in Alzheimer's disease with depression (7) Dementia in Alzheimer's disease with delusions (8) Dementia of the Alzheimer's type with early onset with behavioral disturbance EVANS KWON MD Aug 10, 2021 21:42
--- NOTE | 2021-08-11 01:52 | NUR ---
Last evening pt sat quietly in the hallway and visited with others. She remains pleasantly confused and took meds whole. She was cooperative with cares has had no behaviors and is sleeping.
[2021-08-11] MEDS: LEVOTHYROXINE 50 MCG TABLET PO SCH (05:41)
[2021-08-11 06:01] VITALS: BP 104/65
[2021-08-11] MEDS: SERTRALINE 50 MG TABLET. PO SCH (08:35)
[2021-08-11] MEDS: ASPIRIN CHEWABLE 81 MG TABLET. PO SCH (08:35)
[2021-08-11] MEDS: PANTOPRAZOLE 40 MG TABLET. PO SCH (08:35)
--- NOTE | 2021-08-11 09:58 | NUR ---
BASSEM returned call to Lisa, pt who reports that she spoke with her Uncle Serafin and he has not only agreed for pt to be in [place], but has agreed to let them pick her stuff up from the house. He only wants to make sure that Lisa keeps him the loop and know that pt will be cared for. BASSEM gave encouraging words and empathized with Lisa on things working out in pt favor and assured her that pt would be ready for discharge tomorrow. BASSEM questioned Lisa on what pharmacy to call medications into so that we would be able to get those ready for the trip to [place]; BASSEM suggested [facility] but Lisa is requesting [facility]. BASSEM will notify staff and requested that once Lisa knew a more definitive time they were heading down to contact nursing on the main number and let them know. Lisa was very thankful for the care pt received and stated "I just love everything [facility] has done with my Mom. Thank you". Addendum: 08/11/21 at 1314 by ASHLEIGH LUEVANO Correction: Lisa is pt DTR, not as stated in the beginning of the note.
--- NOTE | 2021-08-11 15:42 | NUR ---
[facility] Social Work Discharge Planning Form Patient Name JENN HUMPHREYS Admit Date: 26 July 2021 DISCHARGE PLAN Discharge Destination: Pt to discharge to dtr home to await placement in [place], [place] Care Assessment: N/A Level II Assessment: N/A Transportation: Pt dtr to pick pt up on Saturday; requested that the dtr call with a more definitive time on Saturday Special Instructions/Notes: Please fax discharge orders, discharge medication list and discharge summary to the fax number(s) listed below. DISCHARGE TO HOME: Address: [address] [place], [place] [address]Sohail Carias , [id number]; [place] [address] Responsible Libertarian: Lisa Carrillo Pharm[facility]: [email or web address] Contact Information: [address] [facility], [place] [address] Primary Care Follow Up: Dr. Guilherme Burgos @ Contact Information: [address] [facility], [address]; [place] [address] Appointment: @ 9:00
[2021-08-11 15:43] VITALS: BP 109/73
[2021-08-11] MEDS ORDERED: CHOL500021 PO (18:19)
[2021-08-11] MEDS ORDERED: SERT50TA PO (18:20)
--- NOTE | 2021-08-11 18:30 | NUR ---
Patient has been calm, compliant, and pleasantly confused throughout the majority of this shift. She has been social with peers all day. After supper, patient was agitated, stating that she has to get home and that her was picking her up. She was redirected verbally and by letting her call her daughter. Will continue to monitor and report to oncoming shift.
[2021-08-11] MEDS: GABAPENTIN 300 MG CAPSULE. PO SCH (20:13)
[2021-08-11] MEDS: DONEPEZIL HCL 10 MG TABLET PO SCH (20:13)
--- NOTE | 2021-08-11 21:56 | PDOC ---
Exam Note: Ignacio Note: Please also refer to the separate dictated note~for this date of service dictated separately.~Patient seen individually. Discussed the patient with Nursing staff reviewed the chart.~Reviewed interim history and current functioning. Reviewed vital signs,~Labs/ Radiology~and current medications noted below. Continue current treatment with the changes noted in the dictated addendum note Assessment: Vital Signs/I&O: Vital Signs Date Time Temp Pulse Resp B/P (MAP) Pulse Ox O2 Delivery O2 Flow Rate FiO2 08/11/21 15:43 97.0 75 18 109/73 (85) 91 I & O 08/10/21 08/10/21 08/11/21 15:00 23:00 07:00 Intake Total 630 ml 720 ml Balance 630 ml 720 ml Current Medications: Meds: Current Medications Medications (Trade) Dose Ordered Sig/Ruth Route PRN Reason Start Time Stop Time Status Last Admin Dose Admin Acetaminophen (Tylenol) 650 mg PRN Q6HRS PRN PO PAIN / TEMP > 100.3'F 07/26/21 07:45 Aspirin (Aspirin Chewable) 81 mg DAILY PO 07/26/21 09:00 08/11/21 08:35 Citalopram Hydrobromide (CeleXA) 20 mg DAILY PO 07/26/21 09:00 07/27/21 10:11 DC 07/27/21 08:56 Donepezil HCl (Aricept) 10 mg QHS PO 07/26/21 21:00 08/11/21 20:13 Gabapentin (Neurontin) 600 mg HS PO 07/26/21 21:00 08/11/21 20:13 Levothyroxine Sodium (Synthroid) 50 mcg DAILY06 PO 07/26/21 08:00 08/11/21 05:41 Pantoprazole Sodium (Protonix) 40 mg DAILYAC PO 07/26/21 08:00 08/11/21 08:35 Quetiapine Fumarate (SEROquel) 12.5 mg PRN Q4HRS PRN PO ANXIETY / AGITATION 07/26/21 07:45 08/09/21 15:55 Non-Formulary Medication ([TwoCal HN 2.0 liq] ) 60 ml BID PO 07/26/21 09:00 07/26/21 08:01 DC Acetaminophen (Tylenol) 650 mg PRN Q6HRS PRN PO MILD PAIN / TEMP > 100.3'F 07/26/21 08:15 07/26/21 08:33 DC Multi-Ingredient Ointment (Analgesic [place]) 1 judith PRN QID PRN TP MUSCLE PAIN 07/26/21 08:15 Al Hydroxide/Mg Hydroxide (Mylanta Plus Xs) 15 ml PRN AFTMEALHC PRN PO DYSPEPSIA 07/26/21 08:15 Magnesium Hydroxide (Milk Of Magnesia) 2,400 mg PRN QHS PRN PO CONSTIPATION 07/26/21 08:15 Sertraline HCl (Zoloft) 50 mg DAILY PO 07/28/21 09:00 08/11/21 08:35 Vitamin D (Vitamin D3) 50,000 unit WEEKLY PO 07/30/21 16:30 08/06/21 08:16 I have reviewed the current psychotropics carefully including drug interactions. Risk benefit ratio favors no change other than as noted in my dictated progress note. 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
[2021-08-12] MEDS ORDERED: MAG-124 PO (00:24)
[2021-08-12] MEDS ORDERED: MAGN24003 PO (00:25)
[2021-08-12] MEDS ORDERED: METH57CR17 TP (00:27)
[2021-08-12 05:50] VITALS: BP 108/60
[2021-08-12] MEDS: LEVOTHYROXINE 50 MCG TABLET PO SCH (05:53)
[2021-08-12] MEDS: ASPIRIN CHEWABLE 81 MG TABLET. PO SCH (08:32)
[2021-08-12] MEDS: PANTOPRAZOLE 40 MG TABLET. PO SCH (08:33)
[2021-08-12] MEDS: SERTRALINE 50 MG TABLET. PO SCH (08:33)
[2021-08-12] MEDS: QUEtiapine 25 MG TABLET. PO PRN (13:57)
[2021-08-12 15:29] VITALS: BP 106/63
--- NOTE | 2021-08-12 18:25 | NUR ---
Patient has been social, compliant, and pleasantly confused throughout the majority of this shift. She has at multiple times been preoccupied with going home to meet her daughter. She was redirectable at times, though in the early afternoon she was more agitated and demanding. PRN medication provided per eMAR. Patient was then redirected and remained calm until after supper when she again started to become more agitated; provided patient with a note that states: 'Vanesa, You are a patient in the hospital. Lisa will be here to pick you up in the morning. Dr. Dhillon wants you to stay one more night.' This has satisfied her at this time. Will continue to monitor and report to oncoming shift.
[2021-08-12] MEDS: DONEPEZIL HCL 10 MG TABLET PO SCH (20:22)
[2021-08-12] MEDS: GABAPENTIN 300 MG CAPSULE. PO SCH (20:23)
--- NOTE | 2021-08-12 21:59 | PDOC ---
Exam Note: Ignacio Note: Please also refer to the separate dictated note~for this date of service dictated separately.~Patient seen individually. Discussed the patient with Nursing staff reviewed the chart.~Reviewed interim history and current functioning. Reviewed vital signs,~Labs/ Radiology~and current medications noted below. Continue current treatment with the changes noted in the dictated addendum note Assessment: Vital Signs/I&O: Vital Signs Date Time Temp Pulse Resp B/P (MAP) Pulse Ox O2 Delivery O2 Flow Rate FiO2 08/12/21 15:29 97.3 70 18 106/63 (77) 95 Room Air I & O 08/11/21 08/11/21 08/12/21 15:00 23:00 07:00 Intake Total 630 ml 540 ml Balance 630 ml 540 ml Current Medications: Meds: Current Medications Medications (Trade) Dose Ordered Sig/Ruth Route PRN Reason Start Time Stop Time Status Last Admin Dose Admin Acetaminophen (Tylenol) 650 mg PRN Q6HRS PRN PO PAIN / TEMP > 100.3'F 07/26/21 07:45 Aspirin (Aspirin Chewable) 81 mg DAILY PO 07/26/21 09:00 08/12/21 08:32 Citalopram Hydrobromide (CeleXA) 20 mg DAILY PO 07/26/21 09:00 07/27/21 10:11 DC 07/27/21 08:56 Donepezil HCl (Aricept) 10 mg QHS PO 07/26/21 21:00 08/12/21 20:22 Gabapentin (Neurontin) 600 mg HS PO 07/26/21 21:00 08/12/21 20:23 Levothyroxine Sodium (Synthroid) 50 mcg DAILY06 PO 07/26/21 08:00 08/12/21 05:53 Pantoprazole Sodium (Protonix) 40 mg DAILYAC PO 07/26/21 08:00 08/12/21 08:33 Quetiapine Fumarate (SEROquel) 12.5 mg PRN Q4HRS PRN PO ANXIETY / AGITATION 07/26/21 07:45 08/12/21 13:57 Non-Formulary Medication ([TwoCal HN 2.0 liq] ) 60 ml BID PO 07/26/21 09:00 07/26/21 08:01 DC Acetaminophen (Tylenol) 650 mg PRN Q6HRS PRN PO MILD PAIN / TEMP > 100.3'F 07/26/21 08:15 07/26/21 08:33 DC Multi-Ingredient Ointment (Analgesic [place]) 1 judith PRN QID PRN TP MUSCLE PAIN 07/26/21 08:15 Al Hydroxide/Mg Hydroxide (Mylanta Plus Xs) 15 ml PRN AFTMEALHC PRN PO DYSPEPSIA 07/26/21 08:15 Magnesium Hydroxide (Milk Of Magnesia) 2,400 mg PRN QHS PRN PO CONSTIPATION 07/26/21 08:15 Sertraline HCl (Zoloft) 50 mg DAILY PO 07/28/21 09:00 08/12/21 08:33 Vitamin D (Vitamin D3) 50,000 unit WEEKLY PO 07/30/21 16:30 08/06/21 08:16 I have reviewed the current psychotropics carefully including drug interactions. Risk benefit ratio favors no change other than as noted in my dictated progress note. 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
[2021-08-13] MEDS: LEVOTHYROXINE 50 MCG TABLET PO SCH (05:16)
[2021-08-13 06:04] VITALS: BP 97/60
[2021-08-13] MEDS: SERTRALINE 50 MG TABLET. PO SCH (08:39)
[2021-08-13] MEDS: PANTOPRAZOLE 40 MG TABLET. PO SCH (08:39)
[2021-08-13] MEDS: ASPIRIN CHEWABLE 81 MG TABLET. PO SCH (08:39)
[2021-08-13 10:05] LABS: BASO % 1 % (0-3); EOS # 0.1 x10^3/uL (0.0-0.7); EOS % 2 % (0-3); HEMATOCRIT 39.1 % (36.0-47.0); HEMOGLOBIN 12.8 g/dL (12.0-15.5); LYMPH # 1.7 x10^3/uL (1.0-4.8); LYMPH % 24 % (24-48); MEAN CORPUSCULAR HEMOGLOBIN 28 pg (25-35); MEAN CORPUSCULAR HGB CONC 33 g/dL (31-37); MEAN CORPUSCULAR VOLUME 87 fL (79-100); MONO # 0.5 x10^3/uL (0.0-1.1); MONO % 8 % (0-9); NEUT # 4.6 x10^3uL (1.8-7.7); NEUT % 65 % (31-73); PLATELET COUNT 294 x10^3/uL (140-400); RED BLOOD COUNT 4.48 x10^6/uL (3.50-5.40); RED CELL DISTRIBUTION WIDTH 15.9 % (11.5-14.5)
[2021-08-13 10:15] LABS: ALBUMIN 3.1 g/dL (3.4-5.0); ALBUMIN/GLOBULIN RATIO 0.9 (1.0-1.7); CALCIUM 8.9 mg/dL (8.5-10.1); CREATININE 0.9 mg/dL (0.6-1.0); GFR 59.1; POTASSIUM 3.9 mmol/L (3.5-5.1); TOTAL BILIRUBIN 0.3 mg/dL (0.2-1.0); TOTAL PROTEIN 6.7 g/dL (6.4-8.2)
[2021-08-13] MEDS: CHOLECALCIFEROL (VITAMIN D3) 50,000 UNIT CAPSULE PO SCH (10:32)
--- NOTE | 2021-08-13 14:53 | NUR ---
Nsg Note; Vanesa Justin has been calm and cooperative today. She is med compliant, taking meds whole. She is forgetful and has been unable to remember her daughter is picking her up for discharge today.
[2021-08-13 16:23] VITALS: BP 138/68
[2021-08-13] MEDS: GABAPENTIN 300 MG CAPSULE. PO SCH (19:09)
[2021-08-13] MEDS: DONEPEZIL HCL 10 MG TABLET PO SCH (19:09)
[2021-08-13] MEDS: QUEtiapine 25 MG TABLET. PO PRN (19:09)
--- NOTE | 2021-08-13 19:31 | NUR ---
Transition Record was faxed to follow-up provider with the following elements: Reason for admission, procedures, tests, principal diagnosis, pending studies, patient instructions, 24/06 contact information for unit, phone number to obtain pending test results, plan for follow-up care, physician follow-up, advanced directive information, and medication list with dose, duration and instructions. This information was included in the following documents: History and physical, lab results, study results, progress notes, social work planning form, DC instruction form, patient visit summary, and medication reconciliation form. Date & time record faxed: 08/12/21 at 0131 Record faxed to: Dr. ADDIE Burgos, PCP, and [address] [facility] [place] Record discussed with/ report given to: Lisa Carrillo, daughter/DPOA
--- NOTE | 2021-08-13 23:48 | DS ---
DATE OF DISCHARGE: 08/13/2021 DISCHARGE SUMMARY/PSYCHIATRIC PROGRESS NOTE This note covers elements not covered in the initial note, 08/13/2021. REASON FOR ADMISSION: Please refer to the admission history for details. Briefly, the patient is an 89-year-old female referred to us from [facility] by her primary care physician on account of worsening confusion, making statements to her daughter that she wanted "out of this world." She had been irritable, angry, threw her table. She was combative towards her and peer. She is agitated, verbally aggressive, cursing, exit seeking, throwing food, all within the context of her diagnosis of major neurocognitive disorder, Alzheimer, vascular with delusion, depression, behavioral disturbance and a failure of outpatient psychiatric interventions. Behaviors were deemed dangerous, unmanageable, having failed outpatient treatment. She was referred for inpatient psychiatric stabilization. SIGNIFICANT FINDINGS AND CLINICAL COURSE: Following admission, the patient was seen daily individually by myself from a psychiatric standpoint, medical followup, Dr. Cabrera/Dr. Valentin. The patient was observed baseline and remained confused, somewhat depressed, anxious, irritable, intermittently somewhat paranoid. Adjustments were made in her psychotropics and she seemed to respond to a combination of Zoloft 50 mg a day, Seroquel 12.5 mg at 1400 hours, Aricept 10 mg at bedtime, Seroquel p.r.n. Gradually mood appeared to improve. She is still confused, but less paranoid. Not angry, aggressive. Her daughter made arrangements to take her back with her to [place], possible placement in the facility there rather than leaving her here. REVIEW OF SYSTEMS: Prior to discharge, no CV, , pulmonary, eye, ENT system symptoms on review. MENTAL STATUS EXAMINATION: Oriented to herself. Insight, judgment, recent and remote memory, attention, concentration, fund of knowledge poor consistent with her diagnosis. CONDITION ON DISCHARGE: Improved. FINAL DIAGNOSES: Major neurocognitive disorder, Alzheimer, vascular with delusion, depression, behavioral disturbance, anxiety disorder, unspecified; impulse control disorder, unspecified. Rest unchanged from admission. DISCHARGE MEDICATIONS: Please refer to the MRAD. DISCHARGE INSTRUCTIONS: Outpatient psychiatric and medical followup in [place] as arranged by social service staff. Time for discharge day management greater than [address]: RICARDO/anastasiya TID: [id number]
--- NOTE | 2021-08-14 09:09 | PDOC ---
Exam Note: Ignacio Note: This note is a late entry for 08/10/2021 covers elements not covered in my initial note. Subjective: The patient was reviewed at treatment team meeting on telehealth rounds in the morning of 08/10/2021 because of the COVID-19 pandemic and my own ill health and restrictions to be on the unit consequent to this with Maame Rosario, Michelle Hartmann (social media community manager), Sima, activity therapy and Mustapha RN, discussed and reviewed the chart. We reviewed the patients progress, history, diagnoses, treatment and side-effects of medications. The patient slept 7-1/4 hours previous night. She remains confused, otherwise, cooperative, somewhat exit seeking in the evening. We discussed with Jt KRAMER in the evening. She has attended 4 groups in the past one week. Reportedly her daughter is driving down from [place] to take her back there and I made the patient aware of this during the individual visit but she does not quite remember it shortly thereafter. Review of Systems: Ambulation impaired. No CV, , pulmonary, eye, ENT system symptoms on review. Reliability poor. Mental Status Exam: The patient is oriented to herself. Insight and judgment, recent and remote memory, attention and concentration, fund of knowledge is poor consistent with her diagnoses. Laboratory Data: Reviewed. Impression: Major neurocognitive disorder Alzheimer vascular with delusion, depression, behavioral disturbance. Anxiety disorder, unspecified. Impulse control disorder, unspecified. Plan: No change from initial note. Assessment: Vital Signs/I&O: Vital Signs Date Time Temp Pulse Resp B/P (MAP) Pulse Ox O2 Delivery O2 Flow Rate FiO2 08/13/21 16:23 98.3 79 18 138/68 (91) 96 08/12/21 15:29 Room Air I & O 08/13/21 08/13/21 08/14/21 15:00 23:00 07:00 Intake Total 600 ml Balance 600 ml Labs: Laboratory Tests Test 08/13/21 09:10 White Blood Count 7.0 x10^3/uL (4.0-11.0) Red Blood Count 4.48 x10^6/uL (3.50-5.40) Hemoglobin 12.8 g/dL (12.0-15.5) Hematocrit 39.1 % (36.0-47.0) Mean Corpuscular Volume 87 fL (79-100) Mean Corpuscular Hemoglobin 28 pg (25-35) Mean Corpuscular Hemoglobin Concent 33 g/dL (31-37) Red Cell Distribution Width 15.9 % (11.5-14.5) H Platelet Count 294 x10^3/uL (140-400) Neutrophils (%) (Auto) 65 % (31-73) Lymphocytes (%) (Auto) 24 % (24-48) Monocytes (%) (Auto) 8 % (0-9) Eosinophils (%) (Auto) 2 % (0-3) Basophils (%) (Auto) 1 % (0-3) Neutrophils # (Auto) 4.6 x10^3uL (1.8-7.7) Lymphocytes # (Auto) 1.7 x10^3/uL (1.0-4.8) Monocytes # (Auto) 0.5 x10^3/uL (0.0-1.1) Eosinophils # (Auto) 0.1 x10^3/uL (0.0-0.7) Basophils # (Auto) 0.0 x10^3/uL (0.0-0.2) Sodium Level 143 mmol/L (136-145) Potassium Level 3.9 mmol/L (3.5-5.1) Chloride Level 107 mmol/L (98-107) Carbon Dioxide Level 26 mmol/L (21-32) Anion Gap 10 (6-14) Blood Urea Nitrogen 18 mg/dL (7-20) Creatinine 0.9 mg/dL (0.6-1.0) Estimated GFR (Cockcroft-Gault) 59.1 BUN/Creatinine Ratio 20 (6-20) Glucose Level 127 mg/dL (70-99) H Calcium Level 8.9 mg/dL (8.5-10.1) Total Bilirubin 0.3 mg/dL (0.2-1.0) Aspartate Amino Transferase (AST) 15 U/L (15-37) Alanine Aminotransferase (ALT) 20 U/L (14-59) Alkaline Phosphatase 90 U/L (46-116) Total Protein 6.7 g/dL (6.4-8.2) Albumin 3.1 g/dL (3.4-5.0) L Albumin/Globulin Ratio 0.9 (1.0-1.7) L Current Medications: Meds: Laboratory Tests Test 08/13/21 09:10 White Blood Count 7.0 x10^3/uL Red Blood Count 4.48 x10^6/uL Hemoglobin 12.8 g/dL Hematocrit 39.1 % Mean Corpuscular Volume 87 fL Mean Corpuscular Hemoglobin 28 pg Mean Corpuscular Hemoglobin Concent 33 g/dL Red Cell Distribution Width 15.9 % Platelet Count 294 x10^3/uL Neutrophils (%) (Auto) 65 % Lymphocytes (%) (Auto) 24 % Monocytes (%) (Auto) 8 % Eosinophils (%) (Auto) 2 % Basophils (%) (Auto) 1 % Neutrophils # (Auto) 4.6 x10^3uL Lymphocytes # (Auto) 1.7 x10^3/uL Monocytes # (Auto) 0.5 x10^3/uL Eosinophils # (Auto) 0.1 x10^3/uL Basophils # (Auto) 0.0 x10^3/uL Sodium Level 143 mmol/L Potassium Level 3.9 mmol/L Chloride Level 107 mmol/L Carbon Dioxide Level 26 mmol/L Anion Gap 10 Blood Urea Nitrogen 18 mg/dL Creatinine 0.9 mg/dL Estimated GFR (Cockcroft-Gault) 59.1 BUN/Creatinine Ratio 20 Glucose Level 127 mg/dL Calcium Level 8.9 mg/dL Total Bilirubin 0.3 mg/dL Aspartate Amino Transf (AST/SGOT) 15 U/L Alanine Aminotransferase (ALT/SGPT) 20 U/L Alkaline Phosphatase 90 U/L Total Protein 6.7 g/dL Albumin 3.1 g/dL Albumin/Globulin Ratio 0.9 Current Medications Medications (Trade) Dose Ordered Sig/Ruth Route PRN Reason Start Time Stop Time Status Last Admin Dose Admin Acetaminophen (Tylenol) 650 mg PRN Q6HRS PRN PO PAIN / TEMP > 100.3'F 07/26/21 07:45 08/13/21 19:37 DC Aspirin (Aspirin Chewable) 81 mg DAILY PO 07/26/21 09:00 08/13/21 19:37 DC 08/13/21 08:39 Citalopram Hydrobromide (CeleXA) 20 mg DAILY PO 07/26/21 09:00 07/27/21 10:11 DC 07/27/21 08:56 Donepezil HCl (Aricept) 10 mg QHS PO 07/26/21 21:00 08/13/21 19:37 DC 08/13/21 19:09 Gabapentin (Neurontin) 600 mg HS PO 07/26/21 21:00 08/13/21 19:37 DC 08/13/21 19:09 Levothyroxine Sodium (Synthroid) 50 mcg DAILY06 PO 07/26/21 08:00 08/13/21 19:37 DC 08/13/21 05:16 Pantoprazole Sodium (Protonix) 40 mg DAILYAC PO 07/26/21 08:00 08/13/21 19:37 DC 08/13/21 08:39 Quetiapine Fumarate (SEROquel) 12.5 mg PRN Q4HRS PRN PO ANXIETY / AGITATION 07/26/21 07:45 08/13/21 19:37 DC 08/13/21 19:09 Non-Formulary Medication ([TwoCal HN 2.0 liq] ) 60 ml BID PO 07/26/21 09:00 07/26/21 08:01 DC Acetaminophen (Tylenol) 650 mg PRN Q6HRS PRN PO MILD PAIN / TEMP > 100.3'F 07/26/21 08:15 07/26/21 08:33 DC Multi-Ingredient Ointment (Analgesic [place]) 1 judith PRN QID PRN TP MUSCLE PAIN 07/26/21 08:15 08/13/21 19:37 DC Al Hydroxide/Mg Hydroxide (Mylanta Plus Xs) 15 ml PRN AFTMEALHC PRN PO DYSPEPSIA 07/26/21 08:15 08/13/21 19:37 DC Magnesium Hydroxide (Milk Of Magnesia) 2,400 mg PRN QHS PRN PO CONSTIPATION 07/26/21 08:15 08/13/21 19:37 DC Sertraline HCl (Zoloft) 50 mg DAILY PO 07/28/21 09:00 08/13/21 19:37 DC 08/13/21 08:39 Vitamin D (Vitamin D3) 50,000 unit WEEKLY PO 07/30/21 16:30 08/13/21 19:37 DC 08/13/21 10:32 I have reviewed the current psychotropics carefully including drug interactions. Risk benefit ratio favors no change other than as noted in my dictated progress note. 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
--- NOTE | 2021-08-14 11:20 | PDOC ---
Exam Note: Ignacio Note: This note is a late entry for 08/11/2021 covers elements not covered in my initial note. Subjective: The patient was seen individually in the evening of 08/11/2021 with Jt KRAMER, discussed and reviewed the chart. The patient slept 7-1/2 hours previous night. She remains confused, appropriate. Plan is for her to be discharged with the daughter to be going to [place] tomorrow Sunday 08/12. I addressed this with the patient but she is quite forgetful of it. Review of Systems: Ambulation impaired. No CV, , pulmonary, eye, ENT system symptoms on review. Mental Status Exam: The patient is oriented to herself. Insight and judgment, recent and remote memory, attention and concentration, fund of knowledge is poor consistent with her diagnoses. Laboratory Data: Reviewed. Impression: Major neurocognitive disorder Alzheimer vascular with delusion, depression, behavioral disturbance. Anxiety disorder, unspecified. Impulse control disorder, unspecified. Plan: No change from initial note. Assessment: Vital Signs/I&O: Vital Signs Date Time Temp Pulse Resp B/P (MAP) Pulse Ox O2 Delivery O2 Flow Rate FiO2 08/13/21 16:23 98.3 79 18 138/68 (91) 96 08/12/21 15:29 Room Air I & O 08/13/21 08/13/21 08/14/21 15:00 23:00 07:00 Intake Total 600 ml Balance 600 ml Current Medications: Meds: Current Medications Medications (Trade) Dose Ordered Sig/Ruth Route PRN Reason Start Time Stop Time Status Last Admin Dose Admin Acetaminophen (Tylenol) 650 mg PRN Q6HRS PRN PO PAIN / TEMP > 100.3'F 07/26/21 07:45 08/13/21 19:37 DC Aspirin (Aspirin Chewable) 81 mg DAILY PO 07/26/21 09:00 08/13/21 19:37 DC 08/13/21 08:39 Citalopram Hydrobromide (CeleXA) 20 mg DAILY PO 07/26/21 09:00 07/27/21 10:11 DC 07/27/21 08:56 Donepezil HCl (Aricept) 10 mg QHS PO 07/26/21 21:00 08/13/21 19:37 DC 08/13/21 19:09 Gabapentin (Neurontin) 600 mg HS PO 07/26/21 21:00 08/13/21 19:37 DC 08/13/21 19:09 Levothyroxine Sodium (Synthroid) 50 mcg DAILY06 PO 07/26/21 08:00 08/13/21 19:37 DC 08/13/21 05:16 Pantoprazole Sodium (Protonix) 40 mg DAILYAC PO 07/26/21 08:00 08/13/21 19:37 DC 08/13/21 08:39 Quetiapine Fumarate (SEROquel) 12.5 mg PRN Q4HRS PRN PO ANXIETY / AGITATION 07/26/21 07:45 08/13/21 19:37 DC 08/13/21 19:09 Non-Formulary Medication ([TwoCal HN 2.0 liq] ) 60 ml BID PO 07/26/21 09:00 07/26/21 08:01 DC Acetaminophen (Tylenol) 650 mg PRN Q6HRS PRN PO MILD PAIN / TEMP > 100.3'F 07/26/21 08:15 07/26/21 08:33 DC Multi-Ingredient Ointment (Analgesic [place]) 1 judith PRN QID PRN TP MUSCLE PAIN 07/26/21 08:15 08/13/21 19:37 DC Al Hydroxide/Mg Hydroxide (Mylanta Plus Xs) 15 ml PRN AFTMEALHC PRN PO DYSPEPSIA 07/26/21 08:15 08/13/21 19:37 DC Magnesium Hydroxide (Milk Of Magnesia) 2,400 mg PRN QHS PRN PO CONSTIPATION 07/26/21 08:15 08/13/21 19:37 DC Sertraline HCl (Zoloft) 50 mg DAILY PO 07/28/21 09:00 08/13/21 19:37 DC 08/13/21 08:39 Vitamin D (Vitamin D3) 50,000 unit WEEKLY PO 07/30/21 16:30 08/13/21 19:37 DC 08/13/21 10:32 I have reviewed the current psychotropics carefully including drug interactions. Risk benefit ratio favors no change other than as noted in my dictated progress note. Diagnosis: Problems: (1) Major neurocognitive disorder (2) Impulse control disorder, unspecified (3) Anxiety disorder, unspecified (4) Dementia, vascular, with depression (5) Dementia, vascular, with delusions (6) Dementia in Alzheimer's disease with depression (7) Dementia in Alzheimer's disease with delusions (8) Dementia of the Alzheimer's type with early onset with behavioral dist EVANS Ortega MD Aug 14, 2021 11:20
--- NOTE | 2021-08-14 11:31 | PDOC ---
Exam Note: Ignacio Note: This note is a late entry for 08/12/2021 covers elements not covered in my initial note. Subjective: The patient was seen individually in the evening of 08/12/2021 with Elmer KRAMER, discussed and reviewed the chart. The patient slept 6-3/4 hours previous night. She has been sad, tearful today because her daughter could not make the drive in from [place] and she would not be picked up till tomorrow. She seemed to comprehend this change but the discharge is still planned for 08/13. I addressed this with her. Review of Systems: Ambulation impaired. No CV, , pulmonary, eye, ENT system symptoms on review. Mental Status Exam: The patient is oriented to herself. Insight and judgment, recent and remote memory, attention and concentration, fund of knowledge is poor consistent with her diagnoses. Laboratory Data: Reviewed. Impression: Major neurocognitive disorder Alzheimer vascular with delusion, depression, behavioral disturbance. Anxiety disorder, unspecified. Impulse control disorder, unspecified. Plan: No change from initial note. Assessment: Vital Signs/I&O: Vital Signs Date Time Temp Pulse Resp B/P (MAP) Pulse Ox O2 Delivery O2 Flow Rate FiO2 08/13/21 16:23 98.3 79 18 138/68 (91) 96 08/12/21 15:29 Room Air I & O 08/13/21 08/13/21 08/14/21 15:00 23:00 07:00 Intake Total 600 ml Balance 600 ml Current Medications: Meds: Current Medications Medications (Trade) Dose Ordered Sig/Ruth Route PRN Reason Start Time Stop Time Status Last Admin Dose Admin Acetaminophen (Tylenol) 650 mg PRN Q6HRS PRN PO PAIN / TEMP > 100.3'F 07/26/21 07:45 08/13/21 19:37 DC Aspirin (Aspirin Chewable) 81 mg DAILY PO 07/26/21 09:00 08/13/21 19:37 DC 08/13/21 08:39 Citalopram Hydrobromide (CeleXA) 20 mg DAILY PO 07/26/21 09:00 07/27/21 10:11 DC 07/27/21 08:56 Donepezil HCl (Aricept) 10 mg QHS PO 07/26/21 21:00 08/13/21 19:37 DC 08/13/21 19:09 Gabapentin (Neurontin) 600 mg HS PO 07/26/21 21:00 08/13/21 19:37 DC 08/13/21 19:09 Levothyroxine Sodium (Synthroid) 50 mcg DAILY06 PO 07/26/21 08:00 08/13/21 19:37 DC 08/13/21 05:16 Pantoprazole Sodium (Protonix) 40 mg DAILYAC PO 07/26/21 08:00 08/13/21 19:37 DC 08/13/21 08:39 Quetiapine Fumarate (SEROquel) 12.5 mg PRN Q4HRS PRN PO ANXIETY / AGITATION 07/26/21 07:45 08/13/21 19:37 DC 08/13/21 19:09 Non-Formulary Medication ([TwoCal HN 2.0 liq] ) 60 ml BID PO 07/26/21 09:00 07/26/21 08:01 DC Acetaminophen (Tylenol) 650 mg PRN Q6HRS PRN PO MILD PAIN / TEMP > 100.3'F 07/26/21 08:15 07/26/21 08:33 DC Multi-Ingredient Ointment (Analgesic [place]) 1 judith PRN QID PRN TP MUSCLE PAIN 07/26/21 08:15 08/13/21 19:37 DC Al Hydroxide/Mg Hydroxide (Mylanta Plus Xs) 15 ml PRN AFTMEALHC PRN PO DYSPEPSIA 07/26/21 08:15 08/13/21 19:37 DC Magnesium Hydroxide (Milk Of Magnesia) 2,400 mg PRN QHS PRN PO CONSTIPATION 07/26/21 08:15 08/13/21 19:37 DC Sertraline HCl (Zoloft) 50 mg DAILY PO 07/28/21 09:00 08/13/21 19:37 DC 08/13/21 08:39 Vitamin D (Vitamin D3) 50,000 unit WEEKLY PO 07/30/21 16:30 08/13/21 19:37 DC 08/13/21 10:32 I have reviewed the current psychotropics carefully including drug interactions. Risk benefit ratio favors no change other than as noted in my dictated progress note. Diagnosis: Problems: (1) Major neurocognitive disorder (2) Impulse control disorder, unspecified (3) Anxiety disorder, unspecified (4) Dementia, vascular, with depression (5) Dementia, vascular, with delusions (6) Dementia in Alzheimer's disease with depression (7) Dementia in Alzheimer's disease with delusions (8) Dementia of the Alzheimer's type with early onset with behavioral disturbance EVANS KWON MD Aug 14, 2021 11:31
--- NOTE | 2021-08-14 11:55 | PDOC ---
Exam Note: Ignacio Note: Late entry for date of discharge 08/13/2021. Please also refer to the separate dictated note~for this date of service dictated separately.~Patient seen individually. Discussed the patient with Nursing staff reviewed the chart.~Reviewed interim history and current functioning. Reviewed vital signs,~Labs/ Radiology~and current medications noted below. Continue current treatment with the changes noted in the dictated addendum note Assessment: Vital Signs/I&O: Vital Signs Date Time Temp Pulse Resp B/P (MAP) Pulse Ox O2 Delivery O2 Flow Rate FiO2 08/13/21 16:23 98.3 79 18 138/68 (91) 96 08/12/21 15:29 Room Air I & O 08/13/21 08/13/21 08/14/21 15:00 23:00 07:00 Intake Total 600 ml Balance 600 ml Current Medications: Meds: Current Medications Medications (Trade) Dose Ordered Sig/Ruth Route PRN Reason Start Time Stop Time Status Last Admin Dose Admin Acetaminophen (Tylenol) 650 mg PRN Q6HRS PRN PO PAIN / TEMP > 100.3'F 07/26/21 07:45 08/13/21 19:37 DC Aspirin (Aspirin Chewable) 81 mg DAILY PO 07/26/21 09:00 08/13/21 19:37 DC 08/13/21 08:39 Citalopram Hydrobromide (CeleXA) 20 mg DAILY PO 07/26/21 09:00 07/27/21 10:11 DC 07/27/21 08:56 Donepezil HCl (Aricept) 10 mg QHS PO 07/26/21 21:00 08/13/21 19:37 DC 08/13/21 19:09 Gabapentin (Neurontin) 600 mg HS PO 07/26/21 21:00 08/13/21 19:37 DC 08/13/21 19:09 Levothyroxine Sodium (Synthroid) 50 mcg DAILY06 PO 07/26/21 08:00 08/13/21 19:37 DC 08/13/21 05:16 Pantoprazole Sodium (Protonix) 40 mg DAILYAC PO 07/26/21 08:00 08/13/21 19:37 DC 08/13/21 08:39 Quetiapine Fumarate (SEROquel) 12.5 mg PRN Q4HRS PRN PO ANXIETY / AGITATION 07/26/21 07:45 08/13/21 19:37 DC 08/13/21 19:09 Non-Formulary Medication ([TwoCal HN 2.0 liq] ) 60 ml BID PO 07/26/21 09:00 07/26/21 08:01 DC Acetaminophen (Tylenol) 650 mg PRN Q6HRS PRN PO MILD PAIN / TEMP > 100.3'F 07/26/21 08:15 07/26/21 08:33 DC Multi-Ingredient Ointment (Analgesic [place]) 1 judith PRN QID PRN TP MUSCLE PAIN 07/26/21 08:15 08/13/21 19:37 DC Al Hydroxide/Mg Hydroxide (Mylanta Plus Xs) 15 ml PRN AFTMEALHC PRN PO DYSPEPSIA 07/26/21 08:15 08/13/21 19:37 DC Magnesium Hydroxide (Milk Of Magnesia) 2,400 mg PRN QHS PRN PO CONSTIPATION 07/26/21 08:15 08/13/21 19:37 DC Sertraline HCl (Zoloft) 50 mg DAILY PO 07/28/21 09:00 08/13/21 19:37 DC 08/13/21 08:39 Vitamin D (Vitamin D3) 50,000 unit WEEKLY PO 07/30/21 16:30 08/13/21 19:37 DC 08/13/21 10:32 I have reviewed the current psychotropics carefully including drug interactions. Risk benefit ratio favors no change other than as noted in my dictated progress note. Diagnosis: Problems: (1) Major neurocognitive disorder (2) Impulse control disorder, unspecified (3) Anxiety disorder, unspecified (4) Dementia, vascular, with depression (5) Dementia, vascular, with delusions (6) Dementia in Alzheimer's disease with depression (7) Dementia in Alzheimer's disease with delusions (8) Dementia of the Alzheimer's type with early onset with behavioral disturbance EVANS KWON MD Aug 14, 2021 11:55
== END 2021-08-13 19:20 | disposition home or self-care (01) | DRG 57 ==
LOC: GEROPSY 07:35
PROVIDERS: ADMIT Psychiatry & Neurology Psychiatry; ATTEND Psychiatry & Neurology Psychiatry
DX: G30.9 Alzheimer's disease, unspecified (principal); F02.81 Dementia in other diseases classified elsewhere, unspecified severity, with behavioral disturbance; F01.51 Vascular dementia, unspecified severity, with behavioral disturbance; F33.2 Major depressive disorder, recurrent severe without psychotic features; E03.9 Hypothyroidism, unspecified; F41.9 Anxiety disorder, unspecified; F63.9 Impulse disorder, unspecified; I25.10 Atherosclerotic heart disease of native coronary artery without angina pectoris; I73.9 Peripheral vascular disease, unspecified; Z20.822 Contact with and (suspected) exposure to COVID-19; Z79.899 Other long term (current) drug therapy
CPT/HCPCS: 36415; 80053; 80061; 81001; 82306; 82607; 83036; 83540; 83550; 83735; 84439; 84443; 84480; 85025; 85379; 86592; 87426; 93005; G0378; G0379; U0003; 97530